=== PATIENT | male | born 1955 | race African-American/Black ===

== ENCOUNTER 2017-05-28 14:43 | Outpatient (CLI) | payer MEDICARE, MEDICAID ==
--- OUTSIDE RECORDS SUMMARY | 2017-05-28 14:46 | XMS | Clinical Summary ---
:1955 Author Organization [facility] Address [address] [place] [phone] Phone Care Team Providers Name Role Phone , Primary Care Provider Unavailable Allergies Not on File Current Medications Not on file Active Problems Not on file Social History Tobacco Use Types Packs/Day Years Used Date Never Assessed Sex Assigned at Date Recorded Not on file Last Filed Vital Signs Not on file Plan of Treatment Not on file Results Not on filefrom Last 3 Months
[2017-05-28 16:20] LABS: Hematocrit 39.8 % (42.0-52.0); Mean Platelet Volume 7.2 fL (7.4-10.4); Red Blood Cell (RBC) Count 3.84 mill/uL (4.70-6.10); White Blood Cell (WBC) Count 5.5 thou/uL (4.8-10.8)
[2017-05-28 16:26] LABS: PTT 34.6 SEC (22.9-36.1); Prothrombin Time 13.6 SEC (12.0-14.7)
== END 2017-05-28 14:44 | disposition home or self-care (01) ==
LOC: LABBT 14:43
PROVIDERS: ATTEND Surgery
DX: Z01.818 Encounter for other preprocedural examination (principal); M48.02 Spinal stenosis, cervical region; M50.00 Cervical disc disorder with myelopathy, unspecified cervical region; M50.10 Cervical disc disorder with radiculopathy, unspecified cervical region
CPT/HCPCS: 85027; 85610; 85730; 93005; 93010

== ENCOUNTER 2017-06-05 05:43 | Day surgery (SDC) | payer MEDICARE, MEDICAID ==
[2017-06-05] MEDS ORDERED: Thrombin 5000 UNITS/5 ML VIAL ONE (06:29)
[2017-06-05] MEDS ORDERED: Sodium Chloride 0.9% 10 ML ONE (06:29)
[2017-06-05] MEDS ORDERED: Phenylephrine 10 MG/NS 250 ML 250 ML ONE (07:14)
[2017-06-05] MEDS ORDERED: Albumin 5% 500 ML ONE (07:14)
[2017-06-05] MEDS ORDERED: Midazolam HCl 2 mg/2 ml Vial ONE (07:30)
[2017-06-05] MEDS ORDERED: Fentanyl 250 MCG/5 ML VIAL ONE ×2 (07:30→09:33)
[2017-06-05] MEDS ORDERED: Glycopyrrolate 0.2 MG/ML 5 ML SYRINGE ONE (07:36)
[2017-06-05] MEDS ORDERED: Vecuronium 10 MG VIAL ONE ×2 (07:36→08:51)
[2017-06-05] MEDS ORDERED: Dexamethasone 20 MG/5 ML VIAL ONE (07:36)
[2017-06-05] MEDS ORDERED: Esmolol 100 MG/10 ML VIAL ONE (07:36)
[2017-06-05] MEDS ORDERED: Ondansetron HCl/PF 4 MG/2 ML Vial ONE (07:36)
[2017-06-05] MEDS ORDERED: PHENYLEPHRINE-NS 100 MCG/ML 10 ML SYRINGE ONE (07:36)
[2017-06-05] MEDS ORDERED: Lidocaine 2% PF 10 ML AMP (For Epidural Use) ONE (07:36)
[2017-06-05] MEDS ORDERED: Propofol 200 MG/20 ML VIAL ONE (07:36)
[2017-06-05] MEDS ORDERED: Promethazine HCl 25 MG/ML VIAL IM PRN ×2 (09:30→11:41)
[2017-06-05] MEDS ORDERED: Promethazine HCl 25 MG/ML VIAL SLOW IVP PRN (09:30)
[2017-06-05] MEDS ORDERED: Morphine Sulfate 2 MG/ML SYRINGE SLOW IVP PRN ×2 (09:30→11:41)
[2017-06-05] MEDS ORDERED: Meperidine HCl/PF 25 MG/ML VIAL SLOW IVP PRN (09:30)
[2017-06-05] MEDS ORDERED: Ondansetron HCl/PF 4 MG/2 ML Vial IVP PRN (09:30)
[2017-06-05] MEDS ORDERED: HYDROmorphone 2 MG/ML VIAL SLOW IVP PRN (09:30)
[2017-06-05] MEDS ORDERED: Milk Of Magnesia 30 ML UDCUP PO PRN (11:41)
[2017-06-05] MEDS ORDERED: Acetaminophen 325 MG TAB PO PRN (11:41)
[2017-06-05] MEDS ORDERED: Mag-Al 1200 mg/1200 mg/30 ML UDCUP PO PRN (11:41)
[2017-06-05] MEDS ORDERED: traMADol HCl 50 MG TAB PO PRN (11:41)
[2017-06-05] MEDS ORDERED: Bisacodyl 10 MG SUPP PR PRN (11:41)
[2017-06-05] MEDS ORDERED: Acetaminophen/Codeine 30-300mg Tablet PO PRN (11:41)
[2017-06-05] MEDS ORDERED: Fleet Enema 133 ML BOT PR PRN (11:41)
[2017-06-05] MEDS ORDERED: Fentanyl 100 MCG/2 ML VIAL ONE ×2 (12:02→12:21)
--- NOTE | 2017-06-05 12:39 | OP ---
OR: 12. WOUND TYPE: Type 1 wound. SURGEON: Jimmie Bagley M.D. ADMISSION LIAISON: Phillip Wiley PA-C. PREPROCEDURE DIAGNOSIS: Cervical stenosis with myelopathy, C3-C5. POSTPROCEDURE DIAGNOSIS: Cervical stenosis with myelopathy C3-C5. PROCEDURES: 1. Anterior C3-C4 and C4-C5 diskectomies for decompression of the spinal cord and nerve roots. 2. Preparation of endplates C3-C4 and C4-C5 with placement of interbody spacer C3-C4 and C4-C5 for arthrodesis and fusion with packing of spacer using local bone autograft obtained from same incision and allograft C3-C4 and C4-C5. 3. Anterior cervical plate and screw fixation, C3, C4, and C5. 4. Use of operative microscope for microdissection. PROCEDURE IN DETAIL: After informed consent was obtained from the patient, the patient brought to O R 12. Proper patient pause and identification was carried out. He was placed supine on the operati ng room table and his cervical spine kept in neutral position with some extension, as the patient george d a very short thick neck and we had to go quite cephalad in our exposure given his C3-C4 and C4-C5 stenosis. A bryson was made in the right anterior neck and this area was sterilely cleansed, prepared , and draped. Proper patient pause and identification was carried out. The wound was then opened w ith a combination of sharp, monopolar, and blunt dissection, proceeded lateral to the larynx and pha rynx and medial to the right carotid sheath. Our anesthesia colleagues have noted that his intubati on have been a bit more difficult than is typical, and given the thickness of his neck and perhaps s ome of the edema, the dissection took a bit longer than it typically would; however, we were satisfi ed with our exposure at C3, C4, C5 and localization film confirmed our area of interest. We then em ployed distraction at C3-4 and diskectomy was then performed at C3-C4 with use of the operative micr oscope for microdissection. We were satisfied with our decompression at that segment and the endpla guillermina were prepared and interbody spacer of appropriate dimension was then placed and then turned our attention to the C4-5 segment. Distraction occurred there and the C4-C5 diskectomy was performed, p lacement of interbody spacer occurred there, packed with local bone autograft and allograft for arth rodesis, and we were satisfied with our placement at C3-4 and C4-5. We then removed the microscope and fixed the plate to the anterior cervical spine at C3, C4, C5. I opted to only put a left-sided screw at C3, as the patient's C3 had a bit of an apex shape anteriorly, and I was not satisfied with the purchase of the screw we would have had on the right side at C3. We obtained excellent, howeve r, fixation at C3, C4, C5 using the 5 screws. Copious irrigation occurred throughout. The wound wa s then maximized in its hemostasis and closed in anatomic layers over a drain. The patient then taylor rged from anesthesia.
--- NOTE | 2017-06-05 12:52 | RAD ---
SINGLE VIEW OF THE CHEST: Comparison: 09-16-15 History: Bronchi. FINDINGS: Single view of the chest shows a normal sized cardiomediastinal silhouette. There is no evidence of consolidation, mass, or pleural effusion. The bones are unremarkable. IMPRESSION: No evidence of acute cardiopulmonary disease. POS: [facility]
[2017-06-05] MEDS ORDERED: Morphine Sulfate 2 MG/ML SYRINGE ONE ×2 (13:12→13:35)
[2017-06-05] MEDS: Sodium Chloride 0.9% 1,000 ML IV SCH ×2 (14:41→22:29)
[2017-06-05] MEDS ORDERED: Nitroglycerin 0.4 MG TAB (25 Tab Bottle) SL PRN (15:06)
[2017-06-05] MEDS: Cepastat Lozenges 1 LOZ PO PRN ×3 (15:41→23:03)
[2017-06-05] MEDS ORDERED: NITROGLYCERIN 0.3 MG SL PRN (17:29)
[2017-06-05] MEDS: HYDROcodone/Acetaminophen 7.5/325 mg Tablet PO PRN ×2 (18:21→22:28)
[2017-06-05] MEDS: tiZANidine HCl 4 MG TAB PO PRN (18:23)
[2017-06-05] MEDS ORDERED: Metoprolol Tartrate 25 MG TAB PO SCH ×2 (19:15→21:00)
[2017-06-05] MEDS: Zolpidem Tartrate 5 MG TAB PO SCH (20:05)
[2017-06-05] MEDS: traMADol HCl 50 MG TAB PO SCH (20:05)
[2017-06-05] MEDS: Atorvastatin Calcium 20 MG TAB PO SCH (20:05)
[2017-06-05] MEDS: Metoprolol Tartrate 25 MG TAB PO SCH (20:05)
[2017-06-05] MEDS: OLANZapine 5 MG TAB PO SCH (20:06)
[2017-06-05] MEDS ORDERED: OLANZAPINE PO SCH (21:00)
[2017-06-05] MEDS ORDERED: Non-Formulary Item 1 EACH (Zolpidem Tartrate [Zolpidem Tartrate] 10 MG) PO SCH (21:00)
[2017-06-05] MEDS ORDERED: Pravastatin Sodium 40 MG TAB PO SCH (21:00)
[2017-06-06] MEDS: HYDROcodone/Acetaminophen 7.5/325 mg Tablet PO PRN ×3 (04:30→18:13)
[2017-06-06] MEDS: tiZANidine HCl 4 MG TAB PO PRN ×3 (04:30→18:13)
[2017-06-06] MEDS ORDERED: Non-Formulary Item 1 EACH (Omeprazole [Omeprazole] 1 TAB) PO SCH (09:00)
[2017-06-06] MEDS ORDERED: Hydrochlorothiazide 25 MG TAB PO SCH (09:00)
[2017-06-06] MEDS ORDERED: Atorvastatin Calcium 20 MG TAB PO SCH (09:00)
[2017-06-06] MEDS: FLUoxetine HCl 20 MG CAP PO SCH (09:05)
[2017-06-06] MEDS: Hydrochlorothiazide 25 MG TAB PO SCH (09:05)
[2017-06-06] MEDS: Metoprolol Tartrate 25 MG TAB PO SCH ×2 (09:05→20:00)
[2017-06-06] MEDS: traMADol HCl 50 MG TAB PO SCH ×3 (09:06→20:01)
[2017-06-06] MEDS: Famotidine/PF 20 mg/2ml Vial SLOW IVP SCH ×2 (09:12→20:01)
[2017-06-06] MEDS: Cepastat Lozenges 1 LOZ PO PRN (09:13)
--- NOTE | 2017-06-06 09:22 | PRG ---
DATE OF SERVICE: 06/06/2017 SUBJECTIVE: Mr. Katz is postoperative day #1 from C3 through C5 ACDF. It was a difficult air way intubation and has a very thick neck, and given that we are working in the upper cervical spine, as expected, he has some dysphagia and dysphonia this morning, although he is tolerating his oral i ntake. His drain output was 70 mL and we will keep this in place. He has good strength throughout his upper and lower extremity myotomes and states improvement in his upper extremity pain and even i n his right leg pain. We will continue to monitor the patient today.
[2017-06-06] MEDS: Dexamethasone 4 MG, Admixture Fee 1 EACH in Sodium Chloride 0.9% 50 ML IVPB SCH ×3 (12:52→23:20)
[2017-06-06] MEDS: Sodium Chloride 0.9% 1,000 ML IV SCH (18:14)
[2017-06-06] MEDS: Atorvastatin Calcium 20 MG TAB PO SCH (20:00)
[2017-06-06] MEDS: Zolpidem Tartrate 5 MG TAB PO SCH (20:01)
[2017-06-06] MEDS: OLANZapine 5 MG TAB PO SCH (20:01)
[2017-06-07] MEDS: HYDROcodone/Acetaminophen 7.5/325 mg Tablet PO PRN ×3 (04:19→18:12)
[2017-06-07] MEDS: tiZANidine HCl 4 MG TAB PO PRN ×2 (04:19→12:28)
[2017-06-07] MEDS: Sodium Chloride 0.9% 1,000 ML IV SCH ×2 (04:23→17:35)
[2017-06-07] MEDS: Dexamethasone 4 MG, Admixture Fee 1 EACH in Sodium Chloride 0.9% 50 ML IVPB SCH ×3 (06:01→18:12)
[2017-06-07] MEDS: Metoprolol Tartrate 25 MG TAB PO SCH ×2 (08:28→20:27)
[2017-06-07] MEDS: Famotidine/PF 20 mg/2ml Vial SLOW IVP SCH ×2 (08:28→20:29)
[2017-06-07] MEDS: Hydrochlorothiazide 25 MG TAB PO SCH (08:28)
[2017-06-07] MEDS: traMADol HCl 50 MG TAB PO SCH ×3 (08:28→20:28)
[2017-06-07] MEDS: FLUoxetine HCl 20 MG CAP PO SCH (08:28)
--- NOTE | 2017-06-07 14:04 | PRG ---
DATE OF SERVICE: 06/07/2017 SUBJECTIVE: Mr. Katz is postoperative #2 from C3-C5 ACDF. He had a difficult airway at the t jose antonio of surgery and as such, I have let his drain a bit longer than typical. Also to minimize any ed deni, we have put him on Decadron. He states he is certainly improving. His drain output has remain ed on the higher side over the last 24 hours and I will leave this in place. Overall, I am very ple ased with how he is doing from a myelopathic standpoint. He has good strength in his extremities. He is already ambulating. I anticipate perhaps dismissal tomorrow assuming the drain output is sati sfactory. The patient is now on room air and tolerating orals.
[2017-06-07] MEDS: Zolpidem Tartrate 5 MG TAB PO SCH (20:26)
[2017-06-07] MEDS: OLANZapine 5 MG TAB PO SCH (20:26)
[2017-06-07] MEDS: Atorvastatin Calcium 20 MG TAB PO SCH (20:29)
[2017-06-08] MEDS: Dexamethasone 4 MG, Admixture Fee 1 EACH in Sodium Chloride 0.9% 50 ML IVPB SCH (00:14)
[2017-06-08] MEDS: Sodium Chloride 0.9% 1,000 ML IV SCH (07:30)
[2017-06-08 08:32] VITALS: TEMP 97.7
[2017-06-08] MEDS: DEXAMETHASONE IVPB SCH ×2 (08:42→10:53)
[2017-06-08] MEDS: traMADol HCl 50 MG TAB PO SCH (08:42)
[2017-06-08] MEDS: SODIUM CHLORIDE IVPB SCH ×2 (08:42→10:53)
[2017-06-08] MEDS: Hydrochlorothiazide 25 MG TAB PO SCH (08:42)
[2017-06-08] MEDS: ADMIXTURE FEE IVPB SCH ×2 (08:42→10:53)
[2017-06-08] MEDS: Famotidine/PF 20 mg/2ml Vial SLOW IVP SCH (08:42)
[2017-06-08] MEDS: Metoprolol Tartrate 25 MG TAB PO SCH (08:43)
[2017-06-08] MEDS: FLUoxetine HCl 20 MG CAP PO SCH (08:43)
[2017-06-08 10:54] VITALS: BP 161/96
--- NOTE | 2017-06-08 11:56 | PRG ---
Phillip Wiley PA-C, dictating for Jimmie Bagley MD DATE OF SERVICE: 06/08/2017 SUBJECTIVE: Mr. Katz is now postoperative day #3, having undergone an ACDF C3-C5 with Dr. Nia sr. The patient continues to improve. His swallowing has also improved. He remains at neurologic fine with good strength in the bilateral upper extremities. His DEMETRIUS drain output is trending downwa rd and I removed it at bedside today. The patient tolerated the procedure well. I redress the inci carola and I will discharge the patient home today. He is having some bradycardia with a slight amoun t of hypertension. He will hold his metoprolol and contact his primary care provider for followup a ppointment this week. He will also hold his aspirin for 1 week postoperatively. We discussed aron nued postoperative activity restrictions and the fact that he needs to wear his collar any time he i s up out of bed. He stated his understanding and will be discharged later today.
--- NOTE | 2017-06-08 18:50 | DIS ---
DATE OF ADMISSION: 06/05/2017 DATE OF DISCHARGE: 06/08/2017 DISCHARGE DIAGNOSES: 1. Cervical radiculopathy. 2. Cervical spondylosis with myelopathy. 3. Neck pain. HOSPITAL COURSE: Mr. Katz was admitted for elective surgery with Dr. Bagley including a C3 th rough C5 ACDF for cervical myelopathy on 06/05/2017. The patient's surgery was without complication and he recovered from 3 overnight stays on the surgical unit. At the time of discharge, he was cynthia rologically intact. His anterior cervical drain was removed without difficulty on the day of discha rge. He did have some swallowing difficulties postoperatively and was placed on a Decadron taper al brodie with Pepcid. He has chronic hypertension with some bradycardia and was advised to hold his meto prolol and follow up with his primary care provider this week in order to help get back under better control. He was discharged with appropriate outpatient followup appointment, prescription, and pat ient education. We reviewed that he needs to wear his collar when he is out of bed. We did discuss the importance of smoking cessation. At the time of discharge, the patient was in satisfactory con dition with good pain control, in fact, the only complaint he had was swallowing difficulties and no neck or bilateral upper extremity pain.
== END 2017-06-08 12:15 | disposition home or self-care (01) ==
LOC: SDC 05:43 → SURG B 11:38 → SDC 06-08 12:15
PROVIDERS: ATTEND Surgery
PROC: 0RG20A0 Fusion of 2 or more Cervical Vertebral Joints with Interbody Fusion Device, Anterior Approach, Anterior Column, Open Approach (ICD-10-PCS; principal; 2017-06-05)
DX: M48.02 Spinal stenosis, cervical region (principal); M54.12 Radiculopathy, cervical region; M50.021 Cervical disc disorder at C4-C5 level with myelopathy; I10 Essential (primary) hypertension; F17.200 Nicotine dependence, unspecified, uncomplicated; Z95.5 Presence of coronary angioplasty implant and graft; Z98.890 Other specified postprocedural states
CPT/HCPCS: 20930; 20936; 22551; 22552; 22853 ×2; 71010; 76001; 96374 ×2; C1713; P9045; A4216; J0131; J0360; J0690; J1100; J2001; J2250; J2270; J2405; J2704; J3010; J3490; J7050; J7620; S0028

== ENCOUNTER 2017-08-12 11:48 | Inpatient (IN) | payer MEDICARE, MEDICAID ==
[2017-08-12 12:23] LABS: #Eosinphils 0.2 thou/uL (0.0-0.7); #Lymphocytes 1.6 thou/uL (1.20-3.40); #Monocytes 0.4 thou/uL (0.11-0.59); #Neutrophils 2.8 thou/uL (1.40-6.50); %Basophils 0.9 % (0.0-1.0); %Eosinophils 3.7 % (0.0-10.0); %Monocytes 7.1 % (0.0-10.0); Hematocrit 39.1 % (42.0-52.0); Mean Platelet Volume 7.4 fL (7.4-10.4); Red Blood Cell (RBC) Count 3.88 mill/uL (4.70-6.10); White Blood Cell (WBC) Count 4.9 thou/uL (4.8-10.8)
[2017-08-12] MEDS ORDERED: Nitroglycerin 2% Ointment 1 INCH/1 GM Packet TOP SCH (12:30)
[2017-08-12] MEDS ORDERED: Diltiazem HCl 125 MG, Admixture Fee 1 EACH in Sodium Chloride 0.9% 100 ML IVPB SCH (12:30)
[2017-08-12] MEDS ORDERED: Nitroglycerin 2% Ointment 1 INCH/1 GM Packet ONE (12:32)
--- NOTE | 2017-08-12 12:35 | RAD ---
CHEST ONE VIEW: History: Chest pain. Comparison: 06-05-17 FINDINGS: Lungs are hypoinflated. No pneumothorax. No effusion. Cardiac silhouette and mediastinal contours are similar. No acute osseous abnormality. IMPRESSION: No acute intrathoracic abnormality. No significant change. POS: [facility]
[2017-08-12 12:44] LABS: ALT (SGPT) 54 U/L (8-55); AST (SGOT) 52 U/L (5-34); Alkaline Phosphatase 81 U/L (40-150); Anion Gap 16 mmol/L (10-20); BUN (Urea Nitrogen) 14 mg/dL (8.4-25.7); Bilirubin, Total 0.4 mg/dL (0.2-1.2); CK (CPK) 1224 U/L (30-200); Calc. Creatinine Clearance 0 mL/min (70-130); Calcium 9.7 mg/dL (7.8-10.44); Carbon Dioxide 22 mmol/L (23-31); Chloride 104 mmol/L (98-107); Estimated GFR-MDRD 85; Globulin 3.6 g/dL (2.4-3.5); Protein, Total 7.8 g/dL (5.8-8.1)
[2017-08-12 12:46] LABS: Troponin I 0.016 ng/mL (< 0.028)
[2017-08-12 14:32] LABS: Amphetamine Not Detected (NotDetected); Methadone Not Detected (NotDetected); Methamphetamine Not Detected (NotDetected)
[2017-08-12 17:13] LABS: Troponin I 0.038 ng/mL (< 0.028)
[2017-08-12] MEDS ORDERED: Aspirin 325 MG TAB PO SCH (20:00)
[2017-08-12] MEDS ORDERED: Ondansetron HCl/PF 4 MG/2 ML Vial IVP PRN (20:37)
[2017-08-12] MEDS ORDERED: Ondansetron ODT 4 MG TAB PO PRN (20:37)
[2017-08-12] MEDS ORDERED: tiZANidine HCl 4 MG TAB PO PRN (20:37)
[2017-08-12] MEDS ORDERED: cloNIDine 0.1 MG TAB PO PRN (20:37)
[2017-08-12] MEDS ORDERED: Nitroglycerin 0.4 MG TAB (25 Tab Bottle) PO PRN (20:37)
[2017-08-12] MEDS ORDERED: Acetaminophen 500 MG TAB PO PRN (20:37)
[2017-08-12] MEDS ORDERED: Enoxaparin Sodium 120 MG/0.8 ML SYRINGE SC SCH (21:00)
[2017-08-12] MEDS: OLANZapine 5 MG TAB PO SCH (21:54)
[2017-08-12] MEDS: traMADol HCl 50 MG TAB PO PRN (21:55)
[2017-08-12] MEDS: Metoprolol Tartrate 25 MG TAB PO SCH (21:56)
[2017-08-12] MEDS: Famotidine 20 MG TAB PO SCH (21:56)
[2017-08-12] MEDS: Zolpidem Tartrate 5 MG TAB PO PRN (22:55)
--- NOTE | 2017-08-12 23:08 | HP ---
DATE OF ADMISSION: 08/12/2017 PRIMARY CARE PROVIDER: Santiago in [place], [place]. CHIEF COMPLAINT: Chest pain and shortness of breath. HISTORY OF PRESENT ILLNESS: This is a 62-year-old -Mexican male who presents to [facility] complaining of midsternal chest pain, tightness with some shortness of breath that began approximately 3 days prior to this evaluation. Patient states he had 3 separate episodes of chest tightness, difficulty breathing with diaphoresis and palpitations. Armida ent states the symptoms resolved spontaneously; however, after the third episode, patient became conc erned, seeking medical attention by EMS personnel. Patient was evaluated by EMS with EKG showing atr ial fibrillation with rapid ventricular response with heart rates in the 140s. Patient was given IV Cardizem, aspirin, and nitroglycerin and transported to the emergency room for evaluation. Patient a dmits to history of "5 myocardial infarctions" undergoing cardiac stent placement in 2010. Patient s tates he has had significant or consistent follow up with Cardiology Service. Patient states that he underwent preoperative evaluation before having a cervical spine surgery in 05/2017. Patient states he was given cardiac clearance by his primary [facility] at [facility]. Patient does state that he takes aspirin daily and has been compliant with his chronic medication regimen. Patient denied a ny recent fever, chills, increased cough, congestion. Patient does admit to continuing smoking up to half a pack to 1 pack of cigarettes daily and states he would like to quit. Patient initially rated the pain in his chest, 3/10, though with some tightness component. Patient denied taking any sublin gual nitroglycerin at home, but did take antacid without relief. In the emergency room, patient rece ived IV diltiazem at 5 mg per hour with overall rate control in the 80s. Patient was transferred to the telemetry unit for further evaluation. PAST MEDICAL HISTORY: 1. Coronary artery disease status post cardiac stent placement x1. 2. Tobacco abuse, ongoing. 3. Hypertension. 4. Gastroesophageal reflux disease. 5. Hyperlipidemia. 6. Anxiety. 7. Depression. 8. History of benign prostatic hyperplasia. 9. Cervical spine stenosis. PAST SURGICAL HISTORY: 1. Status post cardiac stent placement in 02/2011. 2. Status post prostate surgery. 3. Status post C3 through C5 diskectomy with decompression of the spinal cord, 05/2017. CURRENT MEDICATIONS: 1. Tylenol #3, 300/30 mg 1-2 tabs p.o. q.6 hours p.r.n. pain. 2. Enteric-coated aspirin 81 mg 1 tab p.o. daily. 3. Prozac 20 mg 1 tab p.o. daily. 4. Hydrochlorothiazide 25 mg 1 tab p.o. daily. 5. Lisinopril 20 mg 1 tab p.o. daily. 6. Metoprolol tartrate 12.5 mg p.o. b.i.d. 7. Nitroglycerin 0.3 mg sublingually every 5 minutes p.r.n. chest pain. 8. Olanzapine 15 mg p.o. at bedtime. 9. Omeprazole 40 mg one tab p.o. daily. 10. Pravachol 80 mg 1 tab p.o. daily. 11. Tizanidine 4 mg p.o. t.i.d. p.r.n. 12. Tramadol 50 mg p.o. every 6 hours p.r.n. pain. 13. Ambien 10 mg p.o. at bedtime p.r.n. ALLERGIES: No known drug allergies. FAMILY HISTORY: Positive for hypertension and coronary artery disease. SOCIAL HISTORY: Patient resides in [place], [place]. Currently disabled. Smokes up to a half a pack to 1 pack of cigarettes daily. Occasional alcohol use. No illicit drug use. REVIEW OF SYSTEMS: The following complete review of systems was negative, unless otherwise mentioned in the HPI or below: Constitutional: Weight loss or gain, ability to conduct usual activities. Skin: Rash, itching. Eyes: Double vision, pain. ENT/Mouth: Nose bleeding, neck stiffness, pain, tenderness. Cardiovascular: Palpitations, dyspnea on exertion, orthopnea. Respiratory: Shortness of breath, wheezing, cough, hemoptysis, fever or night sweats. Gastrointestinal: Poor appetite, abdominal pain, heartburn, nausea, vomiting, constipation, or diarr hea. Genitourinary: Urgency, frequency, dysuria, nocturia. Musculoskeletal: Pain, swelling. Neurologic/Psychiatric: Anxiety, depression. Allergy/Immunologic: Skin rash, bleeding tendency. PHYSICAL EXAMINATION: VITAL SIGNS: On admission, blood pressure 150/98, pulse 75, respiratory rate 18, temperature 97.4 de grees Fahrenheit, O2 saturation 96% on room air. GENERAL APPEARANCE: This is a 62-year-old -Mexican male, alert and oriented x3, pleasant, in no acute distress. HEENT: Pupils are equal, round, and reactive to light and accommodation. Extraocular muscles are in tact. No scleral icterus, no conjunctival injection. Nares patent. OP is clear. NECK: Supple, no cervical adenopathy, no thyromegaly, no carotid bruits, no JVD appreciated. Cervic al spine with full active and passive range of motion. No meningeal signs appreciated. LUNGS: Decreased breath sounds in the bases bilaterally. CARDIOVASCULAR: S1, S2 with distant heart sounds. No murmur noted. ABDOMEN: Rounded, soft, nontender, nondistended. Bowel sounds are positive in all four quadrants. There is no hepatosplenomegaly, no abdominal bruits, no rebound or guarding appreciated. EXTREMITIES: Warm and dry with fair turgor. No clubbing, cyanosis or asymmetric edema appreciated. Pulses palpable distally at the dorsalis pedis, posterior tibial, and popliteal arteries bilaterally . Capillary refill less than 2 seconds. NEUROLOGIC: Cranial nerves II-XII are grossly intact. No focal or lateralizing signs appreciated. PERTINENT LABORATORY AND X-RAY FINDINGS: Sodium 138, potassium 3.7, chloride 104, CO2 of 22, BUN 14, creatinine 1.06 with estimated GFR of 85, glucose 168, calcium 9.7, total bilirubin 0.4, AST 52, ALT 54, alkaline phosphatase 81. Total CK 08/17/2017. Troponin I ranged between 0.016 to 0.038. BNP 1 7. CBC showed a white blood cell count 4.9, hemoglobin 13, hematocrit 39, MCV 101, platelet count 28 6 with normal differential. Urine drug screen dated 08/12/2017 negative. Portable chest x-ray dated 08/12/2017 showed no acute cardiopulmonary process. EKG dated 08/12/2017 by my interpretation shows atrial fibrillation with heart rates in the 90s. Normal R-wave progression noted in the precordial leads. Normal axis. No acute ST-T wave changes appreciated. ASSESSMENT AND PLAN: 1. New onset atrial fibrillation with rapid ventricular response. Patient will be admitted to the t elemetry unit. Exact time course of atrial fibrillation initiation unclear. Currently in normal sin us rhythm after initial management with Cardizem. We will continue metoprolol 12.5 mg p.o. b.i.d. Marge haley 2D transthoracic echocardiogram in the a.m. Check TSH and magnesium level. Consult Cardiology Service for evaluation in the a.m. Patient may need additional evaluation including ischemic rule ou t with potential cardiac catheterization given the patient's history of coronary artery disease. Rossana barcenas Lovenox 1 mg per kilogram subcutaneously x1 dose now. Continue aspirin 325 mg daily. 2. Coronary artery disease, status post cardiac stent placement. See #1 above. Continue aspirin 32 5 mg p.o. daily. Check fasting lipid profile in the a.m. 3. Hypertension. Labile. We will resume home antihypertensive regimen and monitor clinical respons e. 4. Hyperglycemia. We will check A1c level in the a.m. No specific history of documented or diagnos ed diabetes mellitus type 2. 5. Anxiety/depression. Continue home regimen of Prozac 20 mg p.o. daily and olanzapine 15 mg p.o. a t bedtime. 6. Hyperlipidemia. Check fasting lipid profile in the a.m. Continue Pravachol 80 mg p.o. daily. 7. Tobacco abuse. We will offer smoking cessation resources prior to discharge. 8. Prophylaxis. Sequential compression devices while in bed. Pepcid 20 mg p.o. b.i.d. 9. Code status is FULL. Surrogate medical decision maker is patient's sister.
[2017-08-13 05:57] LABS: Hematocrit 36.5 % (42.0-52.0); Mean Platelet Volume 8.1 fL (7.4-10.4); Metamyelocyte 1 % (0-0); Neutrophil 55 % (42-75); White Blood Cell (WBC) Count 4.9 thou/uL (4.8-10.8)
[2017-08-13 06:18] LABS: Anion Gap 16 mmol/L (10-20); BUN (Urea Nitrogen) 17 mg/dL (8.4-25.7); Calc. Creatinine Clearance 125 mL/min (70-130); Carbon Dioxide 21 mmol/L (23-31); Chloride 103 mmol/L (98-107); Cholesterol 163 mg/dl (< 200 Desired); Estimated GFR-MDRD 89; Magnesium 2.5 mg/dL (1.6-2.6)
--- NOTE | 2017-08-13 08:19 | PDOC.PN ---
- Subjective Encounter Start Date: 08/13/17 Encounter Start Time: 08:16 Subjective: Patient seen and examined feeling better - Objective Resuscitation Status: Resuscitation Status FULL:Full Resuscitation Vital Signs & Weight: Vital Signs (12 hours) Temp Pulse Resp BP Pulse Ox 08/13/17 04:00 97.6 F 77 20 128/68 97 08/13/17 00:00 98.4 F 85 20 124/59 L 95 08/12/17 22:13 95 Weight Weight 263 lb 8 oz I&O: 08/12/17 08/13/17 08/14/17 06:59 06:59 06:59 Intake Total 1261 Output Total 700 Balance 561 Result Diagrams: 08/13/17 04:07 08/13/17 04:07 Phys Exam - Physical Examination Constitutional: NAD HEENT: PERRLA, moist MMs, sclera anicteric, TM's clear Neck: no nodes, no JVD, supple, full ROM Respiratory: no wheezing, no rales, no rhonchi, clear to auscultation bilateral Cardiovascular: no significant murmur, irregular Gastrointestinal: soft, non-tender, no distention, positive bowel sounds Musculoskeletal: pulses present Neurological: non-focal, normal sensation, moves all 4 limbs Lymphatic: no nodes Psychiatric: normal affect, A&O x 3 Dx/Plan (1) New onset atrial fibrillation Code(s): I48.91 - UNSPECIFIED ATRIAL FIBRILLATION Status: Acute (2) CAD (coronary artery disease) Code(s): I25.10 - ATHSCL HEART DISEASE OF [place] CORONARY ARTERY W/O ANG PCTRS Status: Acute (3) Dyslipidemia Code(s): E78.5 - HYPERLIPIDEMIA, UNSPECIFIED Status: Chronic (4) Hypertension Code(s): I10 - ESSENTIAL (PRIMARY) HYPERTENSION Status: Chronic - Plan On metoprolol--titrate for rate control -: Await cardiology input on the Afib management -: ? Anticoagulation--defer to cardiology * .
[2017-08-13] MEDS: Hydrochlorothiazide 25 MG TAB PO SCH (09:37)
[2017-08-13] MEDS: Aspirin 325 MG TAB PO SCH (09:37)
[2017-08-13] MEDS: Famotidine 20 MG TAB PO SCH ×2 (09:38→20:55)
[2017-08-13] MEDS: Atorvastatin Calcium 20 MG TAB PO SCH (09:38)
[2017-08-13] MEDS: Lisinopril 20 MG TAB PO SCH (09:38)
[2017-08-13] MEDS: FLUoxetine HCl 20 MG CAP PO SCH (09:38)
[2017-08-13] MEDS: Metoprolol Tartrate 25 MG TAB PO SCH ×2 (09:38→20:55)
[2017-08-13] MEDS: traMADol HCl 50 MG TAB PO PRN ×2 (14:11→20:54)
[2017-08-13] MEDS: hydrALAZINE 20 MG/ML VIAL SLOW IVP PRN ×2 (18:46→23:53)
[2017-08-13] MEDS ORDERED: Communication Order-Pharmacy FS SCH (19:15)
[2017-08-13] MEDS: Fenofibrate Nanocrystallized 145 MG TAB PO SCH (20:54)
[2017-08-13] MEDS: OLANZapine 5 MG TAB PO SCH (20:54)
--- NOTE | 2017-08-13 23:09 | CON ---
DATE OF CONSULTATION: 08/13/2017 REASON FOR CONSULTATION: Chest pain and atrial fibrillation. HISTORY OF PRESENT ILLNESS: Mr. Katz is a pleasant 62-year-old gentleman who has seen and eval uated by java web services developer in the past. He was seen and evaluated by Dr. Abelino Dawn several years ago. He underwent successful stent implantation. He states he has been lost to follow up. He does stat e he has had several stress tests over the last several years after complaining of chest pain. He re cently presented with atrial fibrillation with RVR in addition to chest tightness. He states he felt like there was an elephant sitting on his chest. Upon arrival to the floor from the emergency room, he converted back to sinus rhythm. PAST MEDICAL HISTORY: As above including hypertension, acid reflux, anxiety disorder, depression, BP H. PAST SURGICAL HISTORY: Prostate surgery, diskectomy. HOME MEDICATIONS: Include aspirin, Prozac, hydrochlorothiazide, lisinopril, metoprolol, olanzapine, omeprazole, Pravachol, tizanidine, tramadol, and Ambien. FAMILY HISTORY: None. SOCIAL HISTORY: Positive tobacco use. REVIEW OF SYSTEMS: Ten-point review of systems is reviewed and is as above, negative. PHYSICAL EXAMINATION: VITAL SIGNS: Blood pressure 185/114, pulse 68, temperature 97.4. GENERAL: Patient is a pleasant male who is in no acute distress. The patient appears his stated age . NEUROLOGIC: The patient is alert and oriented times 3 with no focal neurologic deficits. HEENT: Sclerae without icterus. Mouth has moist mucous membranes with normal pallor. NECK: No JVD. Carotid upstroke brisk. No bruits bilaterally. LUNGS: Clear to auscultation with unlabored respirations. BACK: No scoliosis or kyphosis. CARDIAC: Regular rate and rhythm with normal S1 and S2. No S3 or S4 noted. No significant rubs, mu rmurs, thrills, or gallops noted throughout the precordium. PMI is not displaced. There is no jeff ternal heave. ABDOMEN: Soft, nontender, nondistended. No peritoneal signs present. No hepatosplenomegaly. No ab normal striae. EXTREMITIES: 2+ femoral and 2+ dorsalis pedis pulses. No cyanosis, clubbing, or edema. SKIN: No gross abnormalities. PERTINENT LABORATORY DATA: Hemoglobin 13.2, creatinine 1.02. Peak troponin 0.038, which is indeterm inate. Triglyceride level 1246. IMPRESSION: 1. Acute onset chest pain. 2. Coronary artery disease. 3. Atrial fibrillation, now in sinus rhythm. 4. Hypertriglyceridemia. RECOMMENDATIONS: I discussed a conservative and aggressive approach with Mr. Katz. He states he has had several stress tests in the past and have all been negative after complaining of chest eliana n. He, therefore, decided to proceed with coronary angiography. I discussed the procedure in full d etail with Mr. Katz. The risks of the procedure include but are not limited to the following: , stroke, [place], need for emergency surgery, loss of limb, bleeding, and infection, as well as a re action to the dye causing kidney failure and needing long-term dialysis. I also discussed the risks of PCI to include all of the above including coronary dissection and perforation in addition to acute stent thrombosis and restenosis. All questions were answered. Given the above, the patient agreed to proceed with the above procedure. Given his recent episode of atrial fibrillation, we would recom mend bare metal stent. We will discuss anticoagulation therapy with Mr. Katz after angiography . We would recommend TriCor, given his current hypertriglyceridemia.
[2017-08-13] MEDS: Zolpidem Tartrate 5 MG TAB PO PRN (23:53)
[2017-08-14] MEDS: Sodium Chloride 0.9% 1,000 ML IV SCH ×2 (05:42→18:26)
[2017-08-14] MEDS: Atorvastatin Calcium 20 MG TAB PO SCH (05:43)
[2017-08-14] MEDS: Famotidine 20 MG TAB PO SCH ×2 (05:43→20:31)
[2017-08-14] MEDS: Metoprolol Tartrate 25 MG TAB PO SCH (05:43)
[2017-08-14] MEDS: FLUoxetine HCl 20 MG CAP PO SCH (05:43)
[2017-08-14] MEDS: Lisinopril 20 MG TAB PO SCH (05:44)
[2017-08-14] MEDS: Hydrochlorothiazide 25 MG TAB PO SCH (05:44)
[2017-08-14] MEDS: Aspirin 325 MG TAB PO SCH (05:44)
[2017-08-14] MEDS: hydrALAZINE 20 MG/ML VIAL SLOW IVP PRN (07:29)
--- NOTE | 2017-08-14 08:28 | PDOC.PN ---
- Subjective Encounter Start Date: 08/14/17 Encounter Start Time: 08:25 Subjective: Seen and examined with no new complaint - Objective Resuscitation Status: Resuscitation Status FULL:Full Resuscitation Vital Signs & Weight: Vital Signs (12 hours) Temp Pulse Resp BP BP Pulse Ox 08/14/17 07:52 97.9 F 77 20 96 08/14/17 07:29 77 201/121 H 08/14/17 07:27 97.9 F 77 20 201/121 H 96 08/14/17 04:00 97.7 F 88 20 155/92 H 96 08/14/17 01:31 96 08/13/17 23:48 97.4 F L 85 20 182/97 H 96 Weight Weight 260 lb 14.4 oz I&O: 08/13/17 08/14/17 08/15/17 06:59 06:59 06:59 Intake Total 1261 600 Output Total 700 1900 Balance 561 -1300 Result Diagrams: 08/13/17 04:07 08/13/17 04:07 Phys Exam - Physical Examination Constitutional: NAD HEENT: PERRLA, moist MMs, sclera anicteric, TM's clear, oral pharynx no lesions Neck: no nodes, no JVD, supple, full ROM Respiratory: no wheezing, no rales, no rhonchi, clear to auscultation bilateral Cardiovascular: no significant murmur, no rub, irregular Gastrointestinal: soft, non-tender, no distention, positive bowel sounds Musculoskeletal: no edema, pulses present Dx/Plan (1) New onset atrial fibrillation Code(s): I48.91 - UNSPECIFIED ATRIAL FIBRILLATION Status: Acute (2) CAD (coronary artery disease) Code(s): I25.10 - ATHSCL HEART DISEASE OF [place] CORONARY ARTERY W/O ANG PCTRS Status: Acute (3) Dyslipidemia Code(s): E78.5 - HYPERLIPIDEMIA, UNSPECIFIED Status: Chronic (4) Hypertension Code(s): I10 - ESSENTIAL (PRIMARY) HYPERTENSION Status: Chronic - Plan plan discussed w/ family, PT/OT, criminal justice social worker, respiratory therapy Appreciate cardiology input -: Cardiac cath planned for possibly today * .
[2017-08-14] MEDS ORDERED: Verapamil 5 MG/2 ML VIAL ONE (09:56)
[2017-08-14] MEDS ORDERED: Nitroglycerin 100MG/250ML BOT 250 ML ONE (09:56)
[2017-08-14] MEDS ORDERED: Heparin 10,000 UNITS/1 ML VIAL ONE (09:56)
[2017-08-14] MEDS ORDERED: Midazolam HCl 2 mg/2 ml Vial ONE (10:08)
[2017-08-14] MEDS ORDERED: Fentanyl 100 MCG/2 ML VIAL ONE (10:08)
[2017-08-14] MEDS ORDERED: Iopamidol 370 76% 100 ML VIAL ONE (11:16)
[2017-08-14] MEDS: traMADol HCl 50 MG TAB PO PRN (13:56)
[2017-08-14] MEDS ORDERED: Amlodipine 5 MG TAB PO SCH (15:30)
[2017-08-14] MEDS ORDERED: Lorazepam 2 MG/ML VIAL SLOW IVP PRN (15:50)
--- NOTE | 2017-08-14 17:10 | PRG ---
DATE OF SERVICE: 08/14/2017 SUBJECTIVE: Mr. Katz recently underwent a coronary angiography. He was found to have severe m ultivessel disease with complete extension to the right coronary artery and severe stenosis to the OM branch at the bifurcation. The LAD was free of significant disease. There have been issues for compliance of Mr. Katz. Blood pressure has been elevated. He state s he is now being taking his blood pressure medicines as he should in the past. At this point, given a 100% occlusion in the right coronary artery and stenosis within the OM at a bifurcation, I feel Mr Mercedes Katz should fail medical therapy prior to proceeding with any intervention. The only interve ntion that would be reasonable is proceeding with intervention to the OM branch with a potential for closing off one of the branches of the OM. From an atrial fibrillation standpoint, we would recommend Xarelto 20 mg 1 p.o. q.a.m. I discussed r isks and benefits with Mr. Katz. He agrees to proceed with taking the medication. From an ant i-anginal standpoint, it will be more important to control his blood pressure than treating with anti -anginal. Otherwise, I have no further recommendations.
[2017-08-14] MEDS ORDERED: Rivaroxaban 10 MG TAB PO SCH (18:00)
[2017-08-14] MEDS: Fenofibrate Nanocrystallized 145 MG TAB PO SCH (20:31)
[2017-08-14] MEDS: OLANZapine 5 MG TAB PO SCH (20:31)
[2017-08-14] MEDS: Carvedilol 6.25 MG TAB PO SCH (20:31)
[2017-08-14] MEDS: Zolpidem Tartrate 5 MG TAB PO PRN (20:32)
[2017-08-15 05:52] VITALS: BMI 40.6
[2017-08-15 08:10] VITALS: TEMP 97.9
[2017-08-15] MEDS: Lisinopril 20 MG TAB PO SCH (08:11)
[2017-08-15] MEDS: FLUoxetine HCl 20 MG CAP PO SCH (08:11)
[2017-08-15] MEDS: Carvedilol 6.25 MG TAB PO SCH (08:11)
[2017-08-15] MEDS: Aspirin 325 MG TAB PO SCH (08:11)
[2017-08-15] MEDS: Hydrochlorothiazide 25 MG TAB PO SCH (08:11)
[2017-08-15] MEDS: Famotidine 20 MG TAB PO SCH (08:11)
[2017-08-15] MEDS: Atorvastatin Calcium 20 MG TAB PO SCH (08:11)
[2017-08-15 08:18] VITALS: BP 159/98
[2017-08-15] MEDS ORDERED: Amlodipine 5 MG TAB PO SCH (09:00)
== END 2017-08-15 11:48 | disposition home or self-care (01) | DRG 287 ==
LOC: ERS 11:48 → 2NO 13:23
PROVIDERS: ADMIT Family Medicine; ATTEND Family Medicine
PROC: 4A023N7 Measurement of Cardiac Sampling and Pressure, Left Heart, Percutaneous Approach (ICD-10-PCS; principal; 2017-08-14)
PROC: B2111ZZ Fluoroscopy of Multiple Coronary Arteries using Low Osmolar Contrast (ICD-10-PCS; 2017-08-14)
PROC: B2151ZZ Fluoroscopy of Left Heart using Low Osmolar Contrast (ICD-10-PCS; 2017-08-14)
DX: I48.91 Unspecified atrial fibrillation (principal); I10 Essential (primary) hypertension; I25.10 Atherosclerotic heart disease of native coronary artery without angina pectoris; Z95.5 Presence of coronary angioplasty implant and graft; F41.8 Other specified anxiety disorders; F17.210 Nicotine dependence, cigarettes, uncomplicated; R73.9 Hyperglycemia, unspecified; K21.9 Gastro-esophageal reflux disease without esophagitis; N40.0 Benign prostatic hyperplasia without lower urinary tract symptoms; E78.1 Pure hyperglyceridemia
CPT/HCPCS: 36415; 71010; 76942; 80048; 80053; 80061; 80306; 82550; 82553; 83735; 83880; 84443; 84484; 85007; 85025; 85027; 93005; 93306; 93458; 94760; 96365; 96366; 99152; 99153; A4216; C1760; C1769; J0360; J1644; J1650; J2060; J2250; J3010; J7050

== ENCOUNTER 2017-10-14 08:01 | Outpatient (CLI) | payer MEDICARE, MEDICAID ==
--- NOTE | 2017-10-14 11:14 | MRI ---
MRI LUMBAR SPINE WITH AND WITHOUT CONTRAST: Technique: Multiplanar, multisequential imaging of the lumbar spine obtained. Post contrast images we re obtained with administration of 20 cc of MultiHance IV. History: Lumbar radiculopathy. History of prior surgical procedure, although type and site of procedu re is not specified. Comparison: MRI lumbar spine 10-27-14. FINDINGS: The lumbar vertebrae maintain height and alignment. Disc spaces are preserved. L1-2: Mild disc bulge is similar to the prior exam. L2-3: No significant disc bulge or protrusion. No central canal or foraminal stenosis. L3-4: No disc bulge or protrusion. Mild facet arthropathy and hypertrophy. No central canal or forami nal stenosis. L4-5: Mild diffuse disc bulge is similar to the prior study. Facet and ligamentous hypertrophy. Mild central canal stenosis. There is asymmetric bulge at this level into the right foramina which is similar to the prior study. This does produce right foraminal encroachment/stenosis and appears to displace the exiting right L4 nerve root. L5-S1: Post-operative changes are noted posteriorly. Evidence of mild residual disc bulge without pro trusion or herniation. Facet hypertrophy is prominent. No significant central canal stenosis. Bilater al foraminal stenosis is seen secondary to disc bulge and hypertrophic change. IMPRESSION: 1. Post-operative change at L5-S1 now noted. Bilateral foraminal stenosis at L5-S1. 2. Right foraminal encroachment/stenosis at L4-5 due to a lateral right disc/osteophyte with evidence of displacement of the exiting right L4 nerve root. POS: [facility]
--- NOTE | 2017-10-14 11:29 | RAD ---
LUMBAR SPINE SERIES FOUR VIEWS INCLUDING FLEXION AND EXTENSION: FINDINGS: Vertebral bodies maintain normal height. There are some degenerative osteophytes along the course of the spine. There is fairly pronounced disc narrowing at L5-S1. There appears to be a slight increase in the spondylolisthesis at L5 on S1 in flexion. There are marked degenerative facet changes. Pedicle s are intact. IMPRESSION: Degenerative changes and grade I spondylolisthesis of L5 on S1 with associated degenerative facet maddison nges. POS: [facility]
== END 2017-10-14 08:02 | disposition home or self-care (01) ==
LOC: MRI 08:01
PROVIDERS: ATTEND Surgery
DX: M47.26 Other spondylosis with radiculopathy, lumbar region (principal); M43.17 Spondylolisthesis, lumbosacral region
CPT/HCPCS: 72120; 72158

== ENCOUNTER 2017-11-21 07:24 | Day surgery (SDC) | payer MEDICARE, MEDICAID ==
[2017-11-20 09:03] VITALS: BMI 247.6
[2017-11-21] MEDS ORDERED: Fentanyl 100 MCG/2 ML VIAL ONE (10:44)
--- NOTE | 2017-11-21 12:41 | OP ---
DATE OF SERVICE: 11/21/2017 PREOPERATIVE DIAGNOSES: 1. Repetitive belching. 2. History of reflux. 3. Colorectal cancer screening. POSTOPERATIVE DIAGNOSES: 1. Esophagogastroduodenoscopy normal except for a small hiatal hernia with shallow Schatzki's ring, non-occluding. 2. One centimeter sigmoid colon polyp removed by snare polypectomy. 3. Diverticulosis coli. RECOMMENDATIONS: 1. Continue PPI. 2. Ultrasound of the gallbladder to make sure there is no gallstones causing recurrent chest pains. 3. Await histopathology on polyp. 4. Repeat colonoscopy in 3 years. ANESTHESIA: TIVA. PROCEDURE IN DETAIL: After the patient was informed of risks, benefits, possible complications of en doscopy including perforation, bleeding, reactions to medication and aspiration, informed consent was obtained. The patient was brought to the endoscopy suite where he was sedated in gradual fashion. Once he was comfortable, a bite block was placed in the incisural orifice. The endoscope was advance d into the esophagus, stomach, second and third portion of duodenum and slowly removed. The esophagu s was normal. No evidence of esophagitis. There was a very shallow Schatzki's ring in the distal es ophagus, there was a 1 cm hiatal hernia, sliding type. The stomach was normal in forward and retrofl exed views. The stomach had normal distensibility. There is no evidence of gastritis, ulcers or ero sions. The duodenum was normal to the third portion. The scope was slowly removed. The patient maurizio erated the procedure without any complications. The patient was turned in the room and rectal exam performed was normal. The endoscope was advanced in the anal canal through the colon to cecum which was identified by the ileocecal valve and appendic eal orifice. The scope was slowly withdrawn. Withdrawal time was about 10 minutes of the colon was redundant and there was a lot of diverticulosis throughout the colon. In the sigmoid colon, a 1 cm p edunculated polyp was encountered about 20 centimeters and this was removed by hot snare polypectomy. There was good hemostasis. The polyp was retrieved and sent to pathology. Retroflexed views in th e rectum were normal. The scope was removed. The patient tolerated the procedure with no complicati ons.
[2017-11-21] MEDS ORDERED: Lidocaine 1% PF 5 ML VIAL ONE (14:59)
[2017-11-21] MEDS ORDERED: PROPOFOL 200 MG/20 ML VIAL ONE (14:59)
== END 2017-11-21 12:26 | disposition home or self-care (01) ==
LOC: SDC 07:24
PROVIDERS: ATTEND Internal Medicine Gastroenterology
PROC: 0DBN8ZX Excision of Sigmoid Colon, Via Natural or Artificial Opening Endoscopic, Diagnostic (ICD-10-PCS; principal; 2017-11-21)
PROC: 0DJ08ZZ Inspection of Upper Intestinal Tract, Via Natural or Artificial Opening Endoscopic (ICD-10-PCS; 2017-11-21)
DX: Z12.11 Encounter for screening for malignant neoplasm of colon (principal); D12.5 Benign neoplasm of sigmoid colon; K21.9 Gastro-esophageal reflux disease without esophagitis; K57.30 Diverticulosis of large intestine without perforation or abscess without bleeding; K22.2 Esophageal obstruction; K44.9 Diaphragmatic hernia without obstruction or gangrene; I10 Essential (primary) hypertension; I25.10 Atherosclerotic heart disease of native coronary artery without angina pectoris; E78.5 Hyperlipidemia, unspecified; N40.0 Benign prostatic hyperplasia without lower urinary tract symptoms; I48.0 Paroxysmal atrial fibrillation; F41.9 Anxiety disorder, unspecified; F32.9 Major depressive disorder, single episode, unspecified; F17.210 Nicotine dependence, cigarettes, uncomplicated; Z79.899 Other long term (current) drug therapy; Z95.5 Presence of coronary angioplasty implant and graft; Z98.890 Other specified postprocedural states
CPT/HCPCS: 88305; J2001; J2704; J3010

== ENCOUNTER 2017-12-01 12:51 | Outpatient (CLI) | payer MEDICARE, OTHER ==
--- NOTE | 2017-12-01 15:18 | RAD ---
3 VIEWS CERVICAL SPINE: Date: 12/01/17 INDICATION: History of follow-up neck surgery. COMPARISON: Prior exam dated 01/12/15. FINDINGS: Since the comparison examination dated 01/12/15, there has been interval performance of an ACDF octavia ing C3 through C5. The mid to anterior margin of the intervertebral disc cage at C3-4 projects beyond the anterior margin of the C3-4 intervertebral space. There is also lucency surrounding the single A CDF screw at C3. If there is any intervening comparison examination, comparison to priors may be help ful to evaluate for loosening. There is very slight retrolisthesis of C3 on C4, which is new from the prior exam. There is advanced disc degenerative disease at C7. There is straightening of the normal cervical lordosis. Lateral masses are symmetric. IMPRESSION: 1. ACDF at C3 through C5. 2. There is some lucency surrounding the ACDF screw at C3. Recommend continued follow-up for looseni ng. The intervertebral disc cage projects slightly anterior to the C3-C4 intervertebral space which m ay reflect displacement. Comparison with any interval radiographs may be helpful to document stabilit y. 3. Advanced disc degenerative disease at C6-C7. POS: [facility]
== END 2017-12-01 12:52 | disposition home or self-care (01) ==
LOC: TBSIIMAG 12:51
PROVIDERS: ATTEND Surgery
DX: M48.02 Spinal stenosis, cervical region (principal); M47.892 Other spondylosis, cervical region; Z98.1 Arthrodesis status
CPT/HCPCS: 72040

== ENCOUNTER 2017-12-03 08:15 | Outpatient (CLI) | payer MEDICARE, MEDICAID | END 2017-12-03 08:16 | disposition home or self-care (01) | LOC: BICULT 08:15 | PROVIDERS: ATTEND Internal Medicine Gastroenterology | DX: K44.9 Diaphragmatic hernia without obstruction or gangrene (principal); K76.0 Fatty (change of) liver, not elsewhere classified | CPT/HCPCS: 76705 ==

== ENCOUNTER 2017-12-29 09:23 | Emergency (ER) | payer MEDICARE, MEDICAID ==
[2017-12-29 09:46] LABS: #Eosinphils 0.2 thou/uL (0.0-0.7); #Lymphocytes 2.1 thou/uL (1.20-3.40); #Monocytes 0.5 thou/uL (0.11-0.59); #Neutrophils 1.9 thou/uL (1.40-6.50); %Basophils 0.4 % (0.0-1.0); %Eosinophils 3.4 % (0.0-10.0); %Lymphocytes 46.2 % (21.0-51.0); %Monocytes 9.9 % (0.0-10.0); %Neutrophils 40.2 % (42.0-75.0); Hemoglobin 12.8 g/dL (14.0-18.0); Mean Corpuscular HGB CONC 34.2 g/dL (32.0-36.0); Mean Corpuscular Hemoglobin 34.4 pg (27.0-31.0); Mean Platelet Volume 7.3 fL (7.4-10.4); Platelet Count 275 thou/uL (130-400); Red Blood Cell (RBC) Count 3.73 mill/uL (4.70-6.10); White Blood Cell (WBC) Count 4.6 thou/uL (4.8-10.8)
[2017-12-29] MEDS ORDERED: Morphine 4 MG/ML VIAL ONE (09:51)
[2017-12-29 10:11] LABS: ALT (SGPT) 39 U/L (8-55); AST (SGOT) 43 U/L (5-34); Albumin 4.6 g/dL (3.4-4.8); Alkaline Phosphatase 76 U/L (40-150); Anion Gap 13 mmol/L (10-20); BUN (Urea Nitrogen) 16 mg/dL (8.4-25.7); Bilirubin, Total 0.4 mg/dL (0.2-1.2); Calc. Creatinine Clearance 0 mL/min (70-130); Carbon Dioxide 24 mmol/L (23-31); Chloride 107 mmol/L (98-107); Estimated GFR-MDRD 77; Globulin 3.5 g/dL (2.4-3.5); Glucose 104 mg/dL (80-115); Potassium 3.9 mmol/L (3.5-5.1); Protein, Total 8.1 g/dL (5.8-8.1); Sodium 140 mmol/L (136-145)
--- NOTE | 2017-12-29 10:11 | RAD ---
SINGLE VIEW OF THE CHEST: Comparison: 08-12-17 History: Chest pain for two days. FINDINGS: Single view of the chest shows a normal sized cardiomediastinal silhouette with atherosclerotic calci fications in the aorta. There is no evidence of consolidation, mass, or pleural effusion. Degenerativ e changes are seen in the spine. IMPRESSION: 1. No evidence of acute cardiopulmonary disease. 2. Atherosclerotic disease. POS: [facility]
[2017-12-29 10:20] LABS: CKMB 5.2 ng/mL (0-6.6); Troponin I Less than 0.010 ng/mL (< 0.028)
[2017-12-29] MEDS ORDERED: Lidocaine Viscous Sol 2% 15 ml UD Cup ONE (10:21)
[2017-12-29] MEDS ORDERED: Mag-Al 1200 mg/1200 mg/30 ML UDCUP ONE (10:22)
== END 2017-12-29 11:42 | disposition home or self-care (01) ==
LOC: ERS 09:23
DX: R07.9 Chest pain, unspecified (principal); I25.10 Atherosclerotic heart disease of native coronary artery without angina pectoris; I25.2 Old myocardial infarction; E78.5 Hyperlipidemia, unspecified; I10 Essential (primary) hypertension; G89.29 Other chronic pain; K21.9 Gastro-esophageal reflux disease without esophagitis; F31.9 Bipolar disorder, unspecified; F41.9 Anxiety disorder, unspecified; F17.210 Nicotine dependence, cigarettes, uncomplicated; Z79.899 Other long term (current) drug therapy
CPT/HCPCS: 71045; 80053; 82553; 84484; 85025; 93005; 96374; J2270

== ENCOUNTER 2018-01-10 01:34 | Emergency (ER) | payer MEDICARE, MEDICAID ==
[2018-01-10] MEDS ORDERED: Ketorolac Tromethamine 60 MG/2 ML VIAL ONE (02:07)
[2018-01-10] MEDS ORDERED: Colchicine 0.6 MG TAB PO SCH ×2 (02:15)
[2018-01-10] MEDS ORDERED: Colchicine 0.6 MG TAB ONE ×2 (02:21→02:24)
== END 2018-01-10 02:25 | disposition home or self-care (01) ==
LOC: ERS 01:34
DX: M10.9 Gout, unspecified (principal); I25.10 Atherosclerotic heart disease of native coronary artery without angina pectoris; I25.2 Old myocardial infarction; K21.9 Gastro-esophageal reflux disease without esophagitis; E78.5 Hyperlipidemia, unspecified; I10 Essential (primary) hypertension; F41.9 Anxiety disorder, unspecified; F31.9 Bipolar disorder, unspecified; F17.210 Nicotine dependence, cigarettes, uncomplicated; Z79.01 Long term (current) use of anticoagulants; Z71.6 Tobacco abuse counseling; Z79.899 Other long term (current) drug therapy
CPT/HCPCS: 96372; 99406; J1885

== ENCOUNTER 2018-03-04 13:27 | Outpatient (CLI) | payer MEDICARE, MEDICAID ==
--- NOTE | 2018-03-04 14:37 | RAD ---
CERVICAL SPINE FOUR VIEWS: INDICATIONS: Neck pain. History of surgery. COMPARISON: 12/01/2017 FINDINGS: The ACDF plate spanning C3 through C5 does not appear appreciably changed in position. The anteriorl y displaced intervertebral disk cage at C3-C4 is unchanged. Positioning of the C4-C5 intervertebral cage is unchanged. There is moderate multilevel spondylosis. Spinal alignment is preserved. The la teral masses are symmetric. The lung apices are clear. IMPRESSION: Stable postoperative cervical spine with multilevel spondylosis. POS: [facility]
== END 2018-03-04 13:28 | disposition home or self-care (01) ==
LOC: TBSIIMAG 13:27
PROVIDERS: ATTEND Surgery
DX: M54.2 Cervicalgia (principal); M47.892 Other spondylosis, cervical region; Z98.1 Arthrodesis status
CPT/HCPCS: 72040

== ENCOUNTER → 2018-03-30 | Day surgery (SDC) | payer MEDICARE, MEDICAID ==
[2018-03-27 11:52] VITALS: BMI 39.5
[2018-03-30 08:46] LABS: PTT 37.3 SEC (22.9-36.1); Prothrombin Time 13.2 SEC (12.0-14.7)
[2018-03-30 08:56] LABS: #Eosinphils 0.2 thou/uL (0.0-0.7); #Lymphocytes 2.1 thou/uL (1.20-3.40); #Monocytes 0.3 thou/uL (0.11-0.59); #Neutrophils 2.4 thou/uL (1.40-6.50); %Basophils 0.8 % (0.0-1.0); %Eosinophils 3.3 % (0.0-10.0); %Lymphocytes 41.1 % (21.0-51.0); %Monocytes 6.9 % (0.0-10.0); %Neutrophils 47.9 % (42.0-75.0); Bilirubin Negative (Negative); Blood, Urine Negative (Negative); Clarity CLEAR (Clear); Glucose, Urine (Dipstick) Negative (Negative); Hemoglobin 12.6 g/dL (14.0-18.0); Leukocyte Moderate (Negative); Mean Corpuscular HGB CONC 34.8 g/dL (32.0-36.0); Mean Corpuscular Hemoglobin 35.2 pg (27.0-31.0); Mean Platelet Volume 6.8 fL (7.4-10.4); Nitrite Negative (Negative); Platelet Count 246 thou/uL (130-400); Protein, Urine (Dipstick) Negative (Neg-Trace); RBC Distribution Width 13.6 % (11.5-14.5); Red Blood Cell (RBC) Count 3.59 mill/uL (4.70-6.10); Specific Gravity, Urine 1.014 (1.002-1.036); Urobilinogen 0.2 mg/dL (0.2-1.0); pH, Urine 5.5 (5.0-9.0)
[2018-03-30 08:59] LABS: Bacteria/HPF None Seen HPF (None Seen); Hyaline Casts/LPF 0-3 HYALINE CAST LPF (0-3 Hyaline); Pathc Cast-AUWi Flag 0.14 (0-2.49); RBC/HPF 0-3 HPF (0-3); Squamous Epithelial 0-3 HPF (0-3)
--- NOTE | 2018-03-30 17:05 | CT ---
CT GUIDED SUPRAPUBIC CATHETER PLACEMENT: HISTORY: Urethral stricture. Urinary retention. CONSCIOUS SEDATION: Versed 1 mg IV. Fentanyl 50 mcg IV. Two doses were given. PROCEDURE: After explaining the procedure and answering all questions, limited CT imaging was performed. A supr apubic anterior approach was planned. Sterile technique, buffered local anesthesia, conscious sedati on, CT guidance, and an anterior midline suprapubic approach were used to carefully advance a 22 gaug e needle into the urinary bladder, to instill a total volume of 240 mL of sterile saline, to further distend the urinary bladder. The needle was removed. A skin donald was then made with careful subcuta neous dissection with sterile hemostats toward the anterior bladder wall. Using the trocar technique, a 14 [place] Coon catheter was instilled into the urinary bladder. The b alloon was inflated with sterile water. Clear-yellow urine was aspirated, and 60 mL was sent to [facility] obiology for evaluation. The catheter was secured externally with 2-0 Ethilon sutures and left drain ing to gravity. The patient tolerated the procedure well and was dismissed in good condition. IMPRESSION: Technically successful CT guided suprapubic catheter placement. POS: [facility]
--- NOTE | 2018-03-31 10:34 | CT ---
CT GUIDED SUPRAPUBIC CATHETER PLACEMENT: HISTORY: Urethral stricture. Urinary retention. CONSCIOUS SEDATION: Versed 1 mg IV. Fentanyl 50 mcg IV. Two doses were given. PROCEDURE: After explaining the procedure and answering all questions, limited CT imaging was performed. A supr apubic anterior approach was planned. Sterile technique, buffered local anesthesia, conscious sedati on, CT guidance, and an anterior midline suprapubic approach were used to carefully advance a 22 gaug e needle into the urinary bladder, to instill a total volume of 240 mL of sterile saline, to further distend the urinary bladder. The needle was removed. A skin donald was then made with careful subcuta neous dissection with sterile hemostats toward the anterior bladder wall. Using the trocar technique, a 14 [place] Coon catheter was instilled into the urinary bladder. The b alloon was inflated with sterile water. Clear-yellow urine was aspirated, and 60 mL was sent to [facility]iology for evaluation. The catheter was secured externally with 2-0 Ethilon sutures and left drain ing to gravity. The patient tolerated the procedure well and was dismissed in good condition. IMPRESSION: Technically successful CT guided suprapubic catheter placement.
== END ==
LOC: CT 08:13
PROVIDERS: ATTEND Urology
PROC: 0T9B30Z Drainage of Bladder with Drainage Device, Percutaneous Approach (ICD-10-PCS; principal; 2018-03-30)
DX: N99.111 Postprocedural bulbous urethral stricture, male (principal); R33.9 Retention of urine, unspecified; I10 Essential (primary) hypertension; I48.91 Unspecified atrial fibrillation; F17.210 Nicotine dependence, cigarettes, uncomplicated; Z79.82 Long term (current) use of aspirin; Z79.52 Long term (current) use of systemic steroids; Z79.01 Long term (current) use of anticoagulants; Z79.899 Other long term (current) drug therapy; Z95.5 Presence of coronary angioplasty implant and graft
CPT/HCPCS: 51102; 77002; 81001; 85025; 85610; 85730; 87086; C2627; 36415; 99152; 99153

== ENCOUNTER 2018-04-15 10:08 | Outpatient (CLI) | payer MEDICARE, MEDICAID ==
[2018-04-15 12:23] LABS: Hemoglobin 12.7 g/dL (14.0-18.0); Mean Corpuscular HGB CONC 34.8 g/dL (32.0-36.0); Mean Corpuscular Hemoglobin 34.9 pg (27.0-31.0); Platelet Count 318 thou/uL (130-400); RBC Distribution Width 12.8 % (11.5-14.5); Red Blood Cell (RBC) Count 3.64 mill/uL (4.70-6.10); White Blood Cell (WBC) Count 5.6 thou/uL (4.8-10.8)
[2018-04-15 12:30] LABS: INR-International Normal Ratio 2.1; PTT 56.1 SEC (22.9-36.1); Prothrombin Time 23.2 SEC (12.0-14.7)
[2018-04-15 12:36] LABS: Bilirubin Negative (Negative); Blood, Urine Small (Negative); Clarity CLOUDY (Clear); Glucose, Urine (Dipstick) Negative (Negative); Leukocyte Large (Negative); Nitrite Positive (Negative); Protein, Urine (Dipstick) Trace mg/dL (Neg-Trace); Specific Gravity, Urine 1.019 (1.002-1.036); Urobilinogen 0.2 mg/dL (0.2-1.0)
[2018-04-15 12:39] LABS: Bacteria/HPF None Seen HPF (None Seen); Pathc Cast-AUWi Flag 0.72 (0-2.49); RBC/HPF 21-50 HPF (0-3); Squamous Epithelial None Seen HPF (0-3)
[2018-04-15 12:42] LABS: Anion Gap 16 mmol/L (10-20); BUN (Urea Nitrogen) 18 mg/dL (8.4-25.7); Calc. Creatinine Clearance 0 mL/min (70-130); Calcium 9.5 mg/dL (7.8-10.44); Carbon Dioxide 19 mmol/L (23-31); Chloride 108 mmol/L (98-107); Estimated GFR-MDRD 70; Glucose 102 mg/dL (80-115); Potassium 4.2 mmol/L (3.5-5.1); Sodium 139 mmol/L (136-145)
[2018-04-15 13:15] LABS: Hyaline Casts/LPF 0-3 HYALINE CAST LPF (0-3 Hyaline)
--- NOTE | 2018-04-17 15:07 | EKG ---
Test Reason : Blood Pressure : / mmHG Vent. Rate : 065 BPM Atrial Rate : 065 BPM P-R Int : 188 ms QRS Dur : 098 ms QT Int : 400 ms P-R-T Axes : 053 045 056 degrees QTc Int : 416 ms Normal sinus rhythm Anterior infarct , age undetermined Abnormal ECG When compared with ECG of 29-DEC-2017 09:29, Anterior infarct is now Present Nonspecific T wave abnormality, improved in Lateral leads Confirmed by NGUYỄN CRENSHAW MD ([id number]) on 04/17/2018 3:07:30 PM Referred By: ZA Confirmed By:NGUYỄN CRENSHAW MD
== END 2018-04-15 10:09 | disposition home or self-care (01) ==
LOC: LABBT 10:08
PROVIDERS: ATTEND Urology
DX: Z01.818 Encounter for other preprocedural examination (principal); N35.9 Urethral stricture, unspecified
CPT/HCPCS: 80048; 81001; 85027; 85610; 85730; 87077; 87086; 87186; 93005; 93010

== ENCOUNTER 2018-04-23 08:49 | Day surgery (SDC) | payer MEDICARE, MEDICAID ==
[2018-04-15 10:29] VITALS: BMI 40.4
[2018-04-23 11:19] LABS: INR-International Normal Ratio 1.1; PTT 35.9 SEC (22.9-36.1)
[2018-04-23] MEDS ORDERED: Levofloxacin 500 mg/D5W 100 ml Premix Bag ONE (11:28)
[2018-04-23] MEDS ORDERED: Iothalamate Meglumine 60% 50 ML VIAL FS ONE (12:38)
[2018-04-23] MEDS ORDERED: Fentanyl 100 MCG/2 ML VIAL ONE (12:42)
[2018-04-23] MEDS ORDERED: Ondansetron HCl/PF 4 MG/2 ML Vial ONE (14:46)
[2018-04-23] MEDS ORDERED: hydrALAZINE 20 MG/ML VIAL ONE (15:35)
[2018-04-23] MEDS ORDERED: HYDROcodone/Acetaminophen 5/325 mg Tablet ONE ×3 (16:17→16:52)
--- NOTE | 2018-04-23 16:48 | OP ---
DATE OF PROCEDURE: 04/23/2018 SERVICE: Urology. SURGEON: Dr. Rios Sanchez. PREOPERATIVE DIAGNOSIS: Bulbar urethral stricture. POSTOPERATIVE DIAGNOSIS: Bulbar urethral stricture. PROCEDURE PERFORMED: Cystoscopy antegrade and retrograde, SP tube change, perineal ultrasound and re trograde urethrogram. INDICATIONS FOR PROCEDURE: Mr. Katz is a 63-year-old black male with a bulbar urethral strictu re which has been treated with multiple endoscopic procedures. It is always recurred and we are now considering urethroplasty for definitive. Risks and benefits have been discussed and we have agreed to proceed. DESCRIPTION OF PROCEDURE: After identification of arm and verification of consent, the patient was b rought back to the operating room where he underwent general anesthesia with an LMA. He was then andrés wei in dorsal lithotomy position, prepped and draped in usual sterile fashion. After appropriate sonia eout, a rigid cystoscope was placed through the urethra to the level of the stricture. The stricture was noted to be in the bulbar urethra and was fairly narrow. The cystoscope was then removed and a flexible cystoscope was brought in through the SP tube tract. After the SP tube was removed, the nam dder appeared normal without any calculi or any significant findings. The prostate was not very obst ructive. Antegrade cystoscopy was performed and the membranous urethra was found to be normal. The stricture began approximately 2 cm distal to the urethral sphincter. The flexible cystoscope was the n removed and an 18-[place] SP tube was placed into the bladder with 10 mL of sterile water in the bal loon. A perineal ultrasound was performed with saline enhancement which demonstrated that the majori ty of the fibrosis was on the dorsal aspect of the urethra. The ventral aspect actually looks quite healthy. The stricture length was not well characterized on ultrasound. After that the patient was taken out of lithotomy and put in a modified oblique position. A catheter was inserted just at the f corey navicularis and a retrograde urethrogram performed which demonstrated an approximately 3 cm uret hral stricture with a very small caliber lumen, but continuity was patent all the way up to the bladd er. Satisfied with the staging for procedure, the patient then had his SP tube hooked up to gravity drainage, was awakened and taken to PACU for recovery in stable condition. COMPLICATIONS: None. ESTIMATED BLOOD LOSS: Minimal. RETAINED TUBES AND DRAINS: An 18-[place] Island[place] SP tube to gravity drainage. SPECIMENS: None. DISPOSITION: The patient will be discharged home and follow up with me in approximately 2 weeks to emily roach his definitive urethroplasty.
--- NOTE | 2018-04-23 17:00 | RAD ---
FLUOROSCOPIC GUIDANCE FOR RETROGRADE URETHROGRAM 04/23/18 FINDINGS/IMPRESSION: Fluoroscopic guidance was provided for Dr. Sanchez for retrograde urethrogram. A single provided obli que image is present. Image does demonstrate narrowing in the expected location of the bulbous urethr a, and there is a filling defect seen within the proximal penile urethra. No additional images were o btained. Correlation with intraoperative findings is recommended. Total fluoroscopy time is 13.3 seco nd with total dose of 5.88 mGy. POS: [facility]
== END 2018-04-23 17:15 | disposition home or self-care (01) ==
LOC: SDC 08:49
PROVIDERS: ATTEND Urology
PROC: 0T2BX0Z Change Drainage Device in Bladder, External Approach (ICD-10-PCS; principal; 2018-04-23)
DX: N99.111 Postprocedural bulbous urethral stricture, male (principal); I48.91 Unspecified atrial fibrillation; R31.29 Other microscopic hematuria; F17.210 Nicotine dependence, cigarettes, uncomplicated; I11.9 Hypertensive heart disease without heart failure; Z79.82 Long term (current) use of aspirin; Z79.01 Long term (current) use of anticoagulants; Z79.52 Long term (current) use of systemic steroids; Z79.899 Other long term (current) drug therapy; Z95.5 Presence of coronary angioplasty implant and graft; Z98.890 Other specified postprocedural states
CPT/HCPCS: 36415; 74420; 85610; 85730; 96374; J0360; J1956; J2405; J3010; Q9961

== ENCOUNTER 2018-06-15 09:30 | Inpatient (IN) | payer MEDICARE, MEDICAID ==
[2018-06-15 10:04] VITALS: BMI 39.5
[2018-06-24] MEDS ORDERED: Fentanyl 250 MCG/5 ML VIAL ONE (06:27)
[2018-06-24] MEDS ORDERED: Bupivacaine 0.25% HCL 30 ML VIAL ONE (06:46)
[2018-06-24] MEDS ORDERED: Lidocaine 1% w/Epinephrine 1:100K 30 ML VIAL ONE (06:46)
[2018-06-24] MEDS ORDERED: Bacitracin Zinc Ointment 30 gm TUBE ONE (06:47)
[2018-06-24] MEDS ORDERED: cefTRIAXone\\ROCEPHIN 1 GM VIAL ONE (06:51)
[2018-06-24] MEDS ORDERED: Sodium Chloride 0.9% 100 ML ONE (06:51)
[2018-06-24] MEDS ORDERED: CEFAZOLIN 2 GM/50 ML BAG ONE (06:51)
[2018-06-24] MEDS ORDERED: Bupivacaine/Epinephrine 0.25% 30 ML VIAL ONE (07:44)
[2018-06-24] MEDS ORDERED: Neomycin-Polymyxin 1 ML AMP ONE (07:49)
[2018-06-24] MEDS ORDERED: Promethazine HCl 25 MG/ML VIAL SLOW IVP PRN (09:52)
[2018-06-24] MEDS ORDERED: Ondansetron HCl/PF 4 MG/2 ML Vial IVP PRN (09:52)
[2018-06-24] MEDS ORDERED: Promethazine HCl 25 MG/ML VIAL IM PRN (09:52)
[2018-06-24] MEDS ORDERED: Rocuronium Bromide 50 MG/5 ML VIAL ONE (10:09)
--- NOTE | 2018-06-24 10:43 | OP ---
DATE OF PROCEDURE: 06/24/2018 SURGEON: Dr. Lul Jacobo PREOPERATIVE DIAGNOSIS: Penile bulbar large urethral stricture. POSTOPERATIVE DIAGNOSIS: Penile bulbar large urethral stricture. PROCEDURE PERFORMED: Buccal mucosal graft harvest measuring 1.5 cm x 5 cm with complex mucosal adva ncement graft closure. PROCEDURE IN DETAIL: The patient was identified, brought to the operating room and placed on the tab le in supine position. General endotracheal anesthesia was obtained. Exposure was obtained with a C reyes-Jacobo mouth gag. The cheek retraction occurred with an [place] retractors and the area of int ended surgery was infiltrated with 0.25% Marcaine 1:100,000 epinephrine. We then with a marking pen carefully delineated where the graft would be harvested from with care not to injure any of the saliv kelin ducts. A Bovie electrocautery was used to incise the mucosa and sharp scissors were used to diss ect the mucosal graft without injury to underlying buccinator muscle. The graft was then placed in s aixa once harvested and hemostasis was obtained with a bipolar cautery. We then undermined the muco sa superiorly and inferiorly and advanced and created some relaxing incisions that allowed for primar y closure of the mucosa in 2 layers with the submucosal tissues being reapproximated with Monocryl an d the skin with chromic. A running suture was made as well as some interrupted quilting sutures to t nguyen the pressure off the wound. The patient was then transferred to Dr. Sanchez's care for continuat ion of the urologic procedure.
[2018-06-24] MEDS ORDERED: Dexamethasone 20 MG/5 ML VIAL ONE (11:26)
[2018-06-24] MEDS ORDERED: PHENYLEPHRINE-NS 100 MCG/ML 10 ML SYRINGE ONE (11:26)
[2018-06-24] MEDS ORDERED: PROPOFOL 200 MG/20 ML VIAL ONE (11:26)
[2018-06-24] MEDS ORDERED: Ondansetron PF 4 MG/2 ML Vial ONE ×2 (11:26→12:21)
[2018-06-24] MEDS ORDERED: Glycopyrrolate 0.2 MG/ML 5 ML SYRINGE ONE ×2 (11:26)
[2018-06-24] MEDS ORDERED: ePHEDrine/0.9% NaCl/PF SYRINGE 50 mg/10 ml ONE (11:26)
[2018-06-24] MEDS ORDERED: Calcium Chloride 1 GM/10 ML Abboject SYRINGE ONE (11:26)
[2018-06-24] MEDS ORDERED: Fentanyl 100 MCG/2 ML VIAL ONE (11:35)
[2018-06-24] MEDS ORDERED: Promethazine HCl 25 MG/ML VIAL ONE (11:36)
--- NOTE | 2018-06-24 12:06 | OP ---
DATE OF OPERATION: 06/24/2018 SERVICE: Urology. SURGEON: Rios Sanchez M.D. COMPENSATION VICE PRESIDENT: Fatimah Romero D.O. PREOPERATIVE DIAGNOSIS: Bulbar urethral stricture. POSTOPERATIVE DIAGNOSIS: Bulbar urethral stricture. PROCEDURE PERFORMED: Ventral onlay buccal mucosal graft augmentation urethroplasty. INDICATIONS FOR PROCEDURE: Mr. Katz is a 63-year-old black male with a dense bulbar urethral stricture. He has undergone approximately 11 DVIU and endoscopic dilation procedures without success with previous urologist. Upon consultation with me, I recommended no further endoscopic procedure but rather correction of his stricture with urethroplasty. Risks and benefits of the surgery were discussed and he has agreed to proceed forward. DESCRIPTION OF PROCEDURE: After identification of arm and verification of consent, the patient was brought back to the operating room and he underwent general anesthesia with endotracheal intubation. He was then left in the supine position and Dr. Amado performed his portion of the surgery, harvest of the buccal mucosal graft (please see his operative note for details). After Dr. Amado completed his portion of the surgery, the patient was repositioned in the dorsal lithotomy position and prepped and draped in sterile fashion. After appropriate timeout, the SP tube was removed and antegrade cystoscopy performed with the flexible cystoscope. A guidewire was placed through the prostatic urethra through the stricture and out through the penile urethra and brought out for continuity of the urethra. His scrotum was then affixed to his inguinal area for retraction. An incision was made on the median raphe underneath the scrotum to just above the anus. Dissection was carried down with Bovie electrocautery until the fatty tissues were encountered. The [place] retractor was then used to hold the tissues open and dissection was carried down to the bulbar urethral muscles. The muscles were extremely fibrotic and adherent to the urethra, likely from previous endoscopic procedures with fibrosis and scarring. The tissues lateral to the urethra could be partially dissected. The tissues were dissected off the urethra starting at the distal aspect of the bulbar urethra and dissecting proximally. We were able to get the majority of the bulbourethral muscle but unfortunately bulbar urethral muscle becomes significantly damaged during this process due to the significant amount of fibrosis and poor dissection plane between the urethra and the muscle; however, the urethral integrity was able to be kept intact. After an adequate amount of urethra was mobilized and exposed, the antegrade and retrograde cystoscopies were performed to the apices of the strictures which were marked using the camera and the light source with a suture on the adventitial side of the urethral lumen. The graft was then prepared and trimmed to the appropriate length to match the stricture or incision length that was going to be made through the strictured portion of the urethra. The graft was defatted on the muscular side until all the tissues underneath could be visualized, it was then soaked in antibiotic irrigation and stay sutures with a 4-0 Vicryls were placed through each apex. Using the catheter as a guide to open the urethra, the urethra was opened using a 15 blade until the catheter could be passed through. Then using Mack scissors with DeBakeys to gently tent open the urethral lumen, the Mack scissors were used to incise the ventral aspect of the urethra all the way down from one stay suture to the other until the urethra was completely open. The guidewire could be seen and a cystoscopy was again performed retrograde and antegrade to ensure that all structures were divided. No additional strictures were noted. At this point, the graft was sewn in to the defect approximating to the mucosa of the graft to the urethral mucosal lumen using interrupted 4-0 Vicryl. These were left on mosquito snaps until all of them had been placed to allow for adequate visualization. Once this all the sutures had been placed, a 16-Spanish [place]-tip catheter was advanced over the guidewire back into the lumen of the bladder which went very easily without any difficulty. The sutures were all then tied down. The corpora spongiosum was then closed taking the lateral edges of the spongiosum and a single stitch through the center of the graft for backing to close the corpora spongiosum with interrupted 3-0 Vicryls. After this was then completely approximated, Tisseel was sprayed over the surface of the closure. The bulbar urethral muscles were then approximated in the best possible fashion to recreate a regular anatomic arrangement of the muscles, although they were fairly significantly damaged. The remainder of the Tisseel were then put in over the muscle and surrounding tissues. The deeper tissues were then closed with a 2-0 Vicryl in a running fashion. The dermis and dartos fascia was closed with a 2-0 Vicryl in a running fashion and the skin closed with 4-0 Monocryl in a baseball stitch fashion. The wound was irrigated prior to closure with antibiotic irrigation before the Tisseel was applied. A [place] drain was also placed before closure into the space just outside the bulbourethral muscles in the fatty tissues and left to the outside as a quarter- inch Kevin drain which was anchored with a 3-0 nylon. Dermabond was applied on the incision line and once completed, the Coon catheter and SP tube was connected to gravity drainage. There were 10 mL of sterile water placed into each balloon and irrigated easily without any difficulty. The patient was then taken out of positioning. Scrotal fluffs applied to his perineal area once the Dermabond was dry patient had a jock strap placed. He was then awakened and taken to PACU for recovery in stable condition. COMPLICATIONS: None. ESTIMATED BLOOD LOSS: 100 mL RETAINED TUBES OR DRAINS: A 16 Spanish SP tube, a 16 Spanish Coon catheter and a quarter inch Kevin drain. SPECIMENS: None. DISPOSITION: The patient will be kept in the hospital overnight for monitoring. We will plan to remove his Kevin drain tomorrow so long as there is minimal output. He will then keep his catheter in for approximately 1-2 weeks at which point we will perform an antegrade VCUG to evaluate for leak. Further follow up will be handled on an outpatient basis. PANCHITO
[2018-06-24] MEDS ORDERED: Mag-Al 1200 mg/1200 mg/30 ML UDCUP PO PRN (13:34)
[2018-06-24] MEDS ORDERED: HYDROcodone/Acetaminophen 5/325 mg Tablet PO PRN (13:34)
[2018-06-24] MEDS ORDERED: Ondansetron PF 4 MG/2 ML Vial IVP PRN (13:34)
[2018-06-24] MEDS ORDERED: diphenhydrAMINE 25 MG CAP PO PRN (13:34)
[2018-06-24] MEDS ORDERED: hydrALAZINE 20 MG/ML VIAL SLOW IVP PRN (13:34)
[2018-06-24] MEDS ORDERED: CEFAZOLIN 1 GM in Sodium Chloride 0.9% 100 ML IVPB SCH (14:00)
[2018-06-24] MEDS ORDERED: Morphine 4 MG/ML VIAL IV PRN (14:15)
[2018-06-24] MEDS: Morphine 4 MG/ML VIAL IV PRN ×2 (14:21→20:15)
[2018-06-24] MEDS: Chlorhexidine Gluconate 15 ML UDCUP SSP SCH ×2 (16:22→16:44)
[2018-06-24] MEDS: Oxybutynin 5 MG TAB PO SCH ×2 (16:23→22:36)
[2018-06-24] MEDS: Docusate 100 MG CAP PO SCH (20:14)
[2018-06-24] MEDS: HYDROcodone/Acetaminophen 5/325 mg Tablet PO PRN (22:26)
[2018-06-24] MEDS ORDERED: Chlorhexidine Gluconate 15 ML UDCUP SSP SCH (22:30)
[2018-06-25] MEDS: HYDROcodone/Acetaminophen 5/325 mg Tablet PO PRN ×2 (03:34→16:56)
[2018-06-25 05:32] LABS: #Lymphocytes 1.6 thou/uL (1.20-3.40); #Monocytes 0.7 thou/uL (0.11-0.59); #Neutrophils 9.7 thou/uL (1.40-6.50); %Basophils 0.2 % (0.0-1.0); %Eosinophils 0.2 % (0.0-10.0); %Lymphocytes 13.1 % (21.0-51.0); %Monocytes 5.5 % (0.0-10.0); Hemoglobin 11.1 g/dL (14.0-18.0); Mean Corpuscular HGB CONC 32.2 g/dL (32.0-36.0); Mean Corpuscular Hemoglobin 32.4 pg (27.0-31.0); Mean Platelet Volume 7.3 fL (7.4-10.4); Platelet Count 288 thou/uL (130-400); Red Blood Cell (RBC) Count 3.44 mill/uL (4.70-6.10)
[2018-06-25 05:44] LABS: Anion Gap 12 mmol/L (10-20); BUN (Urea Nitrogen) 24 mg/dL (8.4-25.7); Calc. Creatinine Clearance 92 mL/min (70-130); Calcium 9.1 mg/dL (7.8-10.44); Carbon Dioxide 23 mmol/L (23-31); Chloride 108 mmol/L (98-107); Estimated GFR-MDRD 64; Glucose 104 mg/dL (80-115); Potassium 4.1 mmol/L (3.5-5.1); Sodium 139 mmol/L (136-145)
[2018-06-25] MEDS: Oxybutynin 5 MG TAB PO SCH ×3 (05:57→20:02)
[2018-06-25] MEDS: Chlorhexidine Gluconate 15 ML UDCUP SSP SCH ×3 (08:17→16:56)
[2018-06-25] MEDS: Docusate 100 MG CAP PO SCH ×2 (08:17→20:02)
[2018-06-25] MEDS: Morphine 4 MG/ML VIAL IV PRN (13:05)
[2018-06-25] MEDS ORDERED: HYDROcodone/Acetaminophen 10/325 mg Tablet PO PRN (18:42)
--- NOTE | 2018-06-25 20:55 | PRG ---
DATE OF SERVICE: 06/25/2018 SUBJECTIVE: The patient states his pain is not well controlled. He is still hurting quite a bit. H e states the [place] was not really helping with his pain, but the morphine is helping somewhat. He george s been able to eat and is not having any fevers. He has not yet gotten up out of bed. OBJECTIVE: VITAL SIGNS: Temperature 98.1, pulse 80, respirations 20, blood pressure 152/76, saturations 100% on room air. GENERAL: No apparent distress, communicative and alert, appears to be in slight pain, but nothing se kenny. ABDOMEN: Soft, nontender, nondistended. GENITOURINARY: Coon catheter in place with suprapubic tube in place connected to a white catheter w ith clear yellow urine. BACK: Perineal incision is clean, dry, and intact. Kevin drain has some mild amount of secretions . EXTREMITIES: No clubbing, cyanosis or edema. LABORATORY DATA: The full set of labs in the [facility] system, which I reviewed. Of note, patient's white count is 12 with hemoglobin 11.1, creatinine is 1.36. ASSESSMENT AND PLAN: A 63-year-old black male with bulbar urethral stricture, status post ventral on lay buccal mucosal graft augmentation urethroplasty on postop day #1 with pain that is not well contr olled. I will increase his pain medication to [place] 10/325 to see if this works better for him given that he is a large individual. We will also consult a walking program to help him out of bed and se e how well he can do on his own. Once his pain is properly controlled, we will probably remove his P enrose drain, since I did not seem to be putting out a tremendous amount of fluid. He will then go h ome with both catheters in place. I will continue to follow along and ensure that he is recovering a ppropriately.
[2018-06-25] MEDS: HYDROcodone/Acetaminophen 10/325 mg Tablet PO PRN (21:14)
[2018-06-26] MEDS: HYDROcodone/Acetaminophen 10/325 mg Tablet PO PRN ×4 (01:05→13:00)
[2018-06-26] MEDS: Oxybutynin 5 MG TAB PO SCH ×2 (05:03→14:24)
[2018-06-26 05:04] LABS: #Eosinphils 0.2 thou/uL (0.0-0.7); #Lymphocytes 2.8 thou/uL (1.20-3.40); #Monocytes 0.6 thou/uL (0.11-0.59); #Neutrophils 6.1 thou/uL (1.40-6.50); %Basophils 0.4 % (0.0-1.0); %Lymphocytes 28.6 % (21.0-51.0); %Monocytes 5.8 % (0.0-10.0); %Neutrophils 63.2 % (42.0-75.0); Hemoglobin 10.7 g/dL (14.0-18.0); Mean Corpuscular HGB CONC 33.5 g/dL (32.0-36.0); Mean Corpuscular Hemoglobin 33.6 pg (27.0-31.0); Mean Platelet Volume 7.1 fL (7.4-10.4); Platelet Count 279 thou/uL (130-400); White Blood Cell (WBC) Count 9.6 thou/uL (4.8-10.8)
[2018-06-26 05:12] LABS: Anion Gap 9 mmol/L (10-20); BUN (Urea Nitrogen) 21 mg/dL (8.4-25.7); Calc. Creatinine Clearance 108 mL/min (70-130); Calcium 9.2 mg/dL (7.8-10.44); Carbon Dioxide 25 mmol/L (23-31); Chloride 107 mmol/L (98-107); Estimated GFR-MDRD 77; Glucose 109 mg/dL (80-115); Potassium 3.5 mmol/L (3.5-5.1); Sodium 137 mmol/L (136-145)
[2018-06-26] MEDS: Chlorhexidine Gluconate 15 ML UDCUP SSP SCH ×3 (08:45→16:57)
[2018-06-26] MEDS: Docusate 100 MG CAP PO SCH (08:45)
[2018-06-26 15:22] VITALS: BP 128/80; TEMP 98
--- NOTE | 2018-06-26 16:19 | PRG ---
DATE OF SERVICE: 06/26/2018 SUBJECTIVE: Patient states that he is feeling much better since increasing his [place] to 10/325. He states this is working much better for him. He has not had any significant bladder spasms. He was a ble to get up out of bed and walk, which he has done successfully on his own. He is well aware of ho w to take care of his Coon catheter as he has had an SP tube for the past 3 months. His drain has p ut out subsequent fluid, but is not copious amounts of drainage which is what would be expected with urine leak. He denies any chest pain, shortness of breath or any uncontrolled pain. OBJECTIVE: VITAL SIGNS: Temperature 97.5, pulse 67, respirations 18, blood pressure 131/77, saturation 96% on r oom air. GENERAL: No apparent distress, communicative and alert. CARDIOVASCULAR: Regular rate and rhythm. ABDOMEN: Soft, nontender, nondistended, positive bowel sounds. GENITOURINARY: SP tube and Coon catheter are connected to a white catheter which was connected to a gravity bag with clear yellow urine. Kevin drain is currently in place. I have asked the nurses to remove this. There is only a mild amount of saturation. EXTREMITIES: No clubbing, cyanosis or edema. ASSESSMENT AND PLAN: A 63-year-old black male with bulbar urethral stricture, status post ventral on lay buccal mucosal graft augmentation urethroplasty postop day #2. His pain appears to be better con trolled today and he is eager to be discharged home. I will plan for him to go home, at which point I will see him back in approximately 2 weeks with an antegrade VCUG to see if the catheter can be rem izabel or replaced or needs to be replaced. We will keep him on his higher dose pain medication since this seems to be working better for him and I will refill his oxybutynin since that helps with his lo ng-term bladder spasm control.
--- NOTE | 2018-06-26 23:25 | DIS ---
DATE OF ADMISSION: 06/24/2018 DATE OF DISCHARGE: 06/26/2018 ADMITTING DIAGNOSIS: Bulbar urethral stricture. DISCHARGE DIAGNOSIS: Bulbar urethral stricture. PROCEDURE PERFORMED: Ventral onlay buccal mucosal graft augmentation urethroplasty. BRIEF HISTORY: Mr. Katz is a 63-year-old black male with multiple comorbidities who presented to me with a bulbar urethral stricture. He had multiple endoscopic treatments which had failed. I r ecommended urethroplasty and after discussion of risks and benefits and all options, he has agreed to proceed forward. The full history can be found in the dictated portion of the [employer] system. HOSPITAL COURSE: After surgeries (please see operative note for details), the patient was admitted to the hospital for postoperative recovery. He had a Kevin drain, a Coon catheter through the pen is as well as a SP tube both 16 [place]. They were hooked up to wide connector to a gravity bag. Pos top day #1, he had fairly significant pain which was not well controlled. We opted to increase his p ain medication dose up to [place] 10/325 instead of 5/325. He did not have any significant bladder spa sms, but did not walk much first day. After increase in pain medication dosing, he was able to get u p and get out of bed and say his pain was much better controlled. He was eating a soft mechanical di et with chlorhexidine swish and spit afterwards. He seemed to be doing much better, was in better sp irits and felt like he could go home like this. I went over his discharge instructions and he has ag ruben to be discharged. DISPOSITION: Discharge to home. DISCHARGE CONDITION: Good. DISCHARGE MEDICATIONS: Include resuming all of his home medications except for his aspirin which he will hold for 3 more days and then may restart. I have asked him to stop [place] 5/325, and I will swi tch him over to 10/325 for postoperative pain. I have also asked him to hold his Xarelto until he is at least 3 days out from his surgery. DISCHARGE INSTRUCTIONS: Include no heavy lifting, no strenuous activity. He may not submerge under water, but is allowed to shower. He should keep dry gauze over the incision line which he should maddison nge daily to prevent moisture accumulation in the groin area. Follow up will be in 2 weeks for an an tegrade VCUG at which point we will perform a void trial and see if he has any type of urethral leak around the repair site. If there is, he will need to have his catheter replaced.
== END 2018-06-26 17:20 | disposition home or self-care (01) | DRG 672 ==
LOC: SURG A 06-24 05:47 → EDSTATUS 06-24 09:30 → SURG A 06-24 13:18
PROVIDERS: ADMIT Urology; ATTEND Urology
PROC: 0TUD07Z Supplement Urethra with Autologous Tissue Substitute, Open Approach (ICD-10-PCS; principal; 2018-06-24)
PROC: 0CB4XZZ Excision of Buccal Mucosa, External Approach (ICD-10-PCS; 2018-06-24)
DX: N35.812 Other bulbous urethral stricture, male (principal); I10 Essential (primary) hypertension; I25.10 Atherosclerotic heart disease of native coronary artery without angina pectoris; I48.91 Unspecified atrial fibrillation; Z79.01 Long term (current) use of anticoagulants
CPT/HCPCS: 36415; 80048; 85025; 90471; 90732; G0009; J0690; J0696; J1100; J2001; J2270; J2405; J2550; J2704; J3010; J3490; J7050; Q9968; S0020

== ENCOUNTER 2018-06-15 09:44 | Outpatient (CLI) | payer MEDICARE, MEDICAID ==
[2018-06-15 11:48] LABS: INR-International Normal Ratio 1.4; PTT 48.3 SEC (22.9-36.1); Prothrombin Time 16.7 SEC (12.0-14.7)
[2018-06-15 11:51] LABS: Bilirubin Negative (Negative); Blood, Urine Large (Negative); Clarity CLOUDY (Clear); Glucose, Urine (Dipstick) Negative (Negative); Leukocyte Large (Negative); Nitrite Positive (Negative); Protein, Urine (Dipstick) 100 mg/dL (Neg-Trace); Urobilinogen 0.2 mg/dL (0.2-1.0)
[2018-06-15 11:56] LABS: Bacteria/HPF 2+ HPF (None Seen); Hyaline Casts/LPF 4-6 HYALINE CAST LPF (0-3 Hyaline); Pathc Cast-AUWi Flag 0.87 (0-2.49); Squamous Epithelial None Seen HPF (0-3)
[2018-06-15 11:58] LABS: Anion Gap 10 mmol/L (10-20); BUN (Urea Nitrogen) 13 mg/dL (8.4-25.7); Calc. Creatinine Clearance 0 mL/min (70-130); Calcium 9.7 mg/dL (7.8-10.44); Carbon Dioxide 25 mmol/L (23-31); Chloride 108 mmol/L (98-107); Estimated GFR-MDRD 71; Glucose 84 mg/dL (80-115); Sodium 139 mmol/L (136-145)
[2018-06-15 11:59] LABS: Hemoglobin 12.7 g/dL (14.0-18.0); Mean Corpuscular HGB CONC 33.5 g/dL (32.0-36.0); Mean Corpuscular Hemoglobin 33.6 pg (27.0-31.0); Mean Platelet Volume 7.3 fL (7.4-10.4); Platelet Count 273 thou/uL (130-400); RBC Distribution Width 13.2 % (11.5-14.5); Red Blood Cell (RBC) Count 3.79 mill/uL (4.70-6.10); White Blood Cell (WBC) Count 5.2 thou/uL (4.8-10.8)
== END 2018-06-15 09:45 | disposition home or self-care (01) ==
LOC: LABBT 09:44
PROVIDERS: ATTEND Urology
DX: Z01.818 Encounter for other preprocedural examination (principal); N99.111 Postprocedural bulbous urethral stricture, male; I25.119 Atherosclerotic heart disease of native coronary artery with unspecified angina pectoris
CPT/HCPCS: 80048; 81001; 85027; 85610; 85730; 87077; 87086; 87186; 93005; 93010

== ENCOUNTER 2018-06-19 05:46 | Emergency (ER) | payer MEDICARE, MEDICAID ==
[2018-06-19] MEDS ORDERED: Acetaminophen 500 MG TAB ONE (06:57)
--- NOTE | 2018-06-19 08:09 | RAD ---
LEFT HAND 3 VIEWS: Date: 06/19/18 HISTORY: Hand pain and swelling. FINDINGS: There is evidence of old ulnar styloid fracture, ununited. Mild degenerative change at the first carp ometacarpal. Metacarpals are intact. Old, healed fracture involving the proximal phalanx of the third finger. Mild degenerative change at the DIP joints. Mild degenerative change at the first MCP joint. IMPRESSION: There are chronic findings as described. No fracture or acute abnormality identified. POS: [facility]
== END 2018-06-19 07:00 | disposition home or self-care (01) ==
LOC: ERS 05:46
DX: L03.114 Cellulitis of left upper limb (principal); I25.2 Old myocardial infarction; I10 Essential (primary) hypertension; F17.210 Nicotine dependence, cigarettes, uncomplicated; K21.9 Gastro-esophageal reflux disease without esophagitis; E78.5 Hyperlipidemia, unspecified; Z79.899 Other long term (current) drug therapy

== ENCOUNTER 2018-07-07 08:06 | Outpatient (CLI) | payer MEDICARE, MEDICAID ==
--- NOTE | 2018-07-07 11:03 | RAD ---
VOIDING CYSTOURETHROGRAM: HISTORY: A 63-year-old male, status post urethral stricture, status post repair. EXPOSURE: Fluoroscopic time 1.4 minutes with 4494.4 Gy per m2. FINDINGS: A voiding cystourethrogram was performed. The patient's transurethral Coon catheter was removed. C ontrast was instilled through the patient's suprapubic tube. The bladder was filled adequately. The patient voided. There was no evidence of leakage of contrast from the patient's urethra. Small ret ention of the contrast was seen in the region of the bulbourethral, which may be at the site of the r epair, but this was not external to the expected location of the urethra. A small amount of reflux w as seen during the examination into the distal right ureter. IMPRESSION: 1. No evidence of urethral leak or stricture. 2. Mild right vesicoureteral reflux. POS: RAUL
[2018-07-07] MEDS ORDERED: ISOVUE-370 76%-LOCM 1 ML ONE (13:29)
== END 2018-07-07 08:07 | disposition home or self-care (01) ==
LOC: RAD 08:06
PROVIDERS: ATTEND Urology
DX: N99.111 Postprocedural bulbous urethral stricture, male (principal); N13.70 Vesicoureteral-reflux, unspecified
CPT/HCPCS: 51600; 74455

== ENCOUNTER 2018-09-07 08:23 | Outpatient (CLI) | payer MEDICARE, MEDICAID ==
--- NOTE | 2018-09-07 09:09 | RAD ---
CERVICAL SPINE SERIES THREE VIEWS: History: Neck pain, post op. FINDINGS: Patient has undergone anterior cervical fusion. There is a plate and screws extending from C3 to C5. Markers of the disc implant are within the anterior confines of these narrowed disc levels. There is bony fusion across the C5-6 level. There is degenerative disc narrowing at C6-7. IMPRESSION: Marked arthritic changes of the spine and post-operative changes as discussed above. POS: TPC
== END 2018-09-07 08:24 | disposition home or self-care (01) ==
LOC: TBSIIMAG 08:23
PROVIDERS: ATTEND Surgery
DX: M54.2 Cervicalgia (principal); M46.96 Unspecified inflammatory spondylopathy, lumbar region; Z98.890 Other specified postprocedural states
CPT/HCPCS: 72040

== ENCOUNTER 2018-09-17 08:15 | Emergency (ER) | payer MEDICARE, MEDICAID | END 2018-09-17 09:29 | disposition home or self-care (01) | LOC: ERS 08:15 | DX: H60.502 Unspecified acute noninfective otitis externa, left ear (principal); I25.10 Atherosclerotic heart disease of native coronary artery without angina pectoris; I25.2 Old myocardial infarction; K21.9 Gastro-esophageal reflux disease without esophagitis; E78.5 Hyperlipidemia, unspecified; I10 Essential (primary) hypertension; F41.9 Anxiety disorder, unspecified; F31.9 Bipolar disorder, unspecified; F17.210 Nicotine dependence, cigarettes, uncomplicated | CPT/HCPCS: 99282 ==

== ENCOUNTER 2018-11-14 17:20 | Emergency (ER) | payer MEDICARE, MEDICAID | END 2018-11-14 18:02 | disposition home or self-care (01) | LOC: ERS 17:20 | DX: L02.412 Cutaneous abscess of left axilla (principal); L03.112 Cellulitis of left axilla; I25.10 Atherosclerotic heart disease of native coronary artery without angina pectoris; I25.2 Old myocardial infarction; E78.5 Hyperlipidemia, unspecified; I10 Essential (primary) hypertension; F17.210 Nicotine dependence, cigarettes, uncomplicated; F41.9 Anxiety disorder, unspecified; F31.9 Bipolar disorder, unspecified; K21.9 Gastro-esophageal reflux disease without esophagitis | CPT/HCPCS: 10060 ==

== ENCOUNTER 2018-12-05 20:28 | Observation (INO) | payer MEDICARE, MEDICAID ==
--- NOTE | 2018-12-05 21:23 | RAD ---
PORTABLE CHEST: 12/05/18 PROVIDED CLINICAL HISTORY: Chest pain. FINDINGS: Comparison 12/29/17. Cardiac and mediastinal silhouette is within normal limits. Vascular calcification involves the aorti c arch. No focal consolidation, pleural fluid or pneumothorax apparent. IMPRESSION: No evidence for an acute cardiopulmonary process. POS: JERRELL
[2018-12-05 21:35] LABS: #Basophils 0.1 thou/uL (0.0-0.2); #Eosinphils 0.3 thou/uL (0.0-0.7); #Lymphocytes 2.8 thou/uL (1.20-3.40); #Monocytes 0.5 thou/uL (0.11-0.59); %Basophils 0.9 % (0.0-1.0); %Eosinophils 3.9 % (0.0-10.0); %Lymphocytes 42.5 % (21.0-51.0); %Monocytes 6.9 % (0.0-10.0); %Neutrophils 45.8 % (42.0-75.0); Hemoglobin 13.3 g/dL (14.0-18.0); Mean Corpuscular HGB CONC 33.9 g/dL (32.0-36.0); Mean Corpuscular Hemoglobin 34.1 pg (27.0-31.0); Mean Platelet Volume 7.3 fL (7.4-10.4); Platelet Count 301 thou/uL (130-400); RBC Distribution Width 13.2 % (11.5-14.5); White Blood Cell (WBC) Count 6.5 thou/uL (4.8-10.8)
[2018-12-05 21:43] LABS: INR-International Normal Ratio 1.1; PTT 38.1 SEC (22.9-36.1); Prothrombin Time 13.8 SEC (12.0-14.7)
[2018-12-05 21:58] LABS: ALT (SGPT) 28 U/L (8-55); AST (SGOT) 29 U/L (5-34); Albumin 4.4 g/dL (3.4-4.8); Alkaline Phosphatase 72 U/L (40-150); Anion Gap 14 mmol/L (10-20); BUN (Urea Nitrogen) 14 mg/dL (8.4-25.7); Bilirubin, Total 0.4 mg/dL (0.2-1.2); CK (CPK) 1115 U/L (30-200); Calc. Creatinine Clearance 0 mL/min (70-130); Calcium 9.9 mg/dL (7.8-10.44); Carbon Dioxide 24 mmol/L (23-31); Chloride 106 mmol/L (98-107); Estimated GFR-MDRD 78; Globulin 3.3 g/dL (2.4-3.5); Glucose 114 mg/dL (80-115); Lipase 84 U/L (8-78); Potassium 3.6 mmol/L (3.5-5.1); Protein, Total 7.7 g/dL (5.8-8.1); Sodium 140 mmol/L (136-145)
[2018-12-05] MEDS ORDERED: Aspirin Chewable 81 MG TAB ONE (22:04)
[2018-12-05] MEDS ORDERED: Morphine 4 MG/ML VIAL ONE (22:27)
[2018-12-05] MEDS ORDERED: Enoxaparin Sodium 80 MG/0.8 ML SYRINGE ONE (22:40)
[2018-12-05] MEDS ORDERED: Enoxaparin Sodium 40 MG/0.4 ML SYRINGE ONE (22:40)
[2018-12-05 22:55] LABS: Magnesium 2.2 mg/dL (1.6-2.6); Phosphorus 3.5 mg/dL (2.3-4.7)
[2018-12-05] MEDS ORDERED: Nitroglycerin 0.4 MG TAB (25 Tab Bottle) PO PRN (23:18)
[2018-12-05] MEDS ORDERED: Ondansetron PF 4 MG/2 ML Vial IVP PRN (23:19)
[2018-12-05] MEDS ORDERED: Ondansetron ODT 4 MG TAB PO PRN (23:19)
[2018-12-05] MEDS ORDERED: Calcium Carbonate 500 MG ChewTAB PO PRN (23:19)
[2018-12-05] MEDS ORDERED: Senokot S 8.6-50 MG TAB PO PRN (23:19)
[2018-12-05] MEDS ORDERED: Sodium Chloride 0.9% 1,000 ML IV SCH (23:45)
--- NOTE | 2018-12-05 23:58 | HP ---
PRIMARY CARE PHYSICIAN: [facility]. PRIMARY ADMINISTRATION INTERNSHIP: Dr. Rhodes. CHIEF COMPLAINT: Chest discomfort. HISTORY OF PRESENT ILLNESS: The patient is a 63-year-old male with coronary artery disease; paroxysmal atrial fibrillation, on anticoagulation; hypertension; presented to the emergency room with chest discomfort. The chest discomfort started around 5:00 p.m. while he was at home. It was substernal and constant without any aggravating or relieving factor. It was pressure-like without any lightheadedness, dizziness, or syncope. He has been short of breath lately on [id number] exertion. His pain progressively got worse, for which he presented to the emergency room. He denies recent immobilization travel. He is compliant with Xarelto 20 mg daily. He had intermittent palpitations as well. He had mild orthopnea as well. He denies any fever, chills, cough, or heartburn. In the emergency room, his initial EKG showed atrial fibrillation with heart rate of [address]-T wave changes. His last cardiac cath was in July 2017 that showed severe multivessel disease. His chest x-ray was negative for infiltrate or edema. He received morphine, aspirin, and 20 mg IV Cardizem push in the emergency room. PAST MEDICAL HISTORY: 1. Paroxysmal atrial fibrillation, on anticoagulation. 2. Coronary artery disease with last cardiac cath in 2016. 3. Hypertension. 4. Gastroesophageal reflux disease. 5. Anxiety and depression. 6. Benign prostatic hypertrophy. 7. Urethral stricture. 8. Chronic low back pain. PAST SURGICAL HISTORY: 1. Multiple urological procedures. 2. Cardiac catheterization. 3. Coronary artery stent placement in 2010. 4. Prostate surgery. 5. Back surgery in 2016. CURRENT HOME MEDICATIONS: 1. Coreg 6.25 mg b.i.d. 2. HCTZ 25 mg daily. 3. Lisinopril 20 mg daily. 4. Aleve as needed. 5. Omeprazole 40 mg daily. 6. Fish oil one capsule daily. 7. Pravastatin 80 mg daily. 8. Xarelto 20 mg daily. 9. Ambien 10 mg q.h.s. SOCIAL HISTORY: The patient currently lives at home with his family. Continues to smoke on and off less than half pack a day. Denies any current use of alcohol or drug use. FAMILY HISTORY: Positive for hypertension and coronary artery disease. REVIEW OF SYSTEMS: All other review of systems was reviewed and was found negative. PHYSICAL EXAMINATION: VITAL SIGNS: Temperature 98.3, respiration of 18, pulse rate of 116, blood pressure of 115/72, with O2 saturation of 96% on room air. GENERAL: A 63-year-old male, in no apparent distress. Chest discomfort somewhat improved. HEENT: Head, atraumatic and normocephalic. Sclerae anicteric. Moist mucous membranes. No oral lesion. NECK: Supple. No JVD appreciated. No carotid bruit. LUNGS: Clear to auscultation bilaterally. No wheezing, rales, or rhonchi. HEART: S1 and S2 present. Irregularly irregular. 2/6 systolic murmur over the mitral area. ABDOMEN: Soft, obese, bowel sounds present. EXTREMITIES: 1+ edema in bilateral lower extremities. No calf tenderness. SKIN: Warm and dry. LYMPH NODES: No palpable lymph nodes in the neck. PERIPHERAL VASCULAR: Radial pulses palpable bilaterally and equal. MUSCULOSKELETAL: No joint swelling or tenderness. LABORATORY FINDINGS: Troponin was negative. CK was 1115. WBC count was 6.5 with hemoglobin 13.3, hematocrit 39.2. Chest x-ray by my review was negative for infiltrate or edema. BUN was 14, creatinine 1.14. LFTs in normal range. EKG by my review, as discussed above. IMPRESSION: 1. Chest discomfort. 2. Atrial fibrillation with rapid ventricular response. 3. Coronary artery disease with the last cardiac cath in 2017. 4. Obstructive sleep apnea, on CPAP. 5. Hypertension. 6. Rhabdomyolysis, probably secondary to muscle exertion. 7. Chronic kidney disease, stage 2. 8. Macrocytic anemia. 9. Gastroesophageal reflux disease. 10. Hyperlipidemia. 11. Anxiety and depression, mild, stable without any suicidal ideation. 12. Benign prostatic hypertrophy. Flomax and oxybutynin were recently discontinued by Urology. 13. Chronic pain syndrome. 14. Ongoing tobacco abuse. PLAN: The patient will be monitored in the telemetry unit. Cardiology will be consulted. We will check TSH. Folic acid and vitamin B12 level as outpatient is recommended. We will recheck CK in a.m. We will resume beta blockers. We will start gentle IV hydration for rhabdomyolysis. We will recheck CK in a.m. We will consult Cardiology, Dr. Rhodes, in a.m. Plan of care was discussed with the patient in detail. He stated understanding. We will resume anticoagulation. Job ID: [id number]
[2018-12-06 01:07] VITALS: BMI 39.4
[2018-12-06 01:12] LABS: Troponin I Less than 0.010 ng/mL (< 0.028)
[2018-12-06 05:11] LABS: Troponin I 0.011 ng/mL (< 0.028)
[2018-12-06 08:16] LABS: Troponin I Less than 0.010 ng/mL (< 0.028)
[2018-12-06] MEDS: Acetaminophen 325 MG TAB PO PRN (09:18)
[2018-12-06] MEDS: Rivaroxaban 10 MG TAB PO SCH (10:15)
[2018-12-06] MEDS: Carvedilol 6.25 MG TAB PO SCH ×2 (10:16→18:05)
[2018-12-06] MEDS: Aspirin 81 mg Enteric Coated Tablet PO SCH (10:16)
[2018-12-06] MEDS: Lisinopril 20 MG TAB PO SCH (10:16)
--- NOTE | 2018-12-06 11:06 | PDOC.PN ---
- Subjective Encounter Start Date: 12/06/18 Encounter Start Time: 11:04 Mr. Katz was seen today in follow-up of Chest pain and atrial fibrillation. - Objective Resuscitation Status - Order Detail: 12/05/18 23:19 Resuscitation Status Routine Resuscitation Status: FULL: Full Resuscitation MAR Reviewed: Yes Vital Signs & Weight: Vital Signs (12 hours) Temp Pulse Resp BP BP Pulse Ox 12/06/18 10:16 123/79 12/06/18 07:10 97.6 F 72 20 114/73 94 L 12/06/18 04:27 74 18 123/79 98 12/06/18 02:42 92 L 12/06/18 00:59 97.9 F 71 20 136/95 H 92 L Weight Weight 259 lb Result Diagrams: 12/05/18 20:53 12/05/18 20:53 Phys Exam - Physical Examination HEENT: PERRLA Respiratory: no wheezing, no rales, no rhonchi, clear to auscultation bilateral Cardiovascular: RRR, no significant murmur, no rub Gastrointestinal: soft, non-tender, no distention, positive bowel sounds Musculoskeletal: no edema Dx/Plan (1) Chest pain Code(s): R07.9 - CHEST PAIN, UNSPECIFIED Status: Acute (2) Atrial fibrillation Code(s): I48.91 - UNSPECIFIED ATRIAL FIBRILLATION Status: Acute (3) CAD (coronary artery disease) Code(s): I25.10 - ATHSCL HEART DISEASE OF [place]' CORONARY ARTERY W/O ANG PCTRS Status: Chronic (4) GERD (gastroesophageal reflux disease) Code(s): K21.9 - GASTRO-ESOPHAGEAL REFLUX DISEASE WITHOUT ESOPHAGITIS Status: Chronic (5) Schizophrenia Code(s): F20.9 - SCHIZOPHRENIA, UNSPECIFIED Status: Chronic (6) Hypertension Code(s): I10 - ESSENTIAL (PRIMARY) HYPERTENSION Status: Chronic - Plan * Chest pain- this has resolved * Atrial fibrillation- his heart rate is improved, and he is still in Atrial fibrillation * He is on XArelto for stroke prevention * Echo has been ordered, and Cardiology has been consulted * GERD- stable continue Protonix * HTN- blood pressure is controlled
[2018-12-06] MEDS ORDERED: Atorvastatin Calcium 20 MG TAB PO SCH (21:00)
--- NOTE | 2018-12-07 01:27 | CON ---
DATE OF CONSULTATION: 12/06/2018 INDICATION FOR CONSULTATION: A 63-year-old patient with known coronary artery disease, chest pain, and abnormal CPK. His troponin I's are unremarkable or negative x3. We were asked to see him due to the abnormalities of the CKs and also due to his known history of coronary disease and chest pain. A 63-year-old gentleman has started having some chest pain Gary evening in the middle of his chest, lasted for couple of hours. He presented to the emergency room. He was found to have elevated CK. His pain is somewhat better today. Review of the records shows that he does have coronary artery disease and his last cardiac catheterization was in 2017. At which time, he had severe three-vessel coronary artery disease, it was felt to be best treated by medical management. His ejection fraction in 2017 was estimated about 55% to 60% and he did have a history of diastolic dysfunction. On review of the records, it shows that he has always had an elevated CK. Since 2012, his CK was in the 600 range. The highest that I know from review of the records was also in 2014 was 1272 on a CK and yesterday, his CK again was 1115; in 2017, was also 1224. He continues to have chronic elevation of the CKs, but cardiac enzymes were unremarkable. At this time, he is more comfortable. He denies any chest pain at this time. He has been on medications for his coronary artery disease. We may need to add additional medications such as Ranexa if he is able to afford the medication. He has [facility] and Medicaid, and should be able to be given Ranexa if he is able to take the medication. He has been on aspirin as well as atorvastatin, Coreg, lisinopril, Xarelto, as well as his other medications. At this time, I would agree with the present management of the patient. We will continue his cardiac medications. We will continue to monitor the patient, but at this time he is again negative x3 for any troponin I elevation. When he did present to the emergency room, apparently he did have atrial fibrillation with rapid ventricular response, which after being given medications in the emergency room, converted to a sinus rhythm. EKG does feel the palpitations when he has intermittent atrial fibrillation and he has been maintained on Xarelto for this. PHYSICAL EXAMINATION: GENERAL: Reveals a well-developed, well-nourished gentleman, who is in no acute distress. VITAL SIGNS: Blood pressure is 122/79. He is afebrile. Heart rates in the 50s to 70s, shows a sinus rhythm, respiratory rate is 16, O2 saturation 97%. HEENT: Head to be normocephalic and atraumatic. Carotid pulses are present. I did not hear any significant bruits. CHEST: Clear to auscultation. CARDIOVASCULAR: At this time reveals a regular rate and rhythm. ABDOMEN: Soft and nontender. Positive bowel sounds are present. He does have some obesity. EXTREMITIES: No clubbing, cyanosis, or edema. Pedal pulses are present. NEUROLOGICAL: The patient appears to be intact. LABORATORY DATA: Noted for the CPK, but troponin I is negative. His sodium is 140, potassium was 3.6, BUN was 14, creatinine 1.14. Blood sugar was 114. IMPRESSION: 1. History of known coronary artery disease, last catheterization in 2016. He had a stent placed in 2010. He continues to have intermittent chest discomfort, but EKG does not show any acute ST-segment changes that would indicate ischemia. His troponin I's are negative. We will leave up to the discretion of Dr. Rhodes when he sees the patient tomorrow whether or not he wishes to proceed with a repeat cardiac catheterization or continue to manage him medically. It would appear from the previous dictations that he most likely will be best managed by medications. 2. Chronic elevation of the CK, uncertain as to whether or not this may be due to his statin medications. He may need to have a muscle biopsy to determine whether or not the CK is from some other etiology. He also has a history of paroxysmal atrial fibrillation for which he remains on Xarelto. We will continue his medication. 3. History of hypertension. His blood pressure is stable at this time. We will continue the same medications. 4. Gastroesophageal reflux disease. This appears to be stable. 5. History of anxiety and depression. This also appears to be under relatively good control. At this time, we will leave this up to the discretion to the primary care physician. At this time from a cardiac standpoint, overall he appears to be stable and I will start him on Ranexa to see whether or not this will help some with his discomfort. Job ID: [id number]
[2018-12-07 05:16] LABS: Troponin I Less than 0.010 ng/mL (< 0.028)
--- NOTE | 2018-12-07 07:09 | PDOC.CTH ---
Cardiology Progress Note - Subjective Doing well. No recurrent episodes of CP. Reviewed films. Pt with occluded RCA and severe stenosis of OMB at bifurcation - Objective Vital Signs Pulse Resp BP Pulse Ox 12/06/18 19:50 69 18 126/79 94 L Weight 259 lb 12/06/18 12/07/18 12/08/18 06:59 06:59 06:59 Intake Total 1900 Output Total 1500 Balance 400 - Physical Examination General/Neuro: NAD Neck: carotid US brisk, no JVD present Lungs: CTA, unlabored respirations Heart: PMI normal, RRR Abdomen: NT/ND, soft Extremities: + femoral B - Telemetry Telemetry Rhythm: sr - Labs Result Diagrams: 12/05/18 20:53 12/05/18 20:53 Troponin/CKMB Troponin I Less than 0.010 ng/mL (< 0.028) 12/07/18 04:24 - Assessment/Plan CP CAD Reviewed filmed. Pt with occluded RCA and severe stenosis of OMB at bifurcation. LAD with <50% stenosis. Angio vs. meds. If intervention, would be to the OMB but could potentially long-term the branch off OMB causing UT On BB and ranexa Add Imdur If stable, ok to dc home from my standpoint with op fu
[2018-12-07 08:00] VITALS: TEMP 97.5
[2018-12-07] MEDS: Aspirin 81 mg Enteric Coated Tablet PO SCH (09:55)
[2018-12-07] MEDS: Carvedilol 6.25 MG TAB PO SCH (09:55)
[2018-12-07] MEDS: Lisinopril 20 MG TAB PO SCH (09:56)
[2018-12-07] MEDS: Rivaroxaban 10 MG TAB PO SCH (09:56)
--- NOTE | 2018-12-07 10:40 | CON ---
DATE OF CONSULTATION: PRIMARY CARE DOCTOR: Dr. Devora Hernández. PRIMARY STONECUTTER: Dr. Rhodes. REFERRING DOCTOR: Dr. Levine. REASON FOR CONSULTATION: Chest pain. HISTORY OF PRESENT ILLNESS: Mr. Katz is a very pleasant male with a significant history of coronary artery disease with several catheterization attempt and stent placement in 2010, hypertension, paroxysmal atrial fibrillation being on the oral anticoagulant for more than 10 years, and recent prostate procedure. The patient was relatively doing well until yesterday around 5:00 p.m. after he ate. He finished his supper around 4:30 in the evening, he started having pressure-like chest pain to the midsternal area for 2 hours and other symptoms, he with lightheadedness and shortness of breath. Around 7:00 p.m., he tried to go to bed, but he could not due to those symptoms, so he decided to present to the emergency department for further evaluation and treatment. At that time, the patient was found to have atrial fibrillation with rapid ventricular response. Heart rate going up to 140 to 150s. He has been diagnosed with atrial fibrillation for about 10 years. He has been on Xarelto. He is taking the medicine. He is compliant on the dose of medicine. He also complained of pressure like the chest pain when he smoked. At this moment during the initial Cardiology assessment, the patient denied any chest pain, heaviness, tightness, palpitation, fluttering in his chest lightheadedness or any other cardiac complaints. He complained of intermittent needle-like sharp pain and burning like sharp pain on the right breast. The patient underwent 2 cardiac catheterization in 07/2017 with 10% of stenosis in mid LAD, 40% in the proximal left circumflex, 85% in OM1 and 100% stenosis in distal RCA with collateral flow from the 3rd OM to 3rd RPL. The patient had echocardiogram done in 2017 with EF 55% to 60%, diastolic dysfunction, mildly dilated left atrium, mild mitral valve regurgitation, and mild tricuspid regurgitation. PAST MEDICAL HISTORY: Hypertension, coronary artery disease, hyperlipidemia, GERD, paroxysmal atrial fibrillation, sleep apnea using CPAP at night, and gout. PAST SURGICAL HISTORY: Back surgery, neck surgery, stent placement in 2010. Prostate surgery, a 2018, left glaucoma surgery. FAMILY HISTORY: The patient's mother had medical history of CVA, DC at the age of around 71 or 72, and also with hypertension. The patient's one of the sister has medical history of breast cancer and cardiovascular disease. The patient does not recall what kind of cardiovascular disease she has. SOCIAL HISTORY: He is single. He has one daughter who is living well. He smoke average to half pack a day. He is ex EtOH abuse, quit 5 to 6 years ago. 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 He does not do exercise regularly. He does not drink any caffeine. ALLERGIES: HE HAS NO KNOWN DRUG ALLERGIES. MEDICATION: 1. Ambien 10 mg at night. 2. Hydrochlorothiazide 25 mg once a day. 3. Pravastatin 80 mg once a day. 4. Omeprazole 40 mg in the morning. 5. Lisinopril 20 mg once a day. 6. Carvedilol 6.25 mg twice a day. 7. Xarelto 20 mg once a day. 8. [place]-3 one capsule once a day. 9. Naproxen 500 mg twice a day as needed. REVIEW OF SYSTEMS: A 12-point review of systems negative unless otherwise mentioned in the HPI. PHYSICAL EXAMINATION: VITAL SIGNS: Blood pressure 114/73, temperature 97.6, pulse is 72 in atrial fibrillation. According to kitchen utility associate, he has intermittent atrial fibrillation with rapid ventricular response for up to the maximum of 5 minutes, respiratory rate 20, and O2 saturation 98% on room air. GENERAL: The patient is alert and oriented x4, not in acute distress. HEENT: Head; normocephalic, atraumatic. Eyes, extraocular muscle movement intact. ENT and mouth, oral and nasal mucosa moist without lesion. NECK: Supple. Normal range of motion. No JVD. RESPIRATORY: Clear to auscultate bilaterally. No wheezing, rales, or rhonchi noted. CARDIOVASCULAR: Irregularly irregular. There is no S3 or S4. No significant murmur, hives, or thrill noted. EXTREMITIES: 3+ pulses in bilateral upper extremities and right lower extremity, and 2+ pulses in dorsal pedis and posterior tibial arteries, but no pulses by palpation to left popliteal and left femoral arteries. At this moment, the patient denied claudication, however, patient complained on numbness to the lower extremities, especially left side, but no edema or any discoloration to the bilateral lower extremities. ABDOMEN: Soft, nontender. No mass to palpitate. Bowel sounds are present. SKIN: Warm and dry. No lesion, rash has been noted. MUSCULOSKELETAL: The patient able to move all extremities without any difficulty at this moment. PSYCHIATRIC: The patient's mood is appropriate. NEUROLOGIC: The patient is alert and oriented x4. Nonfocal. LABORATORY DATA: WBC 6.5, hemoglobin 13.3, hematocrit 39.2, platelet 301. INR 1.1. Sodium 140, potassium 3.6, BUN 14, creatinine 1.14, glucose 114, phosphorus of 3.5, magnesium 2.2, AST 29, ALT 28, creatinine kinase more than 1100 yesterday and 939 today. Troponin is negative. BNP is less than 10. TSH 2.5706. Chest x-ray shows no evidence of acute cardiopulmonary process. The patient had a carotid Doppler study done in 2014, which shows no significant stenosis. The patient's 12-lead EKG showed atrial fibrillation with heart rate in 70s. No significant ST elevation change or T-wave inversion. ASSESSMENT: 1. Chest pain. The patient's EKG has not showed any ST-segment change or T-wave inversion and the patient's troponin levels have been normal. Chest pains from having atrial fibrillation with rapid ventricular response. He also complained of the chest pain with smoking. The patient's cath report in 07/2017 shows some 100% stenosis, however, with collateral flow from OM3, which is normal. At this moment, we would like to continue medical treatment only. No stress test or any further cardiac workup for this patient for his chest pain, and strongly encouraged the patient to start smoking cessation. 2. Atrial fibrillation with rapid ventricular response. At this moment, he is on the telemetry, the monitor is showing continuous atrial fibrillation with well-controlled heart rate. He has been on Xarelto for more than 3 months. I would like to discuss with Dr. Casas, but however, we would like to go ahead with some antiarrhythmic medicine such as Multaq or possible amiodarone to suppress his atrial fibrillation, and echocardiogram was ordered to see his cardiac function. We would like to continue monitor on telemetry. 3. Coronary artery disease with history of stent placement in 2010. The patient's catheterization report of 07/2017 showed normal with mild plaque. He is on beta pedro, aspirin, and Lipitor at this moment, would like to continue those medications. 4. Hypertension. His blood pressure has been stable with current medication. 5. Hyperlipidemia. He is on Lipitor 20 mg once a day. 6. Tobacco abuse. Strongly recommend the patient to start smoking cessation. We discussed about risk tobacco abuse to his cardiovascular and pulmonary systems. Thank you Dr. Levine, thank you very much for allowing the Cardiology Service to participate in the care of this patient. We will follow along the patient's care team and make further recommendations as appropriate. Job ID: [id number]
[2018-12-07 10:53] LABS: Lactic Acid 1.3 mmol/L (0.5-2.2)
[2018-12-07] MEDS: Acetaminophen 325 MG TAB PO PRN (10:56)
[2018-12-07 11:55] VITALS: BP 136/83
--- NOTE | 2018-12-07 12:16 | PDOC.PN ---
- Subjective Encounter Start Date: 12/07/18 Encounter Start Time: 12:13 Subjective: Patient sat upright and eating lunch. Denies any complaints at present. -: Reports having an episode of right sided lower sternal chest pain lasting -: seconds and then left sided chest pain lasting a bit longer earlier this am Relieved with tylenol. No further pain since then. No associated nausea or vomiting. Noted tenderness in the upper chest bilaterally. Associated with persistent dry cough. No fevers. Feels well and at baseline at present. No hemoptysis. No pain with inspiration. Denies any abdominal pain. No bowel changes or urinary symptoms. No lower leg swelling or edema or calf tenderness. - Objective Resuscitation Status - Order Detail: 12/05/18 23:19 Resuscitation Status Routine Resuscitation Status: FULL: Full Resuscitation Vital Signs & Weight: Vital Signs (12 hours) Temp Pulse Resp BP BP Pulse Ox 12/07/18 11:47 97.5 F L 64 20 136/83 94 L 12/07/18 10:55 65 16 136/78 94 L 12/07/18 09:56 137/82 12/07/18 09:55 137/82 12/07/18 07:13 97.5 F L 62 20 137/82 94 L Weight Weight 259 lb I&O: 12/06/18 12/07/18 12/08/18 06:59 06:59 06:59 Intake Total 1900 240 Output Total 1500 Balance 400 240 Result Diagrams: 12/05/18 20:53 12/05/18 20:53 Phys Exam - Physical Examination Constitutional: NAD HEENT: PERRLA, moist MMs, oral pharynx no lesions Neck: no nodes, supple, full ROM Respiratory: no wheezing, no rales, no rhonchi, clear to auscultation bilateral Cardiovascular: RRR Gastrointestinal: soft, non-tender, no distention, positive bowel sounds Musculoskeletal: no edema, pulses present Neurological: normal sensation, moves all 4 limbs Psychiatric: normal affect, A&O x 3 Skin: no rash Dx/Plan (1) Chest pain Code(s): R07.9 - CHEST PAIN, UNSPECIFIED Status: Acute (2) CAD (coronary artery disease) Code(s): I25.10 - ATHSCL HEART DISEASE OF [place] CORONARY ARTERY W/O ANG PCTRS Status: Acute (3) Dyslipidemia Code(s): E78.5 - HYPERLIPIDEMIA, UNSPECIFIED Status: Chronic - Plan cont current plan of care Recurrent chest pain earlier this morning. -: Repeat troponin. -: Started on Imdur by Dr. Rhodes, appears to be for medical management -: Further management as per Dr. Rhodes. * .
[2018-12-07 12:54] LABS: ALT (SGPT) 29 U/L (8-55); AST (SGOT) 28 U/L (5-34); Albumin 4.3 g/dL (3.4-4.8); Alkaline Phosphatase 70 U/L (40-150); Anion Gap 11 mmol/L (10-20); BUN (Urea Nitrogen) 16 mg/dL (8.4-25.7); Bilirubin, Total 0.6 mg/dL (0.2-1.2); Calc. Creatinine Clearance 107 mL/min (70-130); Calcium 9.7 mg/dL (7.8-10.44); Carbon Dioxide 28 mmol/L (23-31); Chloride 105 mmol/L (98-107); Estimated GFR-MDRD 77; Globulin 3.4 g/dL (2.4-3.5); Glucose 82 mg/dL (80-115); Lipase 70 U/L (8-78); Potassium 4.3 mmol/L (3.5-5.1); Protein, Total 7.7 g/dL (5.8-8.1); Sodium 140 mmol/L (136-145)
[2018-12-07 13:39] LABS: #Basophils 0.1 thou/uL (0.0-0.2); #Eosinphils 0.3 thou/uL (0.0-0.7); #Lymphocytes 2.1 thou/uL (1.20-3.40); #Monocytes 0.3 thou/uL (0.11-0.59); #Neutrophils 2.9 thou/uL (1.40-6.50); %Basophils 1.2 % (0.0-1.0); %Eosinophils 5.7 % (0.0-10.0); %Lymphocytes 37.1 % (21.0-51.0); %Monocytes 5.7 % (0.0-10.0); %Neutrophils 50.2 % (42.0-75.0); Hemoglobin 12.3 g/dL (14.0-18.0); Mean Corpuscular HGB CONC 33.8 g/dL (32.0-36.0); Mean Corpuscular Hemoglobin 34.7 pg (27.0-31.0); Mean Platelet Volume 7.2 fL (7.4-10.4); Platelet Count 275 thou/uL (130-400); RBC Distribution Width 13.2 % (11.5-14.5); Red Blood Cell (RBC) Count 3.55 mill/uL (4.70-6.10); White Blood Cell (WBC) Count 5.7 thou/uL (4.8-10.8)
--- NOTE | 2018-12-07 17:00 | DIS ---
DATE OF ADMISSION: 12/05/2018 DATE OF DISCHARGE: 12/07/2018 CONSULTING PHYSICIANS: 1. Dr. Casas, Cardiology. 2. The patient was then seen by Dr. Rhodes. DISCHARGE DIAGNOSES: 1. Known coronary artery disease, recommended medical management due to risk involving cardiac catheterization. 2. Occluded right coronary artery and severe stenosis of obtuse marginal branch at bifurcation. Left anterior descending with less than 50% stenosis. If intervention were to be done, it would be to the obtuse marginal branch; however, this could potentially nursing home the branch of obtuse marginal branch causing myocardial infarction, as per Dr. Rhodes. 3. The patient was started on Ranexa and Imdur. 4. Chronic elevation of CK. 5. Hypertension. 6. Gastroesophageal reflux disease. 7. Anxiety and depression. 8. Paroxysmal atrial fibrillation, on anticoagulation. 9. BPH. 10. Urethral stricture. 11. Chronic low back pain. HOSPITAL COURSE: Mr. Katz is a 63-year-old man, who presented with complaints of chest pain. He underwent an EKG in the ER, which showed atrial fibrillation with rapid ventricular response with a heart rate of [address] segments. There were changes possibly consistent with a lateral infarct, age undetermined and possible inferior infarct, age undetermined. The patient is known to have coronary artery disease. A consultation was placed to Cardiology. The patient had investigations done including troponins, which were negative x3. He had a chest x-ray done, which was unremarkable. LFTs were unremarkable except for an elevated CK, which was initially 1115 and has improved to 724 today. The patient has been eating and drinking, maintaining oral intake without any nausea or vomiting. No abdominal pain. Moving his bowels as normal and denies any urinary symptoms. The patient received gentle IV hydration throughout his stay. He was seen by Dr. Casas, who started the patient on Ranexa. He underwent an echocardiogram, which showed an EF of 50% to 55% with probable diastolic dysfunction. Noted to have mild mitral regurgitation and mild tricuspid regurgitation. The left atrium was mildly dilated. Otherwise, the echocardiogram was unremarkable. He was then seen by Dr. Rhodes, who discussed with the patient the option of medical management versus angio. However, given the risk of causing an UT with intervention, it was decided to proceed with medical management. Dr. Rhodes did add on Imdur. On day of discharge, the patient states he is feeling better and back at baseline. He did experience an episode of right lower sternal chest pain, that came on suddenly early hours this morning and then radiated to the left side of the chest lasting a few minutes. He has had no further pain since then. He reports having some tenderness to palpation of his chest and has had an occasional cough. Denies having any nausea or vomiting. No associated diaphoresis. Has had no further episodes of pain since then. It seemed to have settled fully with Tylenol. The patient denies any hemoptysis or breathlessness. No lower leg swelling. Following review of investigations, it was deemed the patient was medically fit for discharge home. Dr. Rhodes did state if the patient remained stable, he was cleared from a cardiac standpoint. We did repeat a troponin several hours after the reported chest pain that he experienced early this morning. The troponin was negative. He, therefore, has been cleared for discharge home. REVIEW OF SYSTEMS: All other review of systems apart from those mentioned above is negative. PHYSICAL EXAMINATION: GENERAL: The patient appears well developed, well nourished. He is in no acute distress. VITAL SIGNS: Temperature 97.5, pulse 64, respirations 20, O2 saturation 94% on room air, blood pressure 126/83. HEENT: Normocephalic and atraumatic. Pupils are equal, round, and reactive to light. Sclerae are without icterus. Oropharynx is clear. NECK: Supple without lymphadenopathy. LUNGS: Clear to auscultation bilaterally without any wheezes, rales, or rhonchi. No pain on inspiration. Mild right-sided chest wall discomfort with palpation. ABDOMEN: Soft, nontender, and nondistended. Normoactive bowel sounds present. No guarding or rigidity. No renal angle tenderness. EXTREMITIES: Without swelling or calf tenderness. No edema. NEUROLOGIC: Alert and oriented x3. SKIN: Without rash or jaundice. LABORATORY DATA: White blood count 5.7, hemoglobin 12.3, hematocrit 36.5, platelets 275. CMP, unremarkable. His GFR is 77, which is stable. BUN 16, creatinine 1.16. Lactic acid 1.3. CK 724, further reduced from yesterday when it was 939. On initial presentation, it was 1115. Troponin, negative. Lipase, normal. IMAGING DATA: 1. Chest x-ray, 12/05/2018. No evidence of acute cardiopulmonary process. 2. Echocardiogram, as mentioned above in HPI. DISCHARGE MEDICATIONS: 1. The patient was given a prescription for Imdur ER 30 mg p.o. daily. 2. The patient was given a prescription for Ranexa 500 mg p.o. twice daily. The patient was advised otherwise to resume home medications. FOLLOWUP: The patient was advised to follow up with his primary care physician within 1 week and follow up with Cardiology as an outpatient. CONDITION: Stable. ACTIVITY: As tolerated. DIET: Heart-healthy. Encouraged to maintain adequate hydration. DISPOSITION: The patient was medically cleared for discharge home today, December 07, 2018. The patient's case was discussed with Dr. Cheney, who agrees with plan of care as described above. Job ID: [id number]
--- NOTE | 2018-12-07 22:45 | EKG ---
Test Reason : Blood Pressure : / mmHG Vent. Rate : 075 BPM Atrial Rate : 061 BPM P-R Int : 000 ms QRS Dur : 096 ms QT Int : 392 ms P-R-T Axes : 000 050 071 degrees QTc Int : 437 ms Atrial fibrillation Nonspecific T wave abnormality , probably digitalis effect Abnormal ECG When compared with ECG of 05-DEC-2018 20:33, (Unconfirmed) QRS axis Shifted left Criteria for Lateral infarct are no longer Present Borderline criteria for Inferior infarct are no longer Present Confirmed by Itzel STEWARD ([id number]) on 12/07/2018 10:45:23 PM Referred By: PATTI Confirmed By:Itzel STEWARD
== END 2018-12-07 15:38 | disposition home or self-care (01) ==
LOC: ERS 20:28 → 2SW 22:50
PROVIDERS: ADMIT Internal Medicine; ATTEND Internal Medicine
DX: R07.2 Precordial pain (principal); I25.10 Atherosclerotic heart disease of native coronary artery without angina pectoris; I48.0 Paroxysmal atrial fibrillation; K21.9 Gastro-esophageal reflux disease without esophagitis; N40.0 Benign prostatic hyperplasia without lower urinary tract symptoms; F41.8 Other specified anxiety disorders; N35.919 Unspecified urethral stricture, male, unspecified site; F17.210 Nicotine dependence, cigarettes, uncomplicated; G47.33 Obstructive sleep apnea (adult) (pediatric); I12.9 Hypertensive chronic kidney disease with stage 1 through stage 4 chronic kidney disease, or unspecified chronic kidney disease; N18.2 Chronic kidney disease, stage 2 (mild); D63.1 Anemia in chronic kidney disease; G89.4 Chronic pain syndrome; M62.82 Rhabdomyolysis; M10.9 Gout, unspecified; F10.11 Alcohol abuse, in remission; F20.9 Schizophrenia, unspecified; E78.5 Hyperlipidemia, unspecified; Z79.01 Long term (current) use of anticoagulants; Z79.899 Other long term (current) drug therapy; Z99.89 Dependence on other enabling machines and devices; Z95.5 Presence of coronary angioplasty implant and graft
CPT/HCPCS: 71045; 80053; 82550 ×3; 83605; 83690 ×2; 83735; 83880; 84100; 84484 ×5; 85025; 85610; 85730; 93005 ×2; 93306; 94660 ×2; 94760 ×2; 96361; 96374; 96375; 99285; G0378 ×2; 36415; 84443; 93010; J1650; J2270

== ENCOUNTER 2019-01-25 13:21 | Outpatient (CLI) | payer MEDICARE, MEDICAID ==
--- NOTE | 2019-01-25 13:55 | RAD ---
EXAM: 7 views of the cervical spine HISTORY: Neck pain COMPARISON: None FINDINGS: AP, lateral, oblique, flexion/extension, and open mouth odontoid views of the cervical spin e shows the patient is status post anterior fusion of C3-C6. Disc spacers are seen along the anterior aspect of the C3/4 and C4/5 disc spaces. There is slight separation of the plate from the an terior aspect of the vertebral bodies without perihardware lucency surrounding the screws. Alignment is unchanged with flexion and extension. No prevertebral soft tissue swelling is seen. Ali gnment is unchanged with flexion and extension. IMPRESSION: Postsurgical changes of the cervical spine with unchanged alignment with bending
--- NOTE | 2019-01-25 15:37 | MRI ---
MRI CERVICAL SPINE: HISTORY: Spondylosis. M47.812. Multiplanar, multisequence noncontrast enhanced MRI images cervical spine obtained. Comparison made to previous exam from 12/13/2014. FINDINGS: The spinal cord demonstrates no evidence of masses or lesions. C1-2: Unremarkable. C2-3: There is a broad-based disc bulge compressing the thecal sac resulting in mild thecal sac compr ession. The neural foramen are patent. C3-4: There is a broad-based disc osteophyte complex centrally compressing the thecal sac resulting i n moderate to severe thecal sac compression. There is asymmetric compression of the right cord compared to the left. There is moderate right-sided neural foraminal narrowing due to uncovertebral o steophyte hypertrophy. The left neural foramen is patent. There is ACDF with fusion of the C3, C4, and C5 levels using ACDF plates and screws. C4-5: Fusion changes seen at this level. There is a broad-based disc osteophyte complex resulting in moderate compression of the thecal sac. No evidence of cord compression seen. The neural foramen demonstrate mild bilateral narrowing. C5-6: Disc desiccation is seen. There is a broad-based disc osteophyte complex centrally compressing the thecal sac resulting in moderate degree of central stenosis. The neural foramen are patent. C6-7: Disc desiccation seen. There is a broad-based disc osteophyte complex compressing the thecal sa c resulting in mild central stenosis. The neural foramen are patent. C7-T1: Unremarkable. IMPRESSION: ACDF with fusion of the C3, C4 and C5 levels. Transcribed Date/Time: 01/25/2019 3:40 PM
== END 2019-01-25 13:22 | disposition home or self-care (01) ==
LOC: BICMRI 13:21
PROVIDERS: ATTEND Anesthesiology Pain Medicine
DX: M47.812 Spondylosis without myelopathy or radiculopathy, cervical region (principal); Z98.1 Arthrodesis status
CPT/HCPCS: 72052; 72141

== ENCOUNTER 2019-02-05 16:08 | Emergency (ER) | payer MEDICARE, MEDICAID | END 2019-02-05 17:54 | disposition home or self-care (01) | LOC: ERS 16:08 | DX: G89.29 Other chronic pain (principal); M54.2 Cervicalgia; M54.9 Dorsalgia, unspecified; I25.10 Atherosclerotic heart disease of native coronary artery without angina pectoris; K21.9 Gastro-esophageal reflux disease without esophagitis; E78.5 Hyperlipidemia, unspecified; I10 Essential (primary) hypertension; F32.9 Major depressive disorder, single episode, unspecified; F17.210 Nicotine dependence, cigarettes, uncomplicated; Z79.899 Other long term (current) drug therapy; Z79.01 Long term (current) use of anticoagulants | CPT/HCPCS: 99283 ==

== ENCOUNTER 2019-02-12 03:28 | Emergency (ER) | payer MEDICARE, MEDICAID | END 2019-02-12 04:01 | disposition home or self-care (01) | LOC: ERS 03:28 | DX: R22.0 Localized swelling, mass and lump, head (principal); F41.9 Anxiety disorder, unspecified; F31.9 Bipolar disorder, unspecified; F17.210 Nicotine dependence, cigarettes, uncomplicated; E78.5 Hyperlipidemia, unspecified; I25.10 Atherosclerotic heart disease of native coronary artery without angina pectoris; I25.2 Old myocardial infarction; K21.9 Gastro-esophageal reflux disease without esophagitis; I10 Essential (primary) hypertension; Z79.899 Other long term (current) drug therapy; Z79.01 Long term (current) use of anticoagulants | CPT/HCPCS: 99281 ==

== ENCOUNTER 2019-04-07 10:25 | Outpatient (CLI) | payer MEDICARE, MEDICAID ==
--- NOTE | 2019-04-07 12:28 | CT ---
EXAM: CT cervical spine PROVIDED CLINICAL HISTORY: Cervical radiculopathy. Patient states neck pain that radiates into bilateral arms with associated nu mbness. TECHNIQUE: Contiguous axial CT images are obtained through the cervical spine from the skull base to the T1-2 le geoffrey. Sagittal and coronal reformatted images are provided. COMPARISON: MRI cervical spine on 01/25/2019. FINDINGS: There are postsurgical changes related to anterior cervical fusion of the C3-4 and C4-5 levels with a n anterior plate and screws transfixing these levels. Intradiscal prostheses are noted. There is only a single screw present in the anterior aspect of the C3 vertebral body with minimal lucency pop cent to the screw which could be related to hardware loosening. No definite additional hardware complication is appreciated. No fracture or subluxation is seen involving the cervical spine. The thyroid gland demonstrates a grossly normal nonenhanced CT of There is posterior osteophyte forma tion present at the C3-4 level resulting in narrowing of the central spinal canal and likely flattening of the anterior aspect of the spinal cord. There is mild to moderate bilateral neural fora naomi narrowing greater on the right. Mild to moderate left-sided neural foraminal narrowing at the C4-5 level with mild decrease in AP dimension of the central canal is present and related to posterio r osteophyte formation. There is mild right-sided neural foraminal narrowing at C5-6 level in addition to mild narrowing of the central spinal canal. No prevertebral soft tissue swelling apparent. Minimal emphysematous changes are seen in the limited visualized lung apices. The thyroid gland demonstrates a grossly normal nonenhanced CT appearance. Mild vascular calcifications are seen in the carotid arteries. IMPRESSION: Postoperative and degenerative changes of the cervical spine. Only a single screw is seen within the anterior plate of the C3 vertebral body, and there is minimal lucency seen surrounding the screws suggesting hardware loosening.
== END 2019-04-07 10:26 | disposition home or self-care (01) ==
LOC: BICCT 10:25
PROVIDERS: ATTEND Physician Assistant Surgical
DX: M50.10 Cervical disc disorder with radiculopathy, unspecified cervical region (principal); M48.02 Spinal stenosis, cervical region; M47.22 Other spondylosis with radiculopathy, cervical region; R93.7 Abnormal findings on diagnostic imaging of other parts of musculoskeletal system; Z98.1 Arthrodesis status
CPT/HCPCS: 72125

== ENCOUNTER 2019-05-12 18:13 | Emergency (ER) | payer MEDICARE, MEDICAID ==
[2019-05-12 18:55] LABS: #Basophils 0.1 thou/uL (0.0-0.2); #Eosinphils 0.3 thou/uL (0.0-0.7); #Monocytes 0.7 thou/uL (0.11-0.59); #Neutrophils 2.1 thou/uL (1.40-6.50); %Basophils 1.1 % (0.0-1.0); %Eosinophils 5.9 % (0.0-10.0); %Monocytes 13.9 % (0.0-10.0); %Neutrophils 40.2 % (42.0-75.0); Hemoglobin 12.5 g/dL (14.0-18.0); Mean Corpuscular HGB CONC 35.5 g/dL (32.0-36.0); Mean Platelet Volume 7.5 fL (7.4-10.4); Platelet Count 260 thou/uL (130-400); Red Blood Cell (RBC) Count 3.48 mill/uL (4.70-6.10); White Blood Cell (WBC) Count 5.2 thou/uL (4.8-10.8)
[2019-05-12 19:14] LABS: Acetaminophen Less than 6.0 mcg/mL (10.0-30.0); Alcohol Less than 10 mg/dL (Less than 10); Salicylate Less than 8.0 mg/dL (15.0-30.0)
[2019-05-12 19:23] LABS: ALT (SGPT) 46 U/L (8-55); AST (SGOT) 49 U/L (5-34); Albumin 4.3 g/dL (3.4-4.8); Alkaline Phosphatase 63 U/L (40-150); Anion Gap 12 mmol/L (10-20); BUN (Urea Nitrogen) 22 mg/dL (8.4-25.7); Bilirubin, Total 0.4 mg/dL (0.2-1.2); CK (CPK) 1428 U/L (30-200); Calc. Creatinine Clearance 0 mL/min (70-130); Calcium 9.5 mg/dL (7.8-10.44); Carbon Dioxide 23 mmol/L (23-31); Chloride 107 mmol/L (98-107); Estimated GFR-MDRD 68; Globulin 3.1 g/dL (2.4-3.5); Glucose 98 mg/dL (80-115); Potassium 4.6 mmol/L (3.5-5.1); Protein, Total 7.4 g/dL (5.8-8.1); Sodium 137 mmol/L (136-145)
[2019-05-12 23:01] LABS: Amphetamine Not Detected (NotDetected); Barbiturates Screen Not Detected (NotDetected); Benzodiazepine Screen Not Detected (NotDetected); Cocaine Metabolite Screen Not Detected (NotDetected); Medtox Control Line Valid? VALID (VALID); Medtox Reader # READER 4; Methadone Not Detected (NotDetected); Methamphetamine Not Detected (NotDetected); Opiate Screen Not Detected (NotDetected); Oxycodone Screen Not Detected (NotDetected); Phencyclidine (PCP) Not Detected (NotDetected); THC/Cannabinoid Screen Not Detected (NotDetected); Tricyclic Screen Not Detected (NotDetected)
--- NOTE | 2019-05-15 12:32 | EKG ---
Test Reason : Blood Pressure : / mmHG Vent. Rate : 071 BPM Atrial Rate : 071 BPM P-R Int : 180 ms QRS Dur : 108 ms QT Int : 406 ms P-R-T Axes : 053 016 060 degrees QTc Int : 441 ms Normal sinus rhythm nbml Confirmed by TRISHA BEST DO ([id number]), newspaper photo editor DAVIDSON BROWN ([id number]) on 05/15/2019 12:31:36 PM Referred By: Confirmed By:TRISHA BEST DO
== END 2019-05-13 00:30 | disposition home or self-care (01) ==
LOC: ERS 18:13
DX: T42.6X1A Poisoning by other antiepileptic and sedative-hypnotic drugs, accidental (unintentional), initial encounter (principal); I25.10 Atherosclerotic heart disease of native coronary artery without angina pectoris; I25.2 Old myocardial infarction; K21.9 Gastro-esophageal reflux disease without esophagitis; E78.5 Hyperlipidemia, unspecified; I10 Essential (primary) hypertension; F41.9 Anxiety disorder, unspecified; F31.9 Bipolar disorder, unspecified; F17.210 Nicotine dependence, cigarettes, uncomplicated; Z79.899 Other long term (current) drug therapy; Z79.01 Long term (current) use of anticoagulants
CPT/HCPCS: 36415; 80053; 80306; 80307; 82550; 84443; 85025; 93005; 96360; 96361

== ENCOUNTER 2019-05-15 16:27 | Emergency (ER) | payer MEDICARE, MEDICAID | END 2019-05-15 17:20 | disposition home or self-care (01) | LOC: ERS 16:27 | DX: R68.84 Jaw pain (principal); I25.10 Atherosclerotic heart disease of native coronary artery without angina pectoris; I25.2 Old myocardial infarction; K21.9 Gastro-esophageal reflux disease without esophagitis; E78.5 Hyperlipidemia, unspecified; F31.9 Bipolar disorder, unspecified; F41.9 Anxiety disorder, unspecified; F17.210 Nicotine dependence, cigarettes, uncomplicated; Z95.5 Presence of coronary angioplasty implant and graft; Z79.899 Other long term (current) drug therapy | CPT/HCPCS: 99283 ==

== ENCOUNTER 2019-05-19 12:18 | Emergency (ER) | payer MEDICARE, MEDICAID ==
[2019-05-19 14:15] LABS: #Lymphocytes 1.2 thou/uL (1.20-3.40); #Neutrophils 12.7 thou/uL (1.40-6.50); %Basophils 0.2 % (0.0-1.0); %Eosinophils 0.1 % (0.0-10.0); %Monocytes 6.6 % (0.0-10.0); %Neutrophils 85.2 % (42.0-75.0); Hemoglobin 12.5 g/dL (14.0-18.0); Mean Corpuscular HGB CONC 35.2 g/dL (32.0-36.0); Mean Corpuscular Hemoglobin 35.5 pg (27.0-31.0); Mean Platelet Volume 7.2 fL (7.4-10.4); Platelet Count 242 thou/uL (130-400); Red Blood Cell (RBC) Count 3.52 mill/uL (4.70-6.10); White Blood Cell (WBC) Count 14.9 thou/uL (4.8-10.8)
[2019-05-19 14:36] LABS: ALT (SGPT) 32 U/L (8-55); AST (SGOT) 32 U/L (5-34); Albumin 4.2 g/dL (3.4-4.8); Alkaline Phosphatase 57 U/L (40-110); Anion Gap 13 mmol/L (10-20); BUN (Urea Nitrogen) 24 mg/dL (8.4-25.7); Bilirubin, Total 1.1 mg/dL (0.2-1.2); Calc. Creatinine Clearance 0 mL/min (70-130); Calcium 9.4 mg/dL (7.8-10.44); Carbon Dioxide 21 mmol/L (23-31); Chloride 102 mmol/L (98-107); Estimated GFR-MDRD 47; Globulin 3.4 g/dL (2.4-3.5); Glucose 77 mg/dL (80-115); Potassium 3.7 mmol/L (3.5-5.1); Protein, Total 7.6 g/dL (5.8-8.1); Sodium 132 mmol/L (136-145)
--- NOTE | 2019-05-19 14:38 | RAD ---
EXAM: Chest one view: HISTORY: Shortness of breath, bodyaches COMPARISON: 12/05/2018 FINDINGS: Heart size: Within normal limits. Lungs: Clear of acute process. No evidence for pneumonia, pleural effusion, acute edema, or pneumothorax, or other significant acute process. IMPRESSION: No significant acute intrathoracic disease.
--- NOTE | 2019-05-19 14:39 | RAD ---
EXAM: Abdomen one view: HISTORY: Constipation, aching all over, weakness COMPARISON: None FINDINGS: Minimal motion artifact. Large body habitus lowers sensitivity of this study. No evidence for large or small bowel obstruction. No free intraperitoneal air . No overt calculus. IMPRESSION: No acute process.
[2019-05-19 17:49] LABS: Bacteria/HPF 4+ HPF (None Seen); Bilirubin Negative (Negative); Blood, Urine Trace (Negative); Clarity Turbid (Clear); Glucose, Urine (Dipstick) Normal (Negative); Leukocyte 500 Leu/uL (Negative); Nitrite 2+ (Negative); Protein, Urine (Dipstick) 20 mg/dL (Neg-Trace); RBC/HPF 0-3 HPF (0-3); Squamous Epithelial 0-3 HPF (0-3); Urobilinogen Normal mg/dL (Less than 2); WBC/HPF Greater than 50 HPF (0-3)
[2019-05-19] MEDS ORDERED: cefTRIAXone\\ROCEPHIN 1 GM VIAL ONE (21:06)
--- NOTE | 2019-05-29 09:53 | EKG ---
Test Reason : WEAKNESS Blood Pressure : / mmHG Vent. Rate : 093 BPM Atrial Rate : 093 BPM P-R Int : 176 ms QRS Dur : 098 ms QT Int : 350 ms P-R-T Axes : 049 026 068 degrees QTc Int : 435 ms Normal sinus rhythm Possible Left atrial enlargement Septal infarct , age undetermined Abnormal ECG Confirmed by EMMA SOLIS D.O. ([id number]), video effects editor GARY TOUSSAINT ([id number]) on 05/29/2019 9:53:10 AM Referred By: IRMA Confirmed By:EMMA SOLIS D.O.
== END 2019-05-19 21:49 | disposition home or self-care (01) ==
LOC: ERS 12:18
DX: E86.0 Dehydration (principal); K59.00 Constipation, unspecified; N39.0 Urinary tract infection, site not specified; I25.10 Atherosclerotic heart disease of native coronary artery without angina pectoris; I25.2 Old myocardial infarction; K21.9 Gastro-esophageal reflux disease without esophagitis; E78.5 Hyperlipidemia, unspecified; I10 Essential (primary) hypertension; F31.9 Bipolar disorder, unspecified; F41.9 Anxiety disorder, unspecified; F17.210 Nicotine dependence, cigarettes, uncomplicated; Z79.891 Long term (current) use of opiate analgesic; Z79.01 Long term (current) use of anticoagulants; Z79.899 Other long term (current) drug therapy
CPT/HCPCS: 71045; 74018; 80053; 81003; 81015; 83880; 84484; 85025; 87804; 93005; 96361; 96365; J0696

== ENCOUNTER 2019-09-15 13:50 | Inpatient (IN) | payer MEDICARE, MEDICAID ==
[2019-09-15 15:22] LABS: #Eosinphils 0.1 thou/uL (0.0-0.7); #Lymphocytes 1.3 thou/uL (1.20-3.40); #Monocytes 0.7 thou/uL (0.11-0.59); #Neutrophils 12.4 thou/uL (1.40-6.50); %Basophils 0.1 % (0.0-1.0); %Monocytes 4.6 % (0.0-10.0); %Neutrophils 85.3 % (42.0-75.0); Hemoglobin 12.8 g/dL (14.0-18.0); Mean Corpuscular Hemoglobin 32.3 pg (27.0-31.0); Mean Platelet Volume 7.3 fL (7.4-10.4); Platelet Count 289 thou/uL (130-400); RBC Distribution Width 13.5 % (11.5-14.5); Red Blood Cell (RBC) Count 3.98 mill/uL (4.70-6.10); White Blood Cell (WBC) Count 14.6 thou/uL (4.8-10.8)
--- NOTE | 2019-09-15 15:31 | RAD ---
PORTABLE CHEST ONE VIEW: HISTORY: Fever. Cough. Dizziness. High blood pressure. COMPARISON: 05/19/2019 FINDINGS: Heart size is within normal limits. No confluent pneumonia, overt edema or pleural effusion. IMPRESSION: 1. No evidence of pneumonia. 2. No significant acute intrathoracic disease. 3. Atherosclerosis of the aorta with some ectasia. POS: OFF
[2019-09-15 15:42] LABS: ALT (SGPT) 21 U/L (8-55); AST (SGOT) 24 U/L (5-34); Albumin 4.2 g/dL (3.4-4.8); Alkaline Phosphatase 74 U/L (40-110); Anion Gap 15 mmol/L (10-20); BUN (Urea Nitrogen) 14 mg/dL (8.4-25.7); Bilirubin, Total 0.8 mg/dL (0.2-1.2); CK (CPK) 664 U/L (30-200); Calc. Creatinine Clearance 0 mL/min (70-130); Calcium 9.3 mg/dL (7.8-10.44); Carbon Dioxide 21 mmol/L (23-31); Chloride 105 mmol/L (98-107); Estimated GFR-MDRD 66; Globulin 3.6 g/dL (2.4-3.5); Glucose 114 mg/dL (80-115); Magnesium 1.6 mg/dL (1.6-2.6); Protein, Total 7.8 g/dL (5.8-8.1); Sodium 137 mmol/L (136-145)
[2019-09-15 16:22] LABS: Bacteria/HPF 2+ HPF (None Seen); Bilirubin Negative (Negative); Blood, Urine 3+ (Negative); Clarity Turbid (Clear); Glucose, Urine (Dipstick) Normal (Negative); Leukocyte 500 Leu/uL (Negative); Nitrite Negative (Negative); Protein, Urine (Dipstick) 100 mg/dL (Neg-Trace); RBC/HPF Greater than 50 HPF (0-3); Squamous Epithelial 0-3 HPF (0-3); WBC/HPF Greater than 50 HPF (0-3)
[2019-09-15] MEDS ORDERED: cefTRIAXone\\ROCEPHIN 1 GM VIAL ONE (16:38)
--- NOTE | 2019-09-15 18:42 | HP ---
PRIMARY CARE PHYSICIAN: [facility] in [place]. PRIMARY UROLOGIST: Dr. Sanchez. CHIEF COMPLAINT: Dysuria. HISTORY OF PRESENT ILLNESS: This is a 64-year-old male with a known history of previous urethral stricture with urethroplasty done early last year by Dr. Sanchez. He has not had any urinary difficulties since then until the last few weeks or months. He has been having a little more trouble peeing, but still able to void well and then over the weekend, he developed some blood in his urine. He started to feel kind of bad. The blood resolved, but he started having tingling every time he peed and then yesterday and today, he has been peeing a lot more frequently, he started to have some nausea, no appetite and started to have some fevers on and off. He did not check his temperature, so eventually he came into the emergency room. In the ER, he was found to have a urinary tract infection, also be mildly tachycardic, but with sinus rhythm. He has a history of atrial fibrillation, but was in sinus here. He had an elevated white blood cell count, so he was given fluids, IV antibiotics after cultures and is being admitted to the hospital. REVIEW OF SYSTEMS: CONSTITUTIONAL: See HPI. EYES: No double vision or blurred vision. ENT: No congestion, drainage, or sore throat. CARDIOVASCULAR: No chest pain. No palpitations or racing heart. PULMONARY: No unusual coughing, wheezing, or shortness of breath. He does have occasional coughing from his COPD and sleep apnea. GASTROINTESTINAL: No abdominal pain, but he has felt had an upset stomach and felt he could not really eat anything after breakfast today. No diarrhea. He did have some constipation starting over the weekend. MUSCULOSKELETAL: He has chronic back pain going down to his legs and some leg weakness from a bad back, sees Pain Management for it, but is off any narcotic pain medicines. SKIN: No rashes or other lesions that he has noticed. NEUROLOGICAL: No numbness, tingling, or focal weakness. PAST MEDICAL HISTORY: 1. Paroxysmal atrial fibrillation, on chronic anticoagulation. 2. Coronary artery disease with known inoperable blockages. 3. Hypertension. 4. Gastroesophageal reflux disease. 5. Benign prostatic hyperplasia. 6. Urethral stricture. 7. Chronic low back pain and neck pain. 8. Obstructive sleep apnea, on CPAP at night. PAST PSYCHIATRIC HISTORY: 1. Anxiety. 2. Depression. 3. Bipolar. SOCIAL HISTORY: The patient lives in the [facility]. He smokes about 5 cigarettes per day. No alcohol or illicit drug use. He reports he is a full code and his medical decision maker should he be incapacitated would be his sister, her name is Paty Dickinson. The patient does ambulate with a rolling walker due to his back pain causing his legs to give out occasionally. FAMILY HISTORY: Positive for hypertension and coronary artery disease. ALLERGIES: NO KNOWN DRUG ALLERGIES. CURRENT MEDICATIONS: 1. Lisinopril 20 mg daily. 2. Amlodipine 2.5 mg daily. 3. Pravastatin 80 mg daily. 4. Xarelto 20 mg daily. 5. Carvedilol 6.25 mg, I believe twice a day. 6. Zolpidem 10 mg at night. 7. Gabapentin 100 mg daily. 8. Naproxen as needed. 9. Hydrochlorothiazide 25 mg daily. 10. Omeprazole 40 mg daily. 11. Latuda 20 mg daily. 12. Sertraline 25 mg daily. 13. Mirtazapine 7.5 mg at night. 14. Imdur 30 mg daily. 15. Zofran as needed. PHYSICAL EXAMINATION: VITAL SIGNS: Blood pressure 122/78, pulse in the 90s when I was in the room, respirations 20, O2 saturation 97% on room air, temperature 100.1. GENERAL: This is a well-developed obese male, in no acute distress. HEENT: Pupils equal, round, and reactive to light. Oropharynx clear without lesions, erythema, or exudate. NECK: Supple. No lymphadenopathy. No thyroid nodules or enlargement. HEART: Regular rate and rhythm. No murmurs, rubs, or gallops. LUNGS: Clear to auscultation bilaterally. No wheezes, crackles, or rhonchi. ABDOMEN: Soft, nontender to palpation. Normoactive bowel sounds. No hepatosplenomegaly or other masses. EXTREMITIES: No clubbing, cyanosis, or edema. SKIN: No rashes or other lesions noted. NEUROLOGICAL: The patient has intact strength and sensation in all extremities. No facial droop. PSYCHIATRIC: Alert and oriented x3. Normal mood and affect. LABORATORY DATA: White blood cell count 14.6, hemoglobin 12.8, hematocrit 40.1, platelet count 289, 85% neutrophils. Complete metabolic panel is notable for carbon dioxide of 21, creatinine of 1.3, which is up from his baseline of about 1.1 to 1.2. Creatine kinase 664. The rest was normal. Lactic acid was negative x1. Troponin was negative x1. Urinalysis showed 100 protein, 3+ blood, positive large leuk esterase, greater than 50 rbc's and greater than 50 white blood cells and 2+ bacteria. Chest x-ray, I did review the chest x-ray done in the emergency room along with the radiologist's report, does show normal heart size. No pneumonia or evidence of acute cardiopulmonary process. EKG, I did review the EKG done in the emergency room, shows normal sinus rhythm at about 90 beats per minute without any significant ST-segment changes and no atrial arrhythmias. ASSESSMENT: 1. Urinary tract infection with mild sepsis. We will continue Rocephin from the emergency room. Cultures of blood and urine are pending. We will give IV fluids and admit the patient to the medical floor, likely need to be in the hospital for a couple of days to get on top of the infection well. 2. History of urethral stricture, now with some worsening difficulty urinating. We will consult Dr. Sanchez to take look and see if he needs further interventions or if this is related to his urinary tract infection. 3. Coronary artery disease, stable. Resume home medications. 4. Hypertension. Resume home antihypertensives. 5. History of paroxysmal atrial fibrillation. We will continue the patient's Xarelto for now, though if he starts to produce too much bleeding and clots, we may need to hold it for a while. Right now, he does have some blood in the urine, but is not a massive amount. 6. Gastrointestinal prophylaxis. We will continue the patient's proton pump inhibitor. 7. Code status. The patient is full code. His sister is his medical decision maker should he be incapacitated. Job ID: [id number]
[2019-09-15] MEDS ORDERED: Senokot S 8.6-50 MG TAB PO PRN (19:38)
[2019-09-15] MEDS ORDERED: Acetaminophen 650 MG Suppository PR PRN (19:38)
[2019-09-15] MEDS ORDERED: Guaifenesin DM 100-10/5 ML UDCUP PO PRN (19:38)
[2019-09-15] MEDS ORDERED: Ondansetron PF 4 MG/2 ML Vial IVP PRN (19:38)
[2019-09-15] MEDS ORDERED: Ondansetron ODT 4 MG TAB PO PRN (19:38)
[2019-09-15 19:47] VITALS: BMI 41.7
[2019-09-15] MEDS: Sodium Chloride 0.45% 1,000 ML IV SCH (20:22)
[2019-09-15] MEDS: Atorvastatin Calcium 20 MG TAB PO SCH (20:24)
[2019-09-15] MEDS: Mirtazapine 15 MG TAB PO SCH (20:24)
[2019-09-16] MEDS: Acetaminophen 325 MG TAB PO PRN ×3 (00:06→16:13)
[2019-09-16 05:51] LABS: #Eosinphils 0.2 thou/uL (0.0-0.7); #Lymphocytes 1.7 thou/uL (1.20-3.40); #Monocytes 1.4 thou/uL (0.11-0.59); #Neutrophils 15.3 thou/uL (1.40-6.50); %Basophils 0.2 % (0.0-1.0); %Eosinophils 0.9 % (0.0-10.0); %Lymphocytes 9.3 % (21.0-51.0); %Monocytes 7.4 % (0.0-10.0); %Neutrophils 82.2 % (42.0-75.0); Hemoglobin 11.7 g/dL (14.0-18.0); Mean Corpuscular HGB CONC 34.3 g/dL (32.0-36.0); Mean Corpuscular Hemoglobin 34.6 pg (27.0-31.0); Mean Platelet Volume 7.5 fL (7.4-10.4); Platelet Count 254 thou/uL (130-400); RBC Distribution Width 13.6 % (11.5-14.5); Red Blood Cell (RBC) Count 3.39 mill/uL (4.70-6.10); White Blood Cell (WBC) Count 18.6 thou/uL (4.8-10.8)
[2019-09-16 06:16] LABS: Anion Gap 13 mmol/L (10-20); BUN (Urea Nitrogen) 15 mg/dL (8.4-25.7); Calc. Creatinine Clearance 90 mL/min (70-130); Calcium 8.8 mg/dL (7.8-10.44); Carbon Dioxide 24 mmol/L (23-31); Chloride 106 mmol/L (98-107); Estimated GFR-MDRD 62; Glucose 87 mg/dL (80-115); Potassium 3.5 mmol/L (3.5-5.1); Sodium 139 mmol/L (136-145)
[2019-09-16] MEDS: Isosorbide Mononitrate (ER) 30 MG TAB PO SCH (08:25)
[2019-09-16] MEDS: Amlodipine 5 MG TAB PO SCH (08:26)
[2019-09-16] MEDS: Gabapentin 100 MG CAP PO SCH (08:26)
[2019-09-16] MEDS: Carvedilol 6.25 MG TAB PO SCH ×2 (08:26→16:13)
[2019-09-16] MEDS: Lisinopril 20 MG TAB PO SCH (08:27)
[2019-09-16] MEDS: Sodium Chloride 0.45% 1,000 ML IV SCH (08:29)
[2019-09-16] MEDS ORDERED: Non-Formulary Item 1 EACH (Pravastatin Sodium [Pravastatin Sodium] 1 TAB) PO SCH (09:00)
--- NOTE | 2019-09-16 09:14 | PDOC.HOSPP ---
- Subjective Encounter Date: 09/16/19 Encounter Time: 11:30 Subjective: Patient feeling much better this AM. Some fever overnight. No pain this AM and urinating well. - Objective Vital Signs & Weight: Vital Signs (12 hours) Temp Pulse Resp BP Pulse Ox 09/16/19 08:26 93 09/16/19 07:30 98.6 F 93 18 122/77 95 09/16/19 04:15 97.9 F 88 20 125/76 98 09/16/19 00:04 100.1 F H 100 21 H 117/75 98 Weight Weight 266 lb 9 oz I&O: 09/15/19 09/16/19 09/17/19 06:59 06:59 06:59 Intake Total 1545 Output Total 550 Balance 995 Result Diagrams: 09/16/19 05:16 09/16/19 05:16 Additional Labs: Accuchecks 09/15/19 14:56 POC Glucose 122 H Hospitalist ROS - Review of Systems Constitutional: reports: fever. denies: chills Respiratory: denies: cough, shortness of breath Cardiovascular: denies: chest pain, palpitations Gastrointestinal: denies: nausea, vomiting, abdominal pain, diarrhea, constipation Genitourinary: denies: dysuria, hematuria - Medication Medications: Active Medications Generic Name Dose Route Start Last Admin Trade Name Freq PRN Reason Stop Dose Admin Acetaminophen 650 mg 09/15/19 19:38 09/16/19 08:27 Tylenol PO 650 mg Q4H PRN Administration Headache/Fever/Mild Pain (1-3) Amlodipine Besylate 2.5 mg 09/16/19 09:00 09/16/19 08:26 Norvasc PO 2.5 mg DAILY ZARA Administration Atorvastatin Calcium 20 mg 09/15/19 21:00 09/15/19 20:24 Lipitor PO 20 mg HS ZARA Administration Carvedilol 6.25 mg 09/16/19 08:00 09/16/19 08:26 Coreg PO 6.25 mg BID-WM ZARA Administration Gabapentin 100 mg 09/16/19 09:00 09/16/19 08:26 Neurontin PO 100 mg DAILY ZARA Administration Sodium Chloride 1,000 mls @ 75 mls/hr 09/15/19 19:38 09/16/19 08:29 1/2 Normal Saline IV 1,000 mls .[id number] ZARA Administration Isosorbide Mononitrate 30 mg 09/16/19 09:00 09/16/19 08:25 Imdur Er PO 30 mg DAILY ZARA Administration Lisinopril 20 mg 09/16/19 09:00 09/16/19 08:27 Zestril PO 20 mg QAM ZARA Administration Mirtazapine 7.5 mg 09/15/19 21:00 09/15/19 20:24 Remeron PO 7.5 mg HS ZARA Administration Pantoprazole Sodium 40 mg 09/16/19 09:00 09/16/19 08:27 Protonix PO 40 mg DAILY ZARA Administration Sertraline HCl 25 mg 09/16/19 09:00 09/16/19 08:26 Zoloft PO 25 mg DAILY ZARA Administration - Exam General Appearance: NAD, awake alert Eye: anicteric sclera ENT: moist mucosa Heart: RRR, no murmur, no gallops, no rubs Respiratory: CTAB, no wheezes, no rales, no ronchi Gastrointestinal: soft, non-tender, non-distended, normal bowel sounds Neurological: no focal deficits Psychiatric: normal affect, normal behavior, A&O x 3 Hosp A/P (1) UTI (urinary tract infection) Status: Acute (2) Sepsis Code(s): A41.9 - SEPSIS, UNSPECIFIED ORGANISM Status: Acute (3) Acute on chronic renal failure Code(s): N17.9 - ACUTE KIDNEY FAILURE, UNSPECIFIED; N18.9 - CHRONIC KIDNEY DISEASE, UNSPECIFIED Status: Acute (4) Urethral stricture Code(s): N35.9 - URETHRAL STRICTURE, UNSPECIFIED * DO NOT USE * Status: Chronic (5) Paroxysmal A-fib Code(s): I48.0 - PAROXYSMAL ATRIAL FIBRILLATION Status: Chronic (6) Chronic anticoagulation Code(s): Z79.01 - USP (CURRENT) USE OF ANTICOAGULANTS Status: Chronic (7) CAD (coronary artery disease) Code(s): I25.10 - ATHSCL HEART DISEASE OF [place] CORONARY ARTERY W/O ANG PCTRS Status: Acute (8) Dyslipidemia Code(s): E78.5 - HYPERLIPIDEMIA, UNSPECIFIED Status: Chronic (9) GERD (gastroesophageal reflux disease) Code(s): K21.9 - GASTRO-ESOPHAGEAL REFLUX DISEASE WITHOUT ESOPHAGITIS Status: Chronic (10) Hypertension Code(s): I10 - ESSENTIAL (PRIMARY) HYPERTENSION Status: Chronic - Plan continue antibiotics On Rocephin since 09/14/2019, WBC remains elevated, low grade temp overnight Continue IV fluids Blood and urine cultures pending Consulted Dr. Sanchez about urethral stricture, any procedure will likely need to be done outpatient DVT proph: on chronic Xarelto GI proph: continue PPI
[2019-09-16] MEDS: Rivaroxaban 10 MG TAB PO SCH (09:51)
--- NOTE | 2019-09-16 16:05 | CON ---
DATE OF CONSULTATION: 09/16/2019 CONSULTING: Dr. Pacheco. CONSULTED: Dr. Sanchez. REASON FOR CONSULTATION: Urinary tract infection with history of urethroplasty. HISTORY OF PRESENT ILLNESS: Mr. Katz is a 64-year-old black male, who is well known to me for history of previous urethral stricture disease. He had undergone previous endoscopic surgeries, which were unsuccessful. When he came to see me, I had recommended urethroplasty, which he successfully did last year. His postoperative course was complicated by myocardial infarction for which he was hospitalized and is now currently taking Eliquis for. He did urinate very well postoperatively and states the stream was very good. More recently, he states his stream had started to become a little slow and becoming not bothersome to him, but just slower than where had been postoperatively. He developed some hematuria and started to feel bad and then began having dysuria. When he started having nausea and some fevers, he came to the ER where he was found to have a urinary tract infection and tachycardia, but without arrhythmia. He does have a history of atrial fibrillation, but was found to be in sinus rhythm. He was started on antibiotics and stated that after starting the antibiotics, he started feeling much better. He currently has no complaints with his urinary stream and states everything is good. His hematuria has stopped. His dysuria has also stopped. ALLERGIES: NONE. HOME MEDICATIONS: 1. Lisinopril. 2. Amlodipine. 3. Pravastatin. 4. Xarelto. 5. Carvedilol. 6. Zolpidem. 7. Gabapentin. 8. Naproxen. 9. Hydrochlorothiazide. 10. Omeprazole. 11. Latuda. 12. Sertraline. 13. Mirtazapine. 14. Imdur. 15. Zofran as needed. PAST MEDICAL HISTORY: 1. Paroxysmal atrial fibrillation, on chronic anticoagulation. 2. Coronary artery disease with inoperable stenosis. 3. Hypertension. 4. Gastroesophageal reflux disease. 5. BPH. 6. Urethral stricture disease. 7. Chronic lower back pain. 8. Obstructive sleep apnea treated with CPAP machine. SOCIAL HISTORY: The patient lives in [facility]. He continues to smoke, but denies alcohol or illicit drug use. FAMILY HISTORY: Significant for coronary artery disease, but not for urologic disease. REVIEW OF SYSTEMS: A 12-point review of systems reviewed and currently is negative as reported by the patient. PHYSICAL EXAMINATION: VITAL SIGNS: Temperature 98.4, pulse 84, respirations 18, blood pressure 111/68, saturation 98% on room air. GENERAL: No apparent distress, communicative, alert, appears stated age, well nourished, well developed. HEENT: Normocephalic, atraumatic. Pupils are symmetric and round. Trachea midline. Moist mucous membranes. CARDIOVASCULAR: Regular rate and rhythm. Normal S1 and S2. Symmetric pulses. CHEST: No increased work of breathing. Symmetric expansion. LUNGS: Clear anteriorly. ABDOMEN: Soft, nontender, nondistended. Positive bowel sounds. : The patient does not have a catheter. Penis is otherwise unremarkable. Testes are bilaterally descended. Perineal incision has fully healed. EXTREMITIES: No clubbing, cyanosis, or edema. SKIN: Warm and dry. No rashes or lesions. Good turgor. MUSCULOSKELETAL: No joint deformities or joint erythema noted. Good range of motion. NEUROLOGIC: Cranial nerves 2 through 12 are grossly intact. No focal or sensory motor deficits identified. PSYCHIATRIC: Alert and oriented x3. Appropriate mood and affect. LABORATORY EVALUATION: Full set of labs are in the [employer] system, which I have reviewed. Of note, the patient's white count is 18.6, hemoglobin 11.7. Creatinine of 1.4. Urinalysis demonstrates 2+ bacteria, greater than 50 white cells and red cells, nitrite negative. Urine culture preliminarily is growing multiple bacteria. Isolation is currently in progress. Blood cultures are negative thus far. ASSESSMENT AND PLAN: A 64-year-old black male with elevated white count, tachycardia, possible fevers, indicating systemic inflammatory response syndrome criteria, possible early sepsis although. Thus far, blood cultures have been negative. His urine does look suspicious and concerning for urinary tract infection. If this is indeed the case with his hematuria and dysuria, I would strongly recommend a cystoscopy but not until his urinary tract infection is cleared. He does report voiding adequately. Therefore, there is no need for emergent evaluation. I would recommend that his urinary tract infection be completely treated after which time, we will plan for an outpatient cystoscopy. If he does have a stricture recurrence, we will discuss treatment based on the severity and the location of potential recurrence. If there is no stricture, then it possibly may be due to benign prostatic hypertrophy and we can discuss treatment of this separately. For now, I would recommend treatment for a complicated urinary tract infection, which would be at least 7 days of antibiotics. Treatment can be tapered based on culture results. No further treatment in the hospital is necessary or workup is necessary for the urethral stricture as I would wait for his infection to be cleared before any procedural based intervention. Job ID: [id number]
[2019-09-16] MEDS: cefTRIAXone\\ROCEPHIN 1 GM in Sodium Chloride 0.9% 100 ML IVPB SCH (16:53)
[2019-09-16] MEDS: Atorvastatin Calcium 20 MG TAB PO SCH (20:40)
[2019-09-16] MEDS: Mirtazapine 15 MG TAB PO SCH (20:40)
[2019-09-16] MEDS: Zolpidem Tartrate 5 MG TAB PO SCH (20:40)
[2019-09-16] MEDS ORDERED: Non-Formulary Item 1 EACH (Zolpidem Tartrate [Zolpidem Tartrate] 10 MG) PO SCH (21:00)
[2019-09-16] MEDS ORDERED: FLU VACC TS2019-20(65YR UP)/PF 180 MCG/0.5 ML SYRINGE IM ONE (21:00)
[2019-09-16] MEDS ORDERED: Prevnar 13-Val Conj/PF 0.5 ML SYRINGE IM ONE (21:00)
[2019-09-17 05:39] LABS: #Eosinphils 0.2 thou/uL (0.0-0.7); #Lymphocytes 1.4 thou/uL (1.20-3.40); #Monocytes 1.2 thou/uL (0.11-0.59); #Neutrophils 14.7 thou/uL (1.40-6.50); %Basophils 0.2 % (0.0-1.0); %Eosinophils 1.2 % (0.0-10.0); %Lymphocytes 8.2 % (21.0-51.0); %Monocytes 6.9 % (0.0-10.0); %Neutrophils 83.5 % (42.0-75.0); Hemoglobin 11.5 g/dL (14.0-18.0); Mean Corpuscular HGB CONC 33.6 g/dL (32.0-36.0); Mean Corpuscular Hemoglobin 33.7 pg (27.0-31.0); Mean Platelet Volume 7.5 fL (7.4-10.4); Platelet Count 230 thou/uL (130-400); RBC Distribution Width 13.5 % (11.5-14.5); Red Blood Cell (RBC) Count 3.41 mill/uL (4.70-6.10); White Blood Cell (WBC) Count 17.6 thou/uL (4.8-10.8)
[2019-09-17 06:01] LABS: Anion Gap 12 mmol/L (10-20); BUN (Urea Nitrogen) 13 mg/dL (8.4-25.7); Calc. Creatinine Clearance 100 mL/min (70-130); Calcium 8.9 mg/dL (7.8-10.44); Carbon Dioxide 23 mmol/L (23-31); Chloride 107 mmol/L (98-107); Estimated GFR-MDRD 70; Glucose 90 mg/dL (80-115); Potassium 3.5 mmol/L (3.5-5.1); Sodium 138 mmol/L (136-145)
[2019-09-17] MEDS: Carvedilol 6.25 MG TAB PO SCH ×2 (08:03→16:16)
[2019-09-17] MEDS: Amlodipine 5 MG TAB PO SCH (08:03)
[2019-09-17] MEDS: Isosorbide Mononitrate (ER) 30 MG TAB PO SCH (08:04)
[2019-09-17] MEDS: Sodium Chloride 0.45% 1,000 ML IV SCH ×2 (08:04→13:18)
[2019-09-17] MEDS: Rivaroxaban 10 MG TAB PO SCH (08:04)
[2019-09-17] MEDS: Gabapentin 100 MG CAP PO SCH (08:04)
[2019-09-17] MEDS: Lisinopril 20 MG TAB PO SCH (08:04)
[2019-09-17] MEDS ORDERED: Polyethylene Glycol 3350 17 GM Packet PO PRN (12:43)
[2019-09-17] MEDS: cefTRIAXone\\ROCEPHIN 1 GM in Sodium Chloride 0.9% 100 ML IVPB SCH (16:16)
--- NOTE | 2019-09-17 18:54 | PDOC.HOSPP ---
- Subjective Encounter Date: 09/17/19 Encounter Time: 12:00 Subjective: Patient seen and examined for Sepsis. Dysuria +. Hematuria clearing. No fever or chills. No new complaints. No overnight events - Objective Vital Signs & Weight: Vital Signs (12 hours) Temp Pulse Resp BP BP Pulse Ox 09/17/19 16:16 143/88 H 09/17/19 15:00 99.2 F 96 95 H 111/76 18 L 09/17/19 12:00 98.5 F 91 14 104/66 95 09/17/19 08:03 91 122/73 09/17/19 07:10 98 F 91 16 92 L Weight Weight 266 lb 9 oz I&O: 09/16/19 09/17/19 09/18/19 06:59 06:59 06:59 Intake Total 1545 1860 1830 Output Total 550 700 900 Balance 995 1160 930 Result Diagrams: 09/17/19 05:15 09/17/19 05:15 Radiology Reviewed by me: Yes (CXR -no infiltrate) Hospitalist ROS - Review of Systems Respiratory: denies: cough, dry, shortness of breath, hemoptysis, SOB with excertion, pleuritic pain, sputum, wheezing, other Cardiovascular: denies: chest pain, palpitations, orthopnea, paroxysmal noc. dyspnea, edema, light headedness, other - Medication Medications: Active Medications Generic Name Dose Route Start Last Admin Trade Name Freq PRN Reason Stop Dose Admin Acetaminophen 650 mg 09/15/19 19:38 09/16/19 16:13 Tylenol PO 650 mg Q4H PRN Administration Headache/Fever/Mild Pain (1-3) Amlodipine Besylate 2.5 mg 09/16/19 09:00 09/17/19 08:03 Norvasc PO 2.5 mg DAILY ZARA Administration Atorvastatin Calcium 20 mg 09/15/19 21:00 09/16/19 20:40 Lipitor PO 20 mg HS ZARA Administration Carvedilol 6.25 mg 09/16/19 08:00 09/17/19 16:16 Coreg PO 6.25 mg BID-WM ZARA Administration Gabapentin 100 mg 09/16/19 09:00 09/17/19 08:04 Neurontin PO 100 mg DAILY ZARA Administration Ceftriaxone Sodium 1 gm/ 100 mls @ 200 mls/hr 09/16/19 16:00 09/17/19 16:16 Sodium Chloride IVPB 100 mls Q24HR ZARA Administration Sodium Chloride 1,000 mls @ 30 mls/hr 09/17/19 12:40 09/17/19 13:18 1/2 Normal Saline IV Not Given .Q24H ZARA Isosorbide Mononitrate 30 mg 09/16/19 09:00 09/17/19 08:04 Imdur Er PO 30 mg DAILY ZARA Administration Lisinopril 20 mg 09/16/19 09:00 09/17/19 08:04 Zestril PO 20 mg QAM ZARA Administration Mirtazapine 7.5 mg 09/15/19 21:00 09/16/19 20:40 Remeron PO 7.5 mg HS ZARA Administration Pantoprazole Sodium 40 mg 09/16/19 09:00 09/17/19 08:04 Protonix PO 40 mg DAILY ZARA Administration Ranolazine 500 mg 09/16/19 21:00 09/17/19 08:04 Ranexa PO 500 mg BID ZARA Administration Rivaroxaban 20 mg 09/16/19 09:00 09/17/19 08:04 Xarelto PO 20 mg QAM ZARA Administration Sertraline HCl 25 mg 09/16/19 09:00 09/17/19 08:04 Zoloft PO 25 mg DAILY ZARA Administration Zolpidem Tartrate 10 mg 09/16/19 21:00 09/16/19 20:40 Ambien PO 10 mg HS ZARA Administration - Exam General Appearance: NAD Heart: RRR, no gallops, normal peripheral pulses Respiratory: no wheezes, no rales, no ronchi Gastrointestinal: soft, non-tender, non-distended, normal bowel sounds Extremities: no clubbing Hosp A/P - Plan Sepsis due to UTI Dysuria/Hematuria KENY on CKD 2 Urethral stricture Par afib - on chronic anticoag Morbid obesity BMI 41.7 Anxiety PLAN: Cont Ceftriaxone Still has Leucocytosis Await urine culture Cont Xarelto Cont Coreg AM labs
[2019-09-17] MEDS: guaiFENesin ER 600 MG TAB PO SCH (21:10)
[2019-09-17] MEDS: Saccharomyces boulardii 250 MG CAP PO SCH (21:11)
[2019-09-17] MEDS: Docusate 100 MG CAP PO SCH (21:11)
[2019-09-17] MEDS: Mirtazapine 15 MG TAB PO SCH (21:11)
[2019-09-17] MEDS: Zolpidem Tartrate 5 MG TAB PO SCH (21:11)
[2019-09-17] MEDS: Atorvastatin Calcium 20 MG TAB PO SCH (21:12)
[2019-09-18 06:38] LABS: #Eosinphils 0.2 thou/uL (0.0-0.7); #Lymphocytes 1.3 thou/uL (1.20-3.40); #Monocytes 1.2 thou/uL (0.11-0.59); #Neutrophils 9.2 thou/uL (1.40-6.50); %Basophils 0.3 % (0.0-1.0); %Eosinophils 1.6 % (0.0-10.0); %Lymphocytes 10.7 % (21.0-51.0); %Monocytes 10.1 % (0.0-10.0); %Neutrophils 77.3 % (42.0-75.0); Hemoglobin 11.2 g/dL (14.0-18.0); Mean Corpuscular HGB CONC 33.7 g/dL (32.0-36.0); Mean Corpuscular Hemoglobin 33.8 pg (27.0-31.0); Platelet Count 233 thou/uL (130-400); RBC Distribution Width 13.7 % (11.5-14.5); Red Blood Cell (RBC) Count 3.32 mill/uL (4.70-6.10); White Blood Cell (WBC) Count 11.9 thou/uL (4.8-10.8)
[2019-09-18 06:57] LABS: ALT (SGPT) 36 U/L (8-55); AST (SGOT) 38 U/L (5-34); Albumin 3.8 g/dL (3.4-4.8); Alkaline Phosphatase 80 U/L (40-110); Anion Gap 13 mmol/L (10-20); BUN (Urea Nitrogen) 17 mg/dL (8.4-25.7); Bilirubin, Total 0.7 mg/dL (0.2-1.2); CK (CPK) 402 U/L (30-200); Calc. Creatinine Clearance 96 mL/min (70-130); Calcium 9.1 mg/dL (7.8-10.44); Carbon Dioxide 23 mmol/L (23-31); Chloride 106 mmol/L (98-107); Estimated GFR-MDRD 67; Globulin 3.6 g/dL (2.4-3.5); Glucose 83 mg/dL (80-115); Potassium 3.5 mmol/L (3.5-5.1); Protein, Total 7.4 g/dL (5.8-8.1); Sodium 138 mmol/L (136-145)
[2019-09-18] MEDS: Docusate 100 MG CAP PO SCH ×2 (08:38→20:35)
[2019-09-18] MEDS: Amlodipine 5 MG TAB PO SCH (08:38)
[2019-09-18] MEDS: Gabapentin 100 MG CAP PO SCH (08:40)
[2019-09-18] MEDS: Lisinopril 20 MG TAB PO SCH (08:40)
[2019-09-18] MEDS: Isosorbide Mononitrate (ER) 30 MG TAB PO SCH (08:40)
[2019-09-18] MEDS: Folic Acid 1 MG TAB PO SCH (08:41)
[2019-09-18] MEDS: Carvedilol 6.25 MG TAB PO SCH ×2 (08:41→16:24)
[2019-09-18] MEDS: Cyanocobalamin (Vitamin B-12) 1,000 MCG TAB PO SCH (08:41)
[2019-09-18] MEDS: Rivaroxaban 10 MG TAB PO SCH (08:41)
[2019-09-18] MEDS: guaiFENesin ER 600 MG TAB PO SCH ×2 (08:41→20:37)
--- NOTE | 2019-09-18 13:00 | PDOC.HOSPP ---
- Subjective Subjective: pt is sleeping, on awakening appropriate response, urinal --dark urine. hgb stable at 11.9, on xarelto - Objective Vital Signs & Weight: Vital Signs (12 hours) Temp Pulse Resp BP BP Pulse Ox 09/18/19 11:08 98.4 F 83 18 99/67 95 09/18/19 10:13 96 09/18/19 08:41 143/88 H 09/18/19 08:40 143/88 H 09/18/19 08:38 78 09/18/19 08:00 96 09/18/19 07:27 98.4 F 78 17 144/90 H 96 Weight Weight 266 lb 9 oz I&O: 09/17/19 09/18/19 09/19/19 06:59 06:59 06:59 Intake Total 1860 2590 Output Total 700 1650 Balance 1160 940 Result Diagrams: 09/18/19 05:59 09/18/19 05:59 Hospitalist ROS - Medication Medications: Active Medications Generic Name Dose Route Start Last Admin Trade Name Freq PRN Reason Stop Dose Admin Acetaminophen 650 mg 09/15/19 19:38 09/16/19 16:13 Tylenol PO 650 mg Q4H PRN Administration Headache/Fever/Mild Pain (1-3) Amlodipine Besylate 2.5 mg 09/16/19 09:00 09/18/19 08:38 Norvasc PO 2.5 mg DAILY ZARA Administration Atorvastatin Calcium 20 mg 09/15/19 21:00 09/17/19 21:12 Lipitor PO 20 mg HS ZARA Administration Carvedilol 6.25 mg 09/16/19 08:00 09/18/19 08:41 Coreg PO 6.25 mg BID-WM ZARA Administration Cyanocobalamin 1,000 mcg 09/18/19 09:00 09/18/19 08:41 Vitamin B-12 PO 1,000 mcg DAILY ZARA Administration Docusate Sodium 100 mg 09/17/19 21:00 09/18/19 08:38 Colace PO 100 mg BID ZARA Administration Folic Acid 1 mg 09/18/19 09:00 09/18/19 08:41 Folvite PO 1 mg DAILY ZARA Administration Gabapentin 100 mg 09/16/19 09:00 09/18/19 08:40 Neurontin PO 100 mg DAILY ZARA Administration Guaifenesin 600 mg 09/17/19 21:00 09/18/19 08:41 Mucinex PO 600 mg Q12HR ZARA Administration Ceftriaxone Sodium 1 gm/ 100 mls @ 200 mls/hr 09/16/19 16:00 09/17/19 16:16 Sodium Chloride IVPB 100 mls Q24HR ZARA Administration Sodium Chloride 1,000 mls @ 30 mls/hr 09/17/19 12:40 09/17/19 13:18 1/2 Normal Saline IV Not Given .Q24H ZARA Isosorbide Mononitrate 30 mg 09/16/19 09:00 09/18/19 08:40 Imdur Er PO 30 mg DAILY ZARA Administration Lisinopril 20 mg 09/16/19 09:00 09/18/19 08:40 Zestril PO 20 mg QAM ZARA Administration Mirtazapine 7.5 mg 09/15/19 21:00 09/17/19 21:11 Remeron PO 7.5 mg HS ZARA Administration Pantoprazole Sodium 40 mg 09/16/19 09:00 09/18/19 08:38 Protonix PO 40 mg DAILY ZARA Administration Ranolazine 500 mg 09/16/19 21:00 09/18/19 08:38 Ranexa PO 500 mg BID ZARA Administration Rivaroxaban 20 mg 09/16/19 09:00 09/18/19 08:41 Xarelto PO 20 mg QAM ZARA Administration Saccharomyces Boulardii 250 mg 09/17/19 21:00 09/17/19 21:11 Florastor PO 250 mg HS ZARA Administration Sertraline HCl 25 mg 09/16/19 09:00 09/18/19 08:38 Zoloft PO 25 mg DAILY ZARA Administration Zolpidem Tartrate 10 mg 09/16/19 21:00 09/17/19 21:11 Ambien PO 10 mg HS ZARA Administration - Exam General Appearance: NAD, awake alert, ill appearing Neck: supple, symmetric, no JVD, no thyromegaly, no lymphadenopathy, no carotid bruit, JVD Heart: RRR, no murmur, no gallops, no rubs, normal peripheral pulses, irregular , diminshed peripheral pulses, murmur present, II/IV, III/IV Respiratory: CTAB, no wheezes, no rales Gastrointestinal: soft, non-distended, normal bowel sounds Neurological: no focal deficits Psychiatric: normal affect Hosp A/P - Plan Sepsis due to UTI Dysuria/Hematuria KENY on CKD 2 Urethral stricture --urine racheal --mixed diana -bl cx neg - on ctx. - will change to PO, after 48hrs of IV abx, if racheal cont'd to be as above. -avoid nephrotoxic Mild leukocytosis - fw the trend d/t UTI Par afib - on chronic anticoag -xarelto HTN -on coreg, controlled. Morbid obesity BMI 41.7 Anxiety dispo - home in 1 to 2 days.
[2019-09-18] MEDS: Sodium Chloride 0.45% 1,000 ML IV SCH (13:37)
[2019-09-18] MEDS: cefTRIAXone\\ROCEPHIN 1 GM in Sodium Chloride 0.9% 100 ML IVPB SCH (16:24)
[2019-09-18] MEDS: Mirtazapine 15 MG TAB PO SCH (20:36)
[2019-09-18] MEDS: Saccharomyces boulardii 250 MG CAP PO SCH (20:37)
[2019-09-18] MEDS: Atorvastatin Calcium 20 MG TAB PO SCH (20:37)
[2019-09-18] MEDS: Zolpidem Tartrate 5 MG TAB PO SCH (20:38)
[2019-09-19 06:14] LABS: #Basophils 0.1 thou/uL (0.0-0.2); #Eosinphils 0.2 thou/uL (0.0-0.7); #Lymphocytes 1.7 thou/uL (1.20-3.40); #Monocytes 1.2 thou/uL (0.11-0.59); #Neutrophils 5.3 thou/uL (1.40-6.50); %Basophils 0.9 % (0.0-1.0); %Eosinophils 2.9 % (0.0-10.0); %Lymphocytes 19.6 % (21.0-51.0); %Monocytes 14.4 % (0.0-10.0); %Neutrophils 62.1 % (42.0-75.0); Hemoglobin 11.7 g/dL (14.0-18.0); Mean Corpuscular HGB CONC 32.8 g/dL (32.0-36.0); Mean Corpuscular Hemoglobin 33.3 pg (27.0-31.0); Mean Platelet Volume 7.6 fL (7.4-10.4); Platelet Count 268 thou/uL (130-400); RBC Distribution Width 13.9 % (11.5-14.5); White Blood Cell (WBC) Count 8.5 thou/uL (4.8-10.8)
[2019-09-19 06:32] LABS: Anion Gap 14 mmol/L (10-20); BUN (Urea Nitrogen) 17 mg/dL (8.4-25.7); Calc. Creatinine Clearance 106 mL/min (70-130); Calcium 9.1 mg/dL (7.8-10.44); Carbon Dioxide 22 mmol/L (23-31); Chloride 106 mmol/L (98-107); Estimated GFR-MDRD 74; Glucose 84 mg/dL (80-115); Potassium 3.7 mmol/L (3.5-5.1); Sodium 138 mmol/L (136-145)
[2019-09-19] MEDS: Rivaroxaban 10 MG TAB PO SCH (08:48)
[2019-09-19] MEDS: Isosorbide Mononitrate (ER) 30 MG TAB PO SCH (08:48)
[2019-09-19] MEDS: Lisinopril 20 MG TAB PO SCH (08:49)
[2019-09-19] MEDS: Amlodipine 5 MG TAB PO SCH (08:49)
[2019-09-19] MEDS: guaiFENesin ER 600 MG TAB PO SCH (08:49)
[2019-09-19] MEDS: Folic Acid 1 MG TAB PO SCH (08:49)
[2019-09-19] MEDS: Gabapentin 100 MG CAP PO SCH (08:49)
[2019-09-19] MEDS: Carvedilol 6.25 MG TAB PO SCH (08:49)
[2019-09-19] MEDS: Cyanocobalamin (Vitamin B-12) 1,000 MCG TAB PO SCH (08:50)
[2019-09-19] MEDS: Docusate 100 MG CAP PO SCH (08:50)
[2019-09-19 12:34] VITALS: BP 138/80; TEMP 97.7
[2019-09-19] MEDS: Sodium Chloride 0.45% 1,000 ML IV SCH (14:41)
--- NOTE | 2019-09-20 04:11 | DIS ---
DATE OF ADMISSION: 09/15/2019 DATE OF DISCHARGE: 09/19/2019 DISCHARGE DIAGNOSES: 1. Hematuria with underlying history of urethral strictures. 2. Sepsis due to urinary tract infection. 3. Dysuria and hematuria. 4. Leukocytosis secondary to urinary tract infection and acute stress. 5. Paroxysmal atrial fibrillation on chronic anticoagulation with Xarelto and rate controlled with Coreg. 6. Morbid Obesity with a BMI of 41.7. 7. Urinary tract infection and culture with mixed diana. DISCHARGE MEDICATIONS: 1. Norvasc 5 mg daily. 2. Augmentin 1 tablet twice a day for 7 days which is a new medication on discharge for urinary tract infection. 3. Coreg 6.25 mg twice a day. 4. Vitamin B12 stool softener. 5. Folic acid 1 mg daily. 6. Gabapentin 100 mg daily. 7. Hydrochlorothiazide 25 mg daily. 8. Isosorbide mononitrate 30 mg daily. 9. Lisinopril 20 mg daily. 10. Mirtazapine 7.5 mg at bedtime. 11. Ranolazine 500 mg twice a day. 12. Pravastatin 80 mg daily. 13. Xarelto 20 mg daily. 14. Sertraline 25 mg daily. PHYSICAL EXAMINATION: VITAL SIGNS: On the day of discharge, he is afebrile. His blood pressure is 156/99, temperature 97.7, pulse 93, and his repeat blood pressure is 138/80. GENERAL: The patient is alert and oriented x4. He is quite comfortable in ambulating. He does have a trace amount of blood during urination, which is chronic with underlying history of urethral strictures. Otherwise, he is quite hemodynamically stable. CARDIOVASCULAR: Regular rate and rhythm without murmurs, rubs, or gallops. LUNGS: Clear to auscultation bilaterally without wheezing, rales, or rhonchi. ABDOMEN: Soft, nontender, and nondistended. Good bowel sounds. EXTREMITIES: No noticeable pitting edema. HOSPITAL COURSE: This is a 64-year-old male with a history of urethral strictures, presented with dysuria as well as ongoing hematuria. Urology did see him. Dr. Sanchez decided to follow with him in the outpatient setting for cystoscopy after UTI has been treated. His urine culture grew mixed diana. Blood cultures negative. The patient is discharged with Augmentin for 7-day course. After he completed his antibiotics, he will follow with the Urology clinic. His hemoglobin is 11.7 on the day of discharge. His mild leukocytosis has improved, and white count is 8.5. Creatinine on admission was 1.40, improved to 1.19 prior to discharge. DISCHARGE INSTRUCTIONS: Activity: As tolerated. Diet: Healthy heart diet. Followup: With primary care physician in 1 week. Follow up with Urology Clinic 1 week after completing the antibiotic course. TIME SPENT: Discharge time took over 30 minutes. copy to PCP. Job ID: [id number] PANCHITO
== END 2019-09-19 15:00 | disposition home or self-care (01) | DRG 872 ==
LOC: ERS 13:50 → T4-A 19:37
PROVIDERS: ADMIT Emergency Medicine; ATTEND Emergency Medicine
DX: A41.9 Sepsis, unspecified organism (principal); N39.0 Urinary tract infection, site not specified; Z68.41 Body mass index [BMI] 40.0-44.9, adult; N17.9 Acute kidney failure, unspecified; B96.89 Other specified bacterial agents as the cause of diseases classified elsewhere; R31.9 Hematuria, unspecified; I48.0 Paroxysmal atrial fibrillation; E66.01 Morbid (severe) obesity due to excess calories; I25.10 Atherosclerotic heart disease of native coronary artery without angina pectoris; K21.9 Gastro-esophageal reflux disease without esophagitis; N40.0 Benign prostatic hyperplasia without lower urinary tract symptoms; G47.33 Obstructive sleep apnea (adult) (pediatric); F41.9 Anxiety disorder, unspecified; F31.9 Bipolar disorder, unspecified; E78.5 Hyperlipidemia, unspecified; I12.9 Hypertensive chronic kidney disease with stage 1 through stage 4 chronic kidney disease, or unspecified chronic kidney disease; N18.2 Chronic kidney disease, stage 2 (mild); Z79.01 Long term (current) use of anticoagulants; Z82.49 Family history of ischemic heart disease and other diseases of the circulatory system
CPT/HCPCS: 36415; 36416; 71045; 80048; 80053; 81003; 81015; 82550; 83605; 83735; 84484; 85025; 87040; 87086; 87804; 93005; 96361; 96365; 96367; J0696; J3370; J3490

== ENCOUNTER 2019-10-24 13:19 | Inpatient (IN) | payer MEDICARE, MEDICAID ==
[2019-10-24 14:00] LABS: #Lymphocytes 1.1 thou/uL (1.20-3.40); #Monocytes 0.6 thou/uL (0.11-0.59); #Neutrophils 7.9 thou/uL (1.40-6.50); %Basophils 0.3 % (0.0-1.0); %Eosinophils 0.1 % (0.0-10.0); %Monocytes 6.3 % (0.0-10.0); %Neutrophils 82.3 % (42.0-75.0); Hemoglobin 11.7 g/dL (14.0-18.0); Mean Corpuscular HGB CONC 35.2 g/dL (32.0-36.0); Mean Corpuscular Hemoglobin 35.7 pg (27.0-31.0); Mean Platelet Volume 7.4 fL (7.4-10.4); Platelet Count 250 thou/uL (130-400); Red Blood Cell (RBC) Count 3.28 mill/uL (4.70-6.10); White Blood Cell (WBC) Count 9.6 thou/uL (4.8-10.8)
[2019-10-24] MEDS ORDERED: cefTRIAXone\\ROCEPHIN 2 GM VIAL ONE (14:00)
[2019-10-24 14:06] LABS: Bilirubin Negative (Negative); Blood, Urine 1+ (Negative); Clarity Turbid (Clear); Glucose, Urine (Dipstick) Normal (Negative); Leukocyte 500 Leu/uL (Negative); Nitrite Negative (Negative); Protein, Urine (Dipstick) 50 mg/dL (Neg-Trace); Squamous Epithelial 0-3 HPF (0-3); Urobilinogen Normal mg/dL (Less than 2); WBC/HPF Greater than 50 HPF (0-3)
[2019-10-24] MEDS ORDERED: Acetaminophen 500 MG TAB ONE (14:10)
[2019-10-24 14:14] LABS: Bacteria/HPF 3+ HPF (None Seen); Sperm/HPF None Seen HPF (None Seen)
[2019-10-24 14:21] LABS: ALT (SGPT) 28 U/L (8-55); AST (SGOT) 30 U/L (5-34); Albumin 4.4 g/dL (3.4-4.8); Alkaline Phosphatase 72 U/L (40-110); Anion Gap 16 mmol/L (10-20); BUN (Urea Nitrogen) 21 mg/dL (8.4-25.7); Bilirubin, Total 0.7 mg/dL (0.2-1.2); Calc. Creatinine Clearance 0 mL/min (70-130); Calcium 9.3 mg/dL (7.8-10.44); Carbon Dioxide 20 mmol/L (23-31); Chloride 106 mmol/L (98-107); Estimated GFR-MDRD 56; Globulin 3.3 g/dL (2.4-3.5); Glucose 91 mg/dL (80-115); Potassium 3.9 mmol/L (3.5-5.1); Protein, Total 7.7 g/dL (5.8-8.1); Sodium 138 mmol/L (136-145)
[2019-10-24] MEDS ORDERED: Vancomycin 1.5 GRAM/300 ML BAG 1.5 GM in Premix Bag 1 BAG IVPB SCH (14:30)
--- NOTE | 2019-10-24 15:05 | RAD ---
PORTABLE CHEST: Date: 10/24/2019 HISTORY: Fever. FINDINGS: Lungs are clear of infiltrate. Mild vascular engorgement. Heart size upper normal but stable. IMPRESSION: No acute lung process. POS: [facility]
[2019-10-24 17:03] VITALS: BMI 41.1
[2019-10-24] MEDS ORDERED: Sodium Chloride 0.9% 1,000 ML IV SCH (17:15)
[2019-10-24] MEDS ORDERED: hydrALAZINE 20 MG/ML VIAL SLOW IVP PRN (19:23)
[2019-10-24] MEDS ORDERED: Acetaminophen 500 MG TAB PO PRN (19:23)
[2019-10-24] MEDS ORDERED: Ibuprofen 200 MG TAB PO PRN (19:23)
[2019-10-24] MEDS ORDERED: Benzonatate 100 MG CAP PO PRN (19:23)
[2019-10-24] MEDS ORDERED: Ondansetron ODT 4 MG TAB PO PRN (19:23)
[2019-10-24] MEDS ORDERED: Ondansetron PF 4 MG/2 ML Vial IVP PRN (19:23)
[2019-10-24] MEDS: Pravastatin Sodium 40 MG TAB PO SCH (21:05)
[2019-10-24] MEDS: Carvedilol 6.25 MG TAB PO SCH (21:05)
[2019-10-24] MEDS: Famotidine 20 MG TAB PO SCH (21:05)
[2019-10-24] MEDS: Mirtazapine 15 MG TAB PO SCH (21:05)
[2019-10-24] MEDS: Zolpidem Tartrate 5 MG TAB PO SCH (21:06)
[2019-10-24] MEDS: Sodium Chloride 0.9% 1,000 ML IV SCH (21:08)
--- NOTE | 2019-10-24 23:59 | HP ---
PRIMARY CARE PROVIDER: Tariq [place]. CHIEF COMPLAINT: Burning urination and chills. HISTORY OF PRESENT ILLNESS: This is a 64-year-old male, who presents to [facility] Emergency Department complaining of shaking chills, burning urination in the last 24 hours. The patient states he had a similar episode occur in late August 2019, requiring hospitalization for urethral stricture with associated sepsis and urinary tract infection. The patient was discharged home on Augmentin, which he completed a 7-day course into early part of September 2019. The patient states he had been doing well at home and was scheduled for followup with Urology Service after undergoing a bulbar urethral stricture resection with mucosal graft augmentation and urethroplasty in 2017. Urine culture obtained in August 2019 showed a mixed colony specimen without dominant organism. The patient states he had been doing well and suddenly developed symptoms of dysuria and feels that he may have been dehydrated with decreased oral intake. The patient began having shaking chills and had difficulty walking and standing upright at his home. The patient denied taking any home remedy and called EMS personnel for assistance. The patient was evaluated in the emergency room and met sepsis criteria with tachypnea and temperature of 103.7 degrees Fahrenheit. The patient received intravenous normal saline x3 L in addition to vancomycin and Rocephin. The patient was transferred to the medical floor for further evaluation. PAST MEDICAL HISTORY: 1. Urethral stricture with recurrent urinary tract infection. 2. History of sepsis secondary to urinary tract infection, August 2019. 3. Paroxysmal atrial fibrillation, on chronic anticoagulation with Xarelto. 4. Morbid obesity. 5. Hypertension. 6. Coronary artery disease, medically managed. 7. Gastroesophageal reflux disease. 8. Benign prostatic hyperplasia. 9. Chronic back and neck pain. 10. Obstructive sleep apnea, on nocturnal CPAP. PAST SURGICAL HISTORY: 1. Status post urethroplasty with buccal mucosal augmentation. 2. Status post cardiac catheterization. 3. Status post cardiac stent placement in 2010. 4. Status post prostate surgery. 5. Status post back surgery. CURRENT MEDICATIONS: 1. Amlodipine 2.5 mg p.o. daily. 2. Coreg 6.25 mg p.o. b.i.d. 3. Hydrochlorothiazide 25 mg p.o. q.a.m. 4. Latuda 40 mg p.o. daily. 5. Omeprazole 40 mg p.o. daily. 6. Pravachol 80 mg p.o. q.a.m. 7. Zoloft 50 mg p.o. daily. 8. Ambien 10 mg p.o. at bedtime. 9. Gabapentin 100 mg p.o. daily. 10. Isosorbide mononitrate 30 mg p.o. daily. 11. Lisinopril 20 mg p.o. q.a.m. 12. Remeron 7.5 mg p.o. at bedtime. 13. Ranexa 500 mg p.o. b.i.d. 14. Xarelto 20 mg p.o. q.a.m. ALLERGIES: NO KNOWN DRUG ALLERGIES. FAMILY HISTORY: Positive for hypertension and coronary artery disease. SOCIAL HISTORY: Resides in [place], [place]. Smokes up to 1-1/2 packs of cigarettes daily. No alcohol or illicit drug use. Retired. REVIEW OF SYSTEMS: CONSTITUTIONAL: Negative for weight loss or gain, ability to conduct usual activities. SKIN: Negative for rash, itching. EYES: Negative for double vision, pain. ENT/MOUTH: Negative for nose bleeding, neck stiffness, pain, tenderness. CARDIOVASCULAR: Negative for palpitations, dyspnea on exertion, orthopnea. RESPIRATORY: Negative for shortness of breath, wheezing, cough, hemoptysis, fever or night sweats. GASTROINTESTINAL: Negative for poor appetite, abdominal pain, heartburn, nausea, vomiting, constipation, or diarrhea. GENITOURINARY: Negative for urgency, frequency, dysuria, nocturia. MUSCULOSKELETAL: Negative for pain, swelling. NEUROLOGIC/PSYCHIATRIC: Negative for anxiety, depression. ALLERGY/IMMUNOLOGIC: Negative for skin rash, bleeding tendency. Otherwise negative except as stated per HPI. PHYSICAL EXAMINATION: VITAL SIGNS: On admission, blood pressure 112/76, pulse 78, respiratory rate 18, temperature 98.1 degrees Fahrenheit, O2 saturation 94% on room air. GENERAL APPEARANCE: This is a 64-year-old male, alert and oriented x3, pleasant, responsive, in no acute distress. HEENT: Pupils are equal, round, reactive to light and accommodation. Extraocular muscles are intact. No scleral icterus. No conjunctival injection. Nares are patent. OP is clear. Teeth in fair repair. NECK: Supple. No cervical adenopathy. No thyromegaly. No carotid bruits. No JVD appreciated. Cervical spine with full active and passive range of motion. No meningeal signs noted. CHEST: Diminished breath sounds in the bases bilaterally. CARDIOVASCULAR: S1, S2 with a 1/6 systolic ejection murmur in the left upper sternal border. ABDOMEN: Obese, soft with mild tenderness to palpation in the suprapubic region. No palpable mass. No rebound or guarding appreciated. Bowel sounds are positive in all 4 quadrants. EXTREMITIES: Warm and dry with fair turgor. No clubbing, cyanosis, or asymmetric edema appreciated. Pulses palpable distally at the dorsalis pedis, posterior tibial, and popliteal arteries bilaterally. Capillary refill less than 2 seconds. NEUROLOGIC: Cranial nerves 2 through 12 are grossly intact. No focal or lateralizing signs appreciated. PERTINENT LABORATORY AND X-RAY FINDINGS: Sodium 138, potassium 3.9, chloride 106, CO2 of 20, BUN 21, creatinine 1.52, estimated GFR 56, glucose 91, lactic acid level 1.9, calcium 9.3. LFTs within normal limits. BNP 21.4. Troponin I negative x1. CBC showed a white blood cell count of 9.6, hemoglobin 12, hematocrit 33, MCV 101, platelet count 250 with 82% neutrophils. Influenza A and B antigen negative, 10/24/2019. Portable chest x-ray dated 10/24/2019 showed no acute infiltrates. EKG dated 10/24/2019 by my interpretation shows sinus mechanism with heart rates in the 90s. Normal R-wave progression noted in the precordial leads. Normal axis. No acute ST-T wave changes appreciated. ASSESSMENT AND PLAN: 1. Sepsis secondary to urinary tract infection. The patient will be admitted to the medical floor. Continue vancomycin 1.75 g IV q.12 hours with additional Rocephin 2 g IV q.24 hours. Urine and blood cultures pending. Continue intravenous normal saline at 100 mL/h. 2. Acute kidney injury on chronic kidney disease. We will continue IV fluids as outlined previously. Avoid nephrotoxic agents and limit contrast exposure. Repeat creatinine in the a.m. 3. Hypertension. Resume home blood pressure regimen and hold hydrochlorothiazide x24 hours. Serial blood pressure monitoring. 4. Chronic anticoagulation. Continue Xarelto 20 mg p.o. q.a.m. No evidence of active bleeding. 5. Tobacco abuse. Smoking cessation resources prior to discharge. 6. Prophylaxis. SCDs while in bed. Pepcid 20 mg p.o. b.i.d. CODE STATUS: Full. Surrogate medical decision maker is patient's sister. Job ID: [id number]
[2019-10-25] MEDS ORDERED: Vancomycin HCl 1.75 GM in Sodium Chloride 0.9% 250 ML 300 ML IVPB SCH (03:00)
[2019-10-25] MEDS: Sodium Chloride 0.9% 1,000 ML IV SCH ×3 (05:23→18:48)
[2019-10-25 06:09] LABS: Anion Gap 8 mmol/L (10-20); BUN (Urea Nitrogen) 18 mg/dL (8.4-25.7); Calc. Creatinine Clearance 98 mL/min (70-130); Calcium 8.8 mg/dL (7.8-10.44); Carbon Dioxide 25 mmol/L (23-31); Chloride 111 mmol/L (98-107); Estimated GFR-MDRD 70; Glucose 120 mg/dL (80-115); Potassium 3.9 mmol/L (3.5-5.1); Sodium 140 mmol/L (136-145)
[2019-10-25 07:28] LABS: Hemoglobin 11.2 g/dL (14.0-18.0); Mean Corpuscular HGB CONC 33.5 g/dL (32.0-36.0); Mean Corpuscular Hemoglobin 34.6 pg (27.0-31.0); Mean Platelet Volume 7.5 fL (7.4-10.4); Platelet Count 231 thou/uL (130-400); RBC Distribution Width 14.2 % (11.5-14.5); Red Blood Cell (RBC) Count 3.24 mill/uL (4.70-6.10); White Blood Cell (WBC) Count 5.7 thou/uL (4.8-10.8)
[2019-10-25 07:59] LABS: MDiff Complete? YES; Neutrophil 57 % (42-75)
[2019-10-25 08:00] LABS: Band 12 % (5-11); Lymphocytes 24 % (21-51); Macrocytosis SLIGHT = 6-15 cells (100X) (0-5/hpf); Monocytes 7 % (0-10); Platelet Morphology Comment Appears Adequate; Polychromasia SLIGHT = 2-3 cells (100X) (0-2/hpf)
[2019-10-25] MEDS: Rivaroxaban 10 MG TAB PO SCH (08:12)
[2019-10-25] MEDS: Famotidine 20 MG TAB PO SCH ×2 (08:13→20:45)
[2019-10-25] MEDS: Gabapentin 100 MG CAP PO SCH (08:13)
[2019-10-25] MEDS: Carvedilol 6.25 MG TAB PO SCH ×2 (08:13→20:45)
[2019-10-25] MEDS: Amlodipine 5 MG TAB PO SCH (08:13)
[2019-10-25] MEDS: Isosorbide Mononitrate (ER) 30 MG TAB PO SCH (08:13)
[2019-10-25] MEDS: cefTRIAXone\\ROCEPHIN 2 GM in Sodium Chloride 0.9% 100 ML IVPB SCH (13:00)
[2019-10-25] MEDS ORDERED: Vancomycin HCl 1.75 GM in Sodium Chloride 0.9% 500 ML IVPB SCH (15:00)
--- NOTE | 2019-10-25 16:33 | PDOC.HOSPP ---
- Subjective Encounter Date: 10/25/19 Encounter Time: 16:30 Subjective: f/u sepsis due to UTI on currently on Rocephin/Vancomycin with 1 of 2 Bloodcx + with GNR. Feels better overall. - Objective Vital Signs & Weight: Vital Signs (12 hours) Temp Pulse Resp BP BP Pulse Ox 10/25/19 15:30 98.5 F 74 16 132/70 93 L 10/25/19 11:30 98.4 F 72 16 131/83 93 L 10/25/19 08:13 143/89 H 97 10/25/19 07:51 97.8 F 74 18 143/89 H 97 10/25/19 05:29 98.1 F 73 18 121/75 95 Weight Weight 262 lb 3 oz I&O: 10/24/19 10/25/19 10/26/19 06:59 06:59 06:59 Intake Total 1550 Output Total 1600 Balance -50 Result Diagrams: 10/25/19 05:05 10/25/19 05:05 Additional Labs: Microbiology 10/24/19 13:48 Nasal swab Influenza Types A,B Direct EIA - Final 10/24/19 13:59 Venous blood - Right Hand Blood Culture - Preliminary Specimen has been received and culture in progress. No Growth to date. 10/24/19 13:51 Venous blood - Right Arm Blood Culture - Preliminary Gram Negative Stone 10/24/19 13:30 Urine voided Urine Culture - Preliminary Gram Negative Stone Laboratory Tests 10/24/19 10/24/19 10/24/19 13:51 13:51 13:51 Hgb 11.7 L Neutrophils % 82.3 H Neutrophils % (Manual) Band Neuts % (Manual) Creatinine 1.52 H Lactic Acid B-Natriuretic Peptide 21.4 10/24/19 10/25/19 13:51 05:05 Hgb Neutrophils % Neutrophils % (Manual) 57 Band Neuts % (Manual) 12 H Creatinine Lactic Acid 1.9 B-Natriuretic Peptide Hospitalist ROS - Medication Medications: Active Medications Generic Name Dose Route Start Last Admin Trade Name Freq PRN Reason Stop Dose Admin Amlodipine Besylate 2.5 mg 10/25/19 09:00 10/25/19 08:13 Norvasc PO 2.5 mg DAILY ZARA Administration Carvedilol 6.25 mg 10/24/19 21:00 10/25/19 08:13 Coreg PO 6.25 mg BID ZARA Administration Famotidine 20 mg 10/24/19 21:00 10/25/19 08:13 Pepcid PO 20 mg BID ZARA Administration Gabapentin 100 mg 10/25/19 09:00 10/25/19 08:13 Neurontin PO 100 mg DAILY ZARA Administration Ceftriaxone Sodium 2 gm/ 100 mls @ 200 mls/hr 10/25/19 14:00 10/25/19 13:00 Sodium Chloride IVPB 100 mls 1400 ZARA Administration Sodium Chloride 1,000 mls @ 100 mls/hr 10/24/19 19:30 10/25/19 12:22 Normal Saline 0.9% IV 1,000 mls .Q10H ZARA Administration Vancomycin HCl 1.75 gm/ Sodium 500 mls @ 250 mls/hr 10/25/19 15:00 10/25/19 15:34 Chloride IVPB 500 mls 0300,1500 ZARA Administration Isosorbide Mononitrate 30 mg 10/25/19 09:00 10/25/19 08:13 Imdur Er PO 30 mg DAILY ZARA Administration Mirtazapine 7.5 mg 10/24/19 21:00 10/24/19 21:05 Remeron PO 7.5 mg HS ZARA Administration Pravastatin Sodium 80 mg 10/24/19 21:00 10/24/19 21:05 Pravachol PO 80 mg HS ZARA Administration Ranolazine 500 mg 10/24/19 21:00 10/25/19 08:13 Ranexa PO 500 mg BID ZARA Administration Rivaroxaban 20 mg 10/25/19 09:00 10/25/19 08:12 Xarelto PO 20 mg QAM ZARA Administration Sertraline HCl 50 mg 10/25/19 09:00 10/25/19 08:13 Zoloft PO 50 mg DAILY ZARA Administration Zolpidem Tartrate 10 mg 10/24/19 21:00 10/24/19 21:06 Ambien PO 10 mg HS ZARA Administration - Exam General Appearance: NAD, awake alert Eye: PERRL, anicteric sclera ENT: normocephalic atraumatic, no oropharyngeal lesions Neck: supple, symmetric, no JVD, no thyromegaly Heart: RRR, no murmur, no gallops, no rubs, normal peripheral pulses Respiratory - other findings: diminished in bases, occasional exp wheeze Gastrointestinal: soft, non-tender, non-distended, normal bowel sounds, no palpable masses Extremities: no cyanosis, no clubbing, no edema Skin: normal turgor, no lesions Neurological: cranial nerve grossly intact, no new deficit Musculoskeletal: normal tone, normal strength, no muscle wasting Psychiatric: normal affect, A&O x 3 Hosp A/P (1) Sepsis Code(s): A41.9 - SEPSIS, UNSPECIFIED ORGANISM Status: Acute Plan: Gram negative sepsis secondary to UTI source, continue Ceftriaxone/Vancomycin pending final cx results (2) UTI (urinary tract infection) Status: Acute Plan: GNR on initial Ucx, see above, continue IVF's (3) Acute on chronic renal failure Code(s): N17.9 - ACUTE KIDNEY FAILURE, UNSPECIFIED; N18.9 - CHRONIC KIDNEY DISEASE, UNSPECIFIED Status: Acute Plan: Improved, continue IVF's, avoid nephrotoxic meds and limit contrast (4) Chronic anticoagulation Code(s): 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
[2019-10-25] MEDS ORDERED: LURASIDONE HCL 40 MG PO SCH (17:00)
[2019-10-25] MEDS: Pravastatin Sodium 40 MG TAB PO SCH (20:46)
[2019-10-25] MEDS: Mirtazapine 15 MG TAB PO SCH (20:46)
[2019-10-25] MEDS: Zolpidem Tartrate 5 MG TAB PO SCH (20:47)
[2019-10-26 02:27] LABS: Band 6 % (5-11); Eosinophils 8 % (0-10); Hemoglobin 11.4 g/dL (14.0-18.0); Lymphocytes 37 % (21-51); MDiff Complete? YES; Mean Corpuscular HGB CONC 34.2 g/dL (32.0-36.0); Mean Corpuscular Hemoglobin 34.9 pg (27.0-31.0); Mean Platelet Volume 7.4 fL (7.4-10.4); Monocytes 3 % (0-10); Neutrophil 46 % (42-75); Platelet Count 224 thou/uL (130-400); RBC Distribution Width 14.2 % (11.5-14.5); Red Blood Cell (RBC) Count 3.28 mill/uL (4.70-6.10); White Blood Cell (WBC) Count 4.5 thou/uL (4.8-10.8)
[2019-10-26 02:29] LABS: Vancomycin, Trough 14.6 ug/mL
[2019-10-26 02:36] LABS: Anion Gap 13 mmol/L (10-20); BUN (Urea Nitrogen) 17 mg/dL (8.4-25.7); Calc. Creatinine Clearance 109 mL/min (70-130); Calcium 9.1 mg/dL (7.8-10.44); Carbon Dioxide 22 mmol/L (23-31); Chloride 111 mmol/L (98-107); Estimated GFR-MDRD 78; Glucose 122 mg/dL (80-115); Potassium 3.7 mmol/L (3.5-5.1); Sodium 142 mmol/L (136-145)
[2019-10-26] MEDS: Sodium Chloride 0.9% 1,000 ML IV SCH (09:03)
[2019-10-26] MEDS: Isosorbide Mononitrate (ER) 30 MG TAB PO SCH (09:04)
[2019-10-26] MEDS: Carvedilol 6.25 MG TAB PO SCH ×2 (09:07→20:38)
[2019-10-26] MEDS: Famotidine 20 MG TAB PO SCH ×2 (09:08→20:37)
[2019-10-26] MEDS: Amlodipine 5 MG TAB PO SCH (09:10)
[2019-10-26] MEDS: Rivaroxaban 10 MG TAB PO SCH (09:10)
[2019-10-26] MEDS: Gabapentin 100 MG CAP PO SCH (09:13)
[2019-10-26] MEDS: cefTRIAXone\\ROCEPHIN 2 GM in Sodium Chloride 0.9% 100 ML IVPB SCH (14:19)
--- NOTE | 2019-10-26 16:19 | PDOC.HOSPP ---
- Subjective Encounter Date: 10/26/19 Encounter Time: 16:20 Subjective: f/u for Enterobacter sepis due to UTI source on current Rocephin/Vancomycin. Feels much better overall. - Objective Vital Signs & Weight: Vital Signs (12 hours) Temp Pulse Resp BP BP BP Pulse Ox 10/26/19 15:26 98.1 F 62 17 139/88 95 10/26/19 11:55 98.2 F 75 18 139/83 95 10/26/19 11:31 98.2 F 59 L 18 122/73 94 L 10/26/19 09:10 68 168/98 H 10/26/19 09:07 168/98 H 10/26/19 08:00 92 L 10/26/19 07:29 98.1 F 65 19 144/89 H 92 L 10/26/19 04:40 98.3 F 76 20 139/76 94 L Weight Weight 262 lb 3 oz I&O: 10/25/19 10/26/19 10/27/19 06:59 06:59 06:59 Intake Total 1550 1600 600 Output Total 1600 2450 600 Balance -50 -850 0 Result Diagrams: 10/26/19 01:49 10/26/19 01:49 Additional Labs: Microbiology 10/24/19 13:48 Nasal swab Influenza Types A,B Direct EIA - Final 10/24/19 13:30 Urine voided Urine Culture - Final Enterobacter aerogenes 10/24/19 13:59 Venous blood - Right Hand Blood Culture - Preliminary Specimen has been received and culture in progress. No Growth to date. 10/24/19 13:59 Venous blood - Right Hand Blood Culture - Preliminary NO GROWTH AT 48 HOURS 10/24/19 13:51 Venous blood - Right Arm Blood Culture - Preliminary Gram Negative Stone 10/24/19 13:51 Venous blood - Right Arm Blood Culture - Preliminary Enterobacter species 10/24/19 13:30 Urine voided Urine Culture - Preliminary Gram Negative Stone Laboratory Tests 10/24/19 10/24/19 10/24/19 13:51 13:51 13:51 Hgb 11.7 L Neutrophils % 82.3 H Neutrophils % (Manual) Band Neuts % (Manual) Creatinine 1.52 H Lactic Acid B-Natriuretic Peptide 21.4 10/24/19 10/25/19 13:51 05:05 Hgb Neutrophils % Neutrophils % (Manual) 57 Band Neuts % (Manual) 12 H Creatinine Lactic Acid 1.9 B-Natriuretic Peptide Hospitalist ROS - Medication Medications: Active Medications Generic Name Dose Route Start Last Admin Trade Name Nikolas PRN Reason Stop Dose Admin Amlodipine Besylate 2.5 mg 10/25/19 09:00 10/26/19 09:10 Norvasc PO 2.5 mg DAILY ZARA Administration Carvedilol 6.25 mg 10/24/19 21:00 10/26/19 09:07 Coreg PO 6.25 mg BID ZARA Administration Famotidine 20 mg 10/24/19 21:00 10/26/19 09:08 Pepcid PO 20 mg BID ZARA Administration Gabapentin 100 mg 10/25/19 09:00 10/26/19 09:13 Neurontin PO 100 mg DAILY ZARA Administration Ceftriaxone Sodium 2 gm/ 100 mls @ 200 mls/hr 10/25/19 14:00 10/26/19 14:19 Sodium Chloride IVPB 100 mls 1400 ZARA Administration Sodium Chloride 1,000 mls @ 75 mls/hr 10/25/19 18:30 10/26/19 09:03 Normal Saline 0.9% IV 1,000 mls .[id number] ZARA Administration Isosorbide Mononitrate 30 mg 10/25/19 09:00 10/26/19 09:04 Imdur Er PO 30 mg DAILY ZARA Administration Mirtazapine 7.5 mg 10/24/19 21:00 10/25/19 20:46 Remeron PO 7.5 mg HS ZARA Administration Pantoprazole Sodium 40 mg 10/26/19 09:00 10/26/19 09:13 Protonix PO 40 mg DAILY ZARA Administration Pravastatin Sodium 80 mg 10/24/19 21:00 10/25/19 20:46 Pravachol PO 80 mg HS ZARA Administration Ranolazine 500 mg 10/24/19 21:00 10/26/19 09:08 Ranexa PO 500 mg BID ZARA Administration Rivaroxaban 20 mg 10/25/19 09:00 10/26/19 09:10 Xarelto PO 20 mg QAM ZARA Administration Sertraline HCl 50 mg 10/25/19 09:00 10/26/19 09:09 Zoloft PO 50 mg DAILY ZARA Administration Zolpidem Tartrate 10 mg 10/24/19 21:00 10/25/19 20:47 Ambien PO 10 mg HS ZARA Administration - Exam General Appearance: NAD, awake alert Eye: PERRL, anicteric sclera ENT: normocephalic atraumatic, no oropharyngeal lesions Neck: supple, symmetric, no JVD, no thyromegaly Heart: RRR, no murmur, no gallops, no rubs, normal peripheral pulses Respiratory: CTAB, no wheezes, no rales, no ronchi, normal chest expansion Gastrointestinal: soft, non-tender, non-distended, normal bowel sounds, no palpable masses Extremities: no cyanosis, no clubbing, no edema Skin: normal turgor, no lesions Neurological: cranial nerve grossly intact, no new deficit Musculoskeletal: normal tone, normal strength, no muscle wasting Psychiatric: normal affect, A&O x 3 Hosp A/P (1) Sepsis Code(s): A41.9 - SEPSIS, UNSPECIFIED ORGANISM Status: Acute Plan: Continue Rocephin, d/c Vancomycin, continue low-volume IVF's another 24h then d/ c (2) UTI (urinary tract infection) Status: Acute Plan: Enterobacter spp isolated, continue Rocephin IV (3) Acute on chronic renal failure Code(s): N17.9 - ACUTE KIDNEY FAILURE, UNSPECIFIED; N18.9 - CHRONIC KIDNEY DISEASE, UNSPECIFIED Status: Acute Plan: Improved, avoid nephrotoxic agents and limit contrast exposure (4) Chronic anticoagulation Code(s): 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
[2019-10-26] MEDS: PROVENTIL INHALER 6.7 G (200 INHALATIONS) INH SCH (19:18)
[2019-10-26] MEDS: Mirtazapine 15 MG TAB PO SCH (20:37)
[2019-10-26] MEDS: Zolpidem Tartrate 5 MG TAB PO SCH (20:37)
[2019-10-26] MEDS: Pravastatin Sodium 40 MG TAB PO SCH (20:38)
[2019-10-27] MEDS: PROVENTIL INHALER 6.7 G (200 INHALATIONS) INH SCH ×4 (00:28→19:21)
[2019-10-27 06:48] LABS: Anion Gap 14 mmol/L (10-20); BUN (Urea Nitrogen) 14 mg/dL (8.4-25.7); Calc. Creatinine Clearance 110 mL/min (70-130); Calcium 9.4 mg/dL (7.8-10.44); Carbon Dioxide 24 mmol/L (23-31); Chloride 107 mmol/L (98-107); Estimated GFR-MDRD 79; Glucose 98 mg/dL (80-115); Potassium 3.8 mmol/L (3.5-5.1); Sodium 141 mmol/L (136-145)
[2019-10-27] MEDS: Isosorbide Mononitrate (ER) 30 MG TAB PO SCH (09:31)
[2019-10-27] MEDS: Rivaroxaban 10 MG TAB PO SCH (09:31)
[2019-10-27] MEDS: Gabapentin 100 MG CAP PO SCH (09:32)
[2019-10-27] MEDS: Carvedilol 6.25 MG TAB PO SCH ×2 (09:32→20:57)
[2019-10-27] MEDS: Famotidine 20 MG TAB PO SCH ×2 (09:32→20:56)
[2019-10-27] MEDS: Amlodipine 5 MG TAB PO SCH (09:33)
[2019-10-27] MEDS: cefTRIAXone\\ROCEPHIN 2 GM in Sodium Chloride 0.9% 100 ML IVPB SCH (13:40)
--- NOTE | 2019-10-27 14:06 | PDOC.HOSPP ---
- Subjective Encounter Date: 10/27/19 Encounter Time: 14:00 Subjective: f/u for Enterobacter spp UTI/Sepsis on Rocephin. Feels better overall. No recurrent fever. Tolerating po intake. No new issues reported. - Objective Vital Signs & Weight: Vital Signs (12 hours) Temp Pulse Resp BP BP BP Pulse Ox 10/27/19 12:26 61 16 98 10/27/19 09:33 69 10/27/19 09:32 156/94 H 10/27/19 08:00 98.1 F 61 18 155/94 H 100 10/27/19 07:08 56 L 16 100 10/27/19 04:30 97.6 F 68 20 157/96 H 95 10/27/19 04:00 97.6 F 68 20 157/96 H 95 Weight Admit Weight 262 lb 3 oz Weight 262 lb 3 oz I&O: 10/26/19 10/27/19 10/28/19 06:59 06:59 06:59 Intake Total 1600 840 Output Total 2450 600 Balance -850 240 Result Diagrams: 10/26/19 01:49 10/27/19 06:14 Additional Labs: Microbiology 10/24/19 13:48 Nasal swab Influenza Types A,B Direct EIA - Final 10/24/19 13:30 Urine voided Urine Culture - Final Enterobacter aerogenes 10/24/19 13:59 Venous blood - Right Hand Blood Culture - Preliminary Specimen has been received and culture in progress. No Growth to date. 10/24/19 13:59 Venous blood - Right Hand Blood Culture - Preliminary NO GROWTH AT 48 HOURS 10/24/19 13:51 Venous blood - Right Arm Blood Culture - Preliminary Gram Negative Stone 10/24/19 13:51 Venous blood - Right Arm Blood Culture - Preliminary Enterobacter species 10/24/19 13:30 Urine voided Urine Culture - Preliminary Gram Negative Stone Laboratory Tests 10/24/19 10/24/19 10/24/19 13:51 13:51 13:51 Hgb 11.7 L Neutrophils % 82.3 H Neutrophils % (Manual) Band Neuts % (Manual) Creatinine 1.52 H Lactic Acid B-Natriuretic Peptide 21.4 10/24/19 10/25/19 13:51 05:05 Hgb Neutrophils % Neutrophils % (Manual) 57 Band Neuts % (Manual) 12 H Creatinine Lactic Acid 1.9 B-Natriuretic Peptide Hospitalist ROS - Medication Medications: Active Medications Generic Name Dose Route Start Last Admin Trade Name Freq PRN Reason Stop Dose Admin Albuterol Sulfate 2 puff 10/26/19 19:00 10/27/19 12:26 Proventil Hfa INH 2 puff [id number] ZARA Administration Amlodipine Besylate 2.5 mg 10/25/19 09:00 10/27/19 09:33 Norvasc PO 2.5 mg DAILY ZARA Administration Carvedilol 6.25 mg 10/24/19 21:00 10/27/19 09:32 Coreg PO 6.25 mg BID ZARA Administration Famotidine 20 mg 10/24/19 21:00 10/27/19 09:32 Pepcid PO 20 mg BID ZARA Administration Gabapentin 100 mg 10/25/19 09:00 10/27/19 09:32 Neurontin PO 100 mg DAILY ZARA Administration Ceftriaxone Sodium 2 gm/ 100 mls @ 200 mls/hr 10/25/19 14:00 10/27/19 13:40 Sodium Chloride IVPB 100 mls 1400 ZARA Administration Isosorbide Mononitrate 30 mg 10/25/19 09:00 10/27/19 09:31 Imdur Er PO 30 mg DAILY ZARA Administration Mirtazapine 7.5 mg 10/24/19 21:00 10/26/19 20:37 Remeron PO 7.5 mg HS ZARA Administration Ondansetron HCl 4 mg 10/24/19 19:23 10/27/19 13:48 Zofran Odt PO 4 mg Q6H PRN Administration Nausea/Vomiting Pantoprazole Sodium 40 mg 10/26/19 09:00 10/27/19 09:32 Protonix PO 40 mg DAILY ZARA Administration Pravastatin Sodium 80 mg 10/24/19 21:00 10/26/19 20:38 Pravachol PO 80 mg HS ZARA Administration Ranolazine 500 mg 10/24/19 21:00 10/27/19 09:31 Ranexa PO 500 mg BID ZARA Administration Rivaroxaban 20 mg 10/25/19 09:00 10/27/19 09:31 Xarelto PO 20 mg QAM ZARA Administration Sertraline HCl 50 mg 10/25/19 09:00 10/27/19 09:31 Zoloft PO 50 mg DAILY ZARA Administration Zolpidem Tartrate 10 mg 10/24/19 21:00 10/26/19 20:37 Ambien PO 10 mg HS ZARA Administration - Exam General Appearance: NAD, awake alert Eye: PERRL, anicteric sclera ENT: normocephalic atraumatic, no oropharyngeal lesions Neck: supple, symmetric, no JVD, no thyromegaly Heart: RRR, no murmur, no gallops, no rubs, normal peripheral pulses Respiratory: no rales, normal chest expansion Respiratory - other findings: occasional rhonchi Gastrointestinal: soft, non-tender, non-distended, normal bowel sounds, no palpable masses Extremities: no cyanosis, no clubbing, no edema Skin: normal turgor, no lesions Neurological: cranial nerve grossly intact, no new deficit Musculoskeletal: normal tone, normal strength, no muscle wasting Psychiatric: normal affect, A&O x 3 Hosp A/P (1) Sepsis Code(s): A41.9 - SEPSIS, UNSPECIFIED ORGANISM Status: Acute Plan: Enterobacter spp from UTI, continue Rocephin another 24h then convert to Levaquin (2) UTI (urinary tract infection) Status: Acute Plan: See #1 above (3) Acute on chronic renal failure Code(s): N17.9 - ACUTE KIDNEY FAILURE, UNSPECIFIED; N18.9 - CHRONIC KIDNEY DISEASE, UNSPECIFIED Status: Acute Plan: Improved, avoid nephrotoxic meds and limit contrast exposure (4) Chronic anticoagulation Code(s): 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
[2019-10-27 20:29] VITALS: TEMP 97.6
[2019-10-27] MEDS: Zolpidem Tartrate 5 MG TAB PO SCH (20:56)
[2019-10-27] MEDS: Mirtazapine 15 MG TAB PO SCH (20:57)
[2019-10-27] MEDS: Pravastatin Sodium 40 MG TAB PO SCH (20:57)
[2019-10-28] MEDS: PROVENTIL INHALER 6.7 G (200 INHALATIONS) INH SCH ×2 (00:12→06:42)
[2019-10-28] MEDS: Amlodipine 5 MG TAB PO SCH (08:41)
[2019-10-28] MEDS: Rivaroxaban 10 MG TAB PO SCH (08:41)
[2019-10-28] MEDS: Gabapentin 100 MG CAP PO SCH (08:42)
[2019-10-28] MEDS: Famotidine 20 MG TAB PO SCH (08:42)
[2019-10-28] MEDS: Carvedilol 6.25 MG TAB PO SCH (08:42)
[2019-10-28] MEDS: Isosorbide Mononitrate (ER) 30 MG TAB PO SCH (08:42)
[2019-10-28 12:01] VITALS: BP 129/77
--- NOTE | 2019-10-28 15:44 | DIS ---
DATE OF ADMISSION: 10/24/2019 DATE OF DISCHARGE: 10/28/2019 DISCHARGE DIAGNOSES: 1. Sepsis secondarily to urinary tract infection, resolving. 2. Urinary tract infection with Enterobacter species, improved. 3. Acute on chronic kidney disease, improved. 4. Chronic anticoagulation with Xarelto. 5. Hypertension, stable. CONSULTATIONS: None. PERTINENT LABORATORY AND X-RAY FINDINGS: Creatinine ranged between 1.13 to 1.52. Estimated GFR ranged between 56 to 79. Lactic acid level 1.9. LFTs within normal limits. BNP 21. CBC showed a white blood cell count ranging between 4.5 to 9.6, hemoglobin ranged between 11.2 to 11.7. Urine culture dated 10/24/2019, showed greater than 100,000 colonies of Enterobacter aerogenes. Blood cultures x2 dated 10/24/2019, showed 1/2 positive for Enterobacter species. Influenza A and B antigen dated 10/24/2019 negative. Portable chest x-ray dated 10/24/2019, showed no acute process. HOSPITAL COURSE: The patient was admitted to the medical floor after initially presenting with dysuria and fever and chills. The patient was diagnosed with a urinary tract infection in the context of previous urethral stricture, status post urethroplasty in 2018. The patient was noted to meet sepsis criteria and placed on broad-spectrum IV antibiotic therapy to include vancomycin and Rocephin. Urine and blood cultures were positive for Enterobacter species and the patient continued on IV antibiotic therapy throughout the hospital course. The patient rapidly clinically improved with the addition of IV antibiotic therapy and IV fluid support. The patient was also noted with mild acute kidney injury, improving with IV fluid hydration and adjustment to his blood pressure regimen to include holding lisinopril and hydrochlorothiazide. The patient overall remained clinically stable during the hospital course, tolerating regular oral intake with stable vital signs. I have examined the patient at the time of discharge and discussed followup instructions. The patient verbalizes understanding and in agreement and ready for discharge on 10/28/2019. DISCHARGE MEDICATIONS: 1. Levaquin 500 mg one tablet p.o. daily x7 days. 2. Amlodipine 2.5 mg p.o. daily. 3. Coreg 6.25 mg p.o. b.i.d. 4. Hydrochlorothiazide 25 mg p.o. q.a.m. 5. Latuda 40 mg p.o. daily. 6. Omeprazole 40 mg p.o. q.a.m. 7. Pravachol 80 mg p.o. daily. 8. Zoloft 50 mg p.o. daily. 9. Ambien 10 mg p.o. at bedtime. 10. Neurontin 100 mg p.o. daily. 11. Isosorbide mononitrate 30 mg p.o. daily. 12. Lisinopril 20 mg p.o. daily, resume on 11/01/2019. 13. Remeron 7.5 mg p.o. at bedtime. 14. Ranexa 500 mg p.o. b.i.d. 15. Xarelto 20 mg p.o. q.a.m. FOLLOWUP: The patient may follow up with [place], [place] with [facility] within 7 to 10 days of discharge. CONDITION ON DISCHARGE: Stable. ACTIVITY: Ad-maggie. DIET: Heart healthy. CODE STATUS: Full. DISPOSITION: Home on 10/28/2019. TIME SPENT: Total time preparing and coordinating discharge, 31 minutes. Job ID: [id number]
--- NOTE | 2019-10-30 18:13 | EKG ---
Test Reason : SEPSIS Blood Pressure : / mmHG Vent. Rate : 094 BPM Atrial Rate : 094 BPM P-R Int : 182 ms QRS Dur : 102 ms QT Int : 338 ms P-R-T Axes : 049 014 070 degrees QTc Int : 422 ms Normal sinus rhythm Normal ECG Confirmed by JASON GRACIA, CONSUELO Hartman ([id number]), videotape editor DAVIDSON BROWN ([id number]) on 10/30/2019 6:13:46 PM Referred By: Confirmed By:CONSUELO GOMEZ MD
--- NOTE | 2019-11-01 23:59 | PQF ---
AUGUSTO BADILLO JR, CHARLES DO [id number] CLINICAL DOCUMENTATION CLARIFICATION FORM: POST DISCHARGE Addendum to original discharge summary date: ____ Late entry note date: __ DATE:11/02/2019 ATTN:SAMUEL MAYNARD DO Please exercise your independent, professional judgment in responding to the clarification form. Clinical indicators are provided on the bottom of this form for your review Please check appropriate box(s): [ ] UTI due to urethroplasty procedure [ x ] UTI not due to urethroplasty procedure [ ] Other diagnosis [ ] Unable to determine CLINICAL INDICATORS - SIGNS / SYMPTOMS / LABS - UTI with Enterobacter species, improved- DS, 10/27, SAMUEL MAYNARD DO - Sepsis secondary to UTI resolving-DS, 10/27, SAMUEL MAYNARD DO - Urine culture: Enterobacter aerogenes- Microbiology 10/23 - Temp: 103.7- H&P, 10/23CAESAR CHARLES DO RISK FACTORS - S/p Urethroplasty with buccal mucosal augmentation- H&P, 10/23, SAMUEL MYANARD DO - Acute kidney injury- H&P, 10/23, SAMUEL MAYNARD DO TREATMENT: - Vancomycin.IV- OCT.10/23 - Rocephin.IV- MAR, 10/23 (This form is maintained as a part of the permanent medical record) 2014 [employer] All Rights Reserved [email or web address]
== END 2019-10-28 12:04 | disposition home or self-care (01) | DRG 872 ==
LOC: ERS 13:19 → T4-B 15:03
PROVIDERS: ADMIT Emergency Medicine; ATTEND Family Medicine
DX: A41.81 Sepsis due to Enterococcus (principal); N39.0 Urinary tract infection, site not specified; N17.9 Acute kidney failure, unspecified; Z68.41 Body mass index [BMI] 40.0-44.9, adult; R65.20 Severe sepsis without septic shock; N18.9 Chronic kidney disease, unspecified; I12.9 Hypertensive chronic kidney disease with stage 1 through stage 4 chronic kidney disease, or unspecified chronic kidney disease; E86.0 Dehydration; E66.01 Morbid (severe) obesity due to excess calories; K21.9 Gastro-esophageal reflux disease without esophagitis; N40.0 Benign prostatic hyperplasia without lower urinary tract symptoms; F17.210 Nicotine dependence, cigarettes, uncomplicated; G89.4 Chronic pain syndrome; G47.33 Obstructive sleep apnea (adult) (pediatric); I48.0 Paroxysmal atrial fibrillation; Z79.01 Long term (current) use of anticoagulants
CPT/HCPCS: 36415; 71045; 80048; 80053; 80202; 81003; 81015; 83605; 83880; 84484; 85007; 85025; 85027; 87040; 87077; 87086; 87149; 87186; 87804; 93005; 94640; 96365; 96366; 96367; J0696; J3370; J3490; J7050; J7620; Q0162

== ENCOUNTER 2020-08-22 13:52 | Outpatient (CLI) | payer MEDICARE, MEDICAID ==
--- NOTE | 2020-08-22 15:37 | RAD ---
RIGHT FOOT 3 VIEWS: HISTORY: Foot pain. Injury to great toe. FINDINGS: Tarsals appear intact. Metatarsals and phalanges are intact. Mild degenerative changes at the 1st M TP joint and at the IP joint of the great toe. IMPRESSION: No acute finding. POS: AGW
== END 2020-08-22 13:53 | disposition home or self-care (01) ==
LOC: BICRAD 13:52
PROVIDERS: ATTEND Nurse Practitioner Family
DX: M79.674 Pain in right toe(s) (principal)

== ENCOUNTER 2021-06-15 10:10 | Observation (INO) | payer MEDICARE, MEDICAID ==
[2021-06-15 10:54] LABS: #Eosinphils 0.2 thou/uL (0.0-0.7); #Lymphocytes 1.6 thou/uL (1.20-3.40); #Monocytes 0.5 thou/uL (0.11-0.59); #Neutrophils 2.2 thou/uL (1.40-6.50); %Basophils 0.4 % (0.0-1.0); %Eosinophils 3.8 % (0.0-10.0); %Lymphocytes 36.1 % (21.0-51.0); %Monocytes 10.3 % (0.0-10.0); %Neutrophils 49.3 % (42.0-75.0); Hemoglobin 13.7 g/dL (14.0-18.0); Mean Corpuscular HGB CONC 35.3 g/dL (32.0-36.0); Mean Corpuscular Hemoglobin 36.2 pg (27.0-31.0); Mean Platelet Volume 7.8 fL (7.4-10.4); Platelet Count 252 thou/uL (130-400); RBC Distribution Width 12.9 % (11.5-14.5); Red Blood Cell (RBC) Count 3.79 mill/uL (4.70-6.10); White Blood Cell (WBC) Count 4.5 thou/uL (4.8-10.8)
[2021-06-15 11:10] LABS: ALT (SGPT) 63 U/L (8-55); AST (SGOT) 54 U/L (5-34); Albumin 4.4 g/dL (3.4-4.8); Alkaline Phosphatase 87 U/L (40-110); Anion Gap 12 mmol/L (10-20); BUN (Urea Nitrogen) 20 mg/dL (8.4-25.7); Bilirubin, Total 0.6 mg/dL (0.2-1.2); Calc. Creatinine Clearance 0 mL/min (70-130); Calcium 10.2 mg/dL (7.8-10.44); Carbon Dioxide 24 mmol/L (23-31); Chloride 105 mmol/L (98-107); Globulin 4.2 g/dL (2.4-3.5); Glucose 133 mg/dL (80-115); Potassium 4.2 mmol/L (3.5-5.1); Protein, Total 8.6 g/dL (5.8-8.1); Sodium 137 mmol/L (136-145)
[2021-06-15] MEDS ORDERED: Aspirin 325 MG TAB ONE (11:29)
[2021-06-15] MEDS ORDERED: Nitroglycerin 2% Ointment 1 INCH/1 GM Packet ONE (15:21)
[2021-06-15 15:59] LABS: Troponin I Less than 0.010 ng/mL (< 0.028)
[2021-06-15] MEDS ORDERED: Bisacodyl 10 MG SUPP PR PRN (16:57)
[2021-06-15] MEDS ORDERED: Ondansetron PF 4 MG/2 ML Vial IVP PRN (16:57)
[2021-06-15] MEDS ORDERED: Acetaminophen 325 MG TAB PO PRN (16:57)
[2021-06-15] MEDS ORDERED: Senokot S 8.6-50 MG TAB PO PRN (16:57)
[2021-06-15] MEDS ORDERED: Guaifenesin DM 100-10/5 ML UDCUP PO PRN (16:57)
[2021-06-15 19:40] LABS: Troponin I Less than 0.010 ng/mL (< 0.028)
[2021-06-15 20:16] VITALS: BMI 42.4
[2021-06-15] MEDS ORDERED: Morphine 4 MG/ML VIAL SLOW IVP PRN ×2 (21:30→23:00)
[2021-06-15] MEDS: Calcium Carbonate 500 MG ChewTAB PO PRN (22:07)
[2021-06-15] MEDS: Nicotine 14 MG PATCH TD SCH (22:51)
[2021-06-15] MEDS: Benzonatate 100 MG CAP PO SCH (22:52)
[2021-06-15] MEDS: Doxycycline 100 MG CAP PO SCH (22:52)
[2021-06-15] MEDS: Mirtazapine 15 MG TAB PO SCH (22:52)
[2021-06-15] MEDS: guaiFENesin ER 600 MG TAB PO SCH (22:52)
[2021-06-15] MEDS: methylPREDNISolone Sod Succ 40 MG VIAL IVP SCH (22:52)
[2021-06-15] MEDS: Carvedilol 6.25 MG TAB PO SCH (22:52)
[2021-06-15 22:55] LABS: Troponin I Less than 0.010 ng/mL (< 0.028)
[2021-06-16] MEDS: methylPREDNISolone Sod Succ 40 MG VIAL IVP SCH ×2 (05:47→12:41)
[2021-06-16] MEDS: Mometasone 200 MCG/Formoterol 5 MCG 120 PUFF INHALER INH SCH ×3 (05:49→21:06)
[2021-06-16 05:57] LABS: #Monocytes 0.1 thou/uL (0.11-0.59); #Neutrophils 4.8 thou/uL (1.40-6.50); %Basophils 0.5 % (0.0-1.0); %Eosinophils 0.2 % (0.0-10.0); %Lymphocytes 16.9 % (21.0-51.0); %Monocytes 1.5 % (0.0-10.0); %Neutrophils 80.9 % (42.0-75.0); Hemoglobin 13.7 g/dL (14.0-18.0); Mean Corpuscular HGB CONC 34.7 g/dL (32.0-36.0); Mean Corpuscular Hemoglobin 35.8 pg (27.0-31.0); Mean Platelet Volume 7.7 fL (7.4-10.4); Platelet Count 241 thou/uL (130-400); RBC Distribution Width 12.8 % (11.5-14.5); Red Blood Cell (RBC) Count 3.84 mill/uL (4.70-6.10)
[2021-06-16 06:18] LABS: Anion Gap 14 mmol/L (10-20); BUN (Urea Nitrogen) 23 mg/dL (8.4-25.7); Calc. Creatinine Clearance 77 mL/min (70-130); Calcium 10.7 mg/dL (7.8-10.44); Carbon Dioxide 23 mmol/L (23-31); Chloride 106 mmol/L (98-107); Glucose 199 mg/dL (80-115); Potassium 4.8 mmol/L (3.5-5.1); Sodium 138 mmol/L (136-145)
[2021-06-16] MEDS: Doxycycline 100 MG CAP PO SCH ×2 (08:35→21:06)
[2021-06-16] MEDS: Amlodipine 5 MG TAB PO SCH (08:35)
[2021-06-16] MEDS: Gabapentin 100 MG CAP PO SCH (08:36)
[2021-06-16] MEDS: Rivaroxaban 10 MG TAB PO SCH (08:36)
[2021-06-16] MEDS: guaiFENesin ER 600 MG TAB PO SCH ×2 (08:36→21:06)
[2021-06-16] MEDS: Benzonatate 100 MG CAP PO SCH ×3 (08:36→21:06)
[2021-06-16] MEDS: Carvedilol 6.25 MG TAB PO SCH ×2 (08:38→21:05)
[2021-06-16] MEDS ORDERED: Hydrochlorothiazide 25 MG TAB PO SCH (09:00)
[2021-06-16] MEDS ORDERED: Atorvastatin Calcium 20 MG TAB PO SCH (09:00)
[2021-06-16] MEDS: Atorvastatin Calcium 20 MG TAB PO SCH (09:30)
[2021-06-16] MEDS ORDERED: Sodium Chloride 0.9% 1,000 ML IV SCH (10:00)
[2021-06-16] MEDS ORDERED: Sodium Chloride 0.9% 500 ML IV SCH (10:00)
[2021-06-16] MEDS: Calcium Carbonate 500 MG ChewTAB PO PRN ×2 (12:38→15:53)
[2021-06-16 14:42] LABS: Anion Gap 15 mmol/L (10-20); BUN (Urea Nitrogen) 26 mg/dL (8.4-25.7); Calc. Creatinine Clearance 75 mL/min (70-130); Calcium 10.5 mg/dL (7.8-10.44); Carbon Dioxide 22 mmol/L (23-31); Chloride 103 mmol/L (98-107); Glucose 220 mg/dL (80-115); Potassium 4.7 mmol/L (3.5-5.1); Sodium 135 mmol/L (136-145)
[2021-06-16] MEDS: Sodium Chloride 0.9% 1,000 ML IV SCH (15:36)
[2021-06-16 16:21] LABS: SARS-CoV-2 PCR by NAA Not Detected (NotDetected)
[2021-06-16] MEDS ORDERED: Lurasidone 20 MG TABLET PO SCH (17:00)
[2021-06-16] MEDS: predniSONE 20 MG TAB PO SCH (18:33)
[2021-06-16] MEDS ORDERED: Zolpidem Tartrate 5 MG TAB PO SCH (21:00)
[2021-06-16] MEDS: Mirtazapine 15 MG TAB PO SCH (21:05)
[2021-06-16] MEDS: Nicotine 14 MG PATCH TD SCH (21:06)
[2021-06-17] MEDS: Sodium Chloride 0.9% 1,000 ML IV SCH (05:38)
[2021-06-17] MEDS: Mometasone 200 MCG/Formoterol 5 MCG 120 PUFF INHALER INH SCH (06:33)
[2021-06-17 07:57] LABS: Anion Gap 17 mmol/L (10-20); BUN (Urea Nitrogen) 32 mg/dL (8.4-25.7); Calc. Creatinine Clearance 82 mL/min (70-130); Carbon Dioxide 21 mmol/L (23-31); Chloride 107 mmol/L (98-107); Glucose 143 mg/dL (80-115); Magnesium 2.1 mg/dL (1.6-2.6); Potassium 4.6 mmol/L (3.5-5.1); Sodium 140 mmol/L (136-145)
[2021-06-17] MEDS: guaiFENesin ER 600 MG TAB PO SCH (08:23)
[2021-06-17] MEDS: Atorvastatin Calcium 20 MG TAB PO SCH (08:23)
[2021-06-17] MEDS: Carvedilol 6.25 MG TAB PO SCH (08:23)
[2021-06-17] MEDS: Doxycycline 100 MG CAP PO SCH (08:23)
[2021-06-17] MEDS: Rivaroxaban 10 MG TAB PO SCH (08:23)
[2021-06-17] MEDS: Gabapentin 100 MG CAP PO SCH (08:24)
[2021-06-17] MEDS: predniSONE 20 MG TAB PO SCH (08:24)
[2021-06-17] MEDS: Benzonatate 100 MG CAP PO SCH (08:24)
[2021-06-17] MEDS: Amlodipine 5 MG TAB PO SCH (08:24)
[2021-06-17] MEDS ORDERED: Aspirin 81 mg Enteric Coated Tablet PO SCH (09:00)
[2021-06-17 12:05] VITALS: BP 155/79; TEMP 97.8
[2021-06-17] MEDS: Calcium Carbonate 500 MG ChewTAB PO PRN (12:20)
[2021-06-17 14:15] LABS: Anion Gap 15 mmol/L (10-20); BUN (Urea Nitrogen) 32 mg/dL (8.4-25.7); Calc. Creatinine Clearance 81 mL/min (70-130); Calcium 9.9 mg/dL (7.8-10.44); Carbon Dioxide 22 mmol/L (23-31); Chloride 106 mmol/L (98-107); Glucose 208 mg/dL (80-115); Potassium 4.3 mmol/L (3.5-5.1); Sodium 139 mmol/L (136-145)
== END 2021-06-17 15:10 | disposition home or self-care (01) ==
LOC: ERS 10:10 → 2SW 16:57
PROVIDERS: ADMIT Internal Medicine; ATTEND Internal Medicine
DX: J44.1 Chronic obstructive pulmonary disease with (acute) exacerbation (principal); R07.89 Other chest pain; I25.10 Atherosclerotic heart disease of native coronary artery without angina pectoris; N17.9 Acute kidney failure, unspecified; I12.9 Hypertensive chronic kidney disease with stage 1 through stage 4 chronic kidney disease, or unspecified chronic kidney disease; N18.30 Chronic kidney disease, stage 3 unspecified; E78.5 Hyperlipidemia, unspecified; I48.0 Paroxysmal atrial fibrillation; G47.33 Obstructive sleep apnea (adult) (pediatric); F17.210 Nicotine dependence, cigarettes, uncomplicated; F25.9 Schizoaffective disorder, unspecified; F41.9 Anxiety disorder, unspecified; K21.9 Gastro-esophageal reflux disease without esophagitis; E66.01 Morbid (severe) obesity due to excess calories; Z68.41 Body mass index [BMI] 40.0-44.9, adult; Z20.822 Contact with and (suspected) exposure to COVID-19; Z95.5 Presence of coronary angioplasty implant and graft; Z79.01 Long term (current) use of anticoagulants; Z79.899 Other long term (current) drug therapy; Z79.82 Long term (current) use of aspirin
CPT/HCPCS: 71045; 80048 ×4; 80053; 83735; 84484 ×2; 85025 ×2; 93005; 94640 ×4; 94760; 96374; 96375; 96376; 97139 ×4; 99285; G0378 ×4; U0003; U0005; 36415; J2405; J2920; J7050; J7512; J7620

== ENCOUNTER 2022-03-09 11:20 | Emergency (ER) | payer MEDICARE, MEDICAID | END 2022-03-09 13:25 | disposition home or self-care (01) | LOC: ERS 11:20 | DX: U07.1 COVID-19 (principal); J44.1 Chronic obstructive pulmonary disease with (acute) exacerbation; I25.2 Old myocardial infarction; K21.9 Gastro-esophageal reflux disease without esophagitis; E78.5 Hyperlipidemia, unspecified; I10 Essential (primary) hypertension; F17.210 Nicotine dependence, cigarettes, uncomplicated; Z79.899 Other long term (current) drug therapy | CPT/HCPCS: 71045; U0003; U0005 ==

== ENCOUNTER 2022-05-29 11:40 | Outpatient (CLI) | payer OTHER, MEDICAID | END 2022-05-29 11:41 | disposition home or self-care (01) | LOC: DTY/OP 11:40 | PROVIDERS: ATTEND Family Medicine | DX: E11.65 Type 2 diabetes mellitus with hyperglycemia (principal); Z71.3 Dietary counseling and surveillance | CPT/HCPCS: 97802 ==

== ENCOUNTER 2022-07-26 13:22 | Outpatient (CLI) | payer OTHER, MEDICAID ==
[2022-07-26 14:38] LABS: Hemoglobin 13.8 g/dL (13.5-17.5); Mean Corpuscular HGB CONC 34.3 g/dL (32.0-36.0); Mean Corpuscular Hemoglobin 34.5 pg (27.0-33.0); Mean Corpuscular Volume 100.5 fl (81.2-95.1); Platelet Count 300 10x3/uL (150-450); RBC Distribution Width 15.6 % (11.5-14.5); White Blood Cell (WBC) Count 5.8 10x3/uL (3.5-10.5)
[2022-07-26 14:50] LABS: INR-International Normal Ratio 1.3; PTT 48.9 sec (22.0-33.0)
[2022-07-26 15:03] LABS: Anion Gap 14 mmol/L (10-20); BUN (Urea Nitrogen) 21 mg/dL (8.4-25.7); Calc. Creatinine Clearance 0 mL/min (70-130); Calcium 9.7 mg/dL (7.8-10.44); Carbon Dioxide 23 mmol/L (23-31); Chloride 109 mmol/L (98-107); Estimated GFR 63; Glucose 88 mg/dL (80-115); Potassium 4.3 mmol/L (3.5-5.1); Sodium 142 mmol/L (136-145)
[2022-07-26 16:26] LABS: Bilirubin Neg (Negative); Blood, Urine Negative (Negative); Clarity Clear (Clear); Glucose, Urine (Dipstick) 250 mg/dL (Negative); Ketone, Urine Negative (Negative); Leukocyte 100 (Negative); Nitrite Negative (Negative); Protein, Urine (Dipstick) 15 mg/dl (Neg-Trace); Urobilinogen Normal mg/dL (Less than 2)
[2022-07-26 16:35] LABS: Bacteria/HPF Rare-Few HPF (None Seen); RBC/HPF 0-3 HPF (0-3); Squamous Epithelial 0-3 HPF (0-3)
== END 2022-07-26 13:23 | disposition home or self-care (01) ==
LOC: LABBT 13:22
PROVIDERS: ATTEND Urology
DX: Z01.818 Encounter for other preprocedural examination (principal); N99.111 Postprocedural bulbous urethral stricture, male; E11.9 Type 2 diabetes mellitus without complications; F17.210 Nicotine dependence, cigarettes, uncomplicated; F20.9 Schizophrenia, unspecified; G47.33 Obstructive sleep apnea (adult) (pediatric); I25.10 Atherosclerotic heart disease of native coronary artery without angina pectoris; N52.01 Erectile dysfunction due to arterial insufficiency
CPT/HCPCS: 80048; 81001; 85027; 85610; 85730; 87086; 93005; 93010

== ENCOUNTER 2022-08-08 08:37 | Day surgery (SDC) | payer OTHER, MEDICAID ==
[2022-08-07 14:26] VITALS: BMI 42.1
[~2022-08-08 08:37] MED LIST: Triamcinolone Acetonide 40 MG in Sodium Chloride 0.9% 4 ML FS SCH
[2022-08-08] MEDS ORDERED: FENTANYL 50 MCG/ML 1 ML VIAL ONE (10:54)
[2022-08-08] MEDS ORDERED: SUGAMMADEX SODIUM 200 MG/2 ML VIAL ONE (10:55)
[2022-08-08] MEDS ORDERED: Famotidine/PF 20 mg/2ml Vial ONE (11:02)
[2022-08-08] MEDS ORDERED: Levofloxacin 500 mg/D5W 100 ml Premix Bag ONE (11:09)
[2022-08-08] MEDS ORDERED: Rocuronium Bromide 10 MG/ML (10ML VIAL) ONE (11:17)
[2022-08-08] MEDS ORDERED: GLYCOPYRROLATE/PF 0.2 MG/ML VIAL ONE (11:17)
[2022-08-08] MEDS ORDERED: Ondansetron PF 4 MG/2 ML Vial ONE (11:17)
[2022-08-08] MEDS ORDERED: ePHEDrine 50 MG/ML VIAL ONE (11:17)
[2022-08-08] MEDS ORDERED: Metoclopramide HCl 10 MG/2 ML VIAL ONE (11:17)
[2022-08-08] MEDS ORDERED: PROPOFOL 200 MG/20 ML VIAL ONE (11:17)
[2022-08-08] MEDS ORDERED: Phenylephrine 10 MG/ML VIAL ONE (11:17)
[2022-08-08] MEDS ORDERED: Iopamidol 10 ML FS ONE (11:37)
[2022-08-08] MEDS ORDERED: Iopamidol 0 ML FS ONE (11:37)
[2022-08-08] MEDS ORDERED: Labetalol HCl 100 MG/20 ML VIAL ONE (12:52)
[2022-08-08] MEDS ORDERED: hydrALAZINE 20 MG/ML VIAL ONE (13:11)
== END 2022-08-08 14:35 | disposition home or self-care (01) ==
LOC: SDC 08:37
PROVIDERS: ATTEND Urology
PROC: 0TND8ZZ Release Urethra, Via Natural or Artificial Opening Endoscopic (ICD-10-PCS; principal; 2022-08-08)
PROC: 3E0K83Z Introduction of Anti-inflammatory into Genitourinary Tract, Via Natural or Artificial Opening Endoscopic (ICD-10-PCS; 2022-08-08)
DX: N99.111 Postprocedural bulbous urethral stricture, male (principal); N40.1 Benign prostatic hyperplasia with lower urinary tract symptoms; N13.8 Other obstructive and reflux uropathy; N32.89 Other specified disorders of bladder; I10 Essential (primary) hypertension; I48.91 Unspecified atrial fibrillation; Z79.01 Long term (current) use of anticoagulants; Z79.4 Long term (current) use of insulin; Z79.82 Long term (current) use of aspirin; Z79.84 Long term (current) use of oral hypoglycemic drugs; Z79.899 Other long term (current) drug therapy; Z95.5 Presence of coronary angioplasty implant and graft
CPT/HCPCS: 51610; 52276; 52283; 74450; 82962; J3010; 36416; J0360; J1956; J2370; J2405; J2704; J2765; J3301; J3490; Q9966; S0028

== ENCOUNTER 2025-03-27 07:08 | Emergency (ER) | payer OTHER ==
[2025-03-27] MEDS ORDERED: Acetaminophen 325 MG TAB ONE (07:38)
[2025-03-27] MEDS ORDERED: Lidocaine Viscous Sol 2% 15 ml UD Cup ONE (07:38)
[2025-03-27] MEDS ORDERED: Mag-Al 1200 mg/1200 mg/30 ML UDCUP ONE (07:38)
== END 2025-03-27 08:30 | disposition home or self-care (01) ==
LOC: ERS 07:08
DX: J02.9 Acute pharyngitis, unspecified (principal); E78.5 Hyperlipidemia, unspecified; I10 Essential (primary) hypertension; E11.9 Type 2 diabetes mellitus without complications; I25.2 Old myocardial infarction; K21.9 Gastro-esophageal reflux disease without esophagitis; Z79.899 Other long term (current) drug therapy; Z79.01 Long term (current) use of anticoagulants
CPT/HCPCS: 87081; 87426; 87430; 99283

== ENCOUNTER 2025-07-13 08:00 | Observation (INO) | payer OTHER ==
[2025-07-13 08:20] LABS: #Basophils Less than 0.03 10x3/uL (0.0-0.2); #Eosinophils 0.14 10x3/uL (0.0-0.7); #Monocytes 0.33 10x3/uL (0.11-0.59); #Neutrophils 5.50 10x3/uL (1.40-6.50); %Basophils 0.1 % (0.0-1.0); %Eosinophils 2.1 % (0.0-10.0); %Lymphocytes 10.2 % (21.0-51.0); %Monocytes 4.9 % (0.0-10.0); %Neutrophils 82.3 % (42.0-75.0); Hematocrit 38.0 % (42.0-52.0); Hemoglobin 12.4 g/dL (14.0-18.0); Mean Corpuscular Hemoglobin 32.5 pg (27.0-31.0); Mean Corpuscular Volume 99.5 fL (78.0-98.0); Platelet Count 282 10x3/uL (130-400); Red Blood Cell (RBC) Count 3.82 mill/uL (4.70-6.10); White Blood Cell (WBC) Count 6.69 10x3/uL (4.8-10.8)
[2025-07-13] MEDS ORDERED: Mag-Al 1200 mg/1200 mg/30 ML UDCUP ONE (08:23)
[2025-07-13] MEDS ORDERED: Famotidine/PF 20 mg/2ml Vial ONE (08:23)
[2025-07-13] MEDS ORDERED: Lidocaine Viscous Sol 2% 15 ml UD Cup ONE (08:23)
[2025-07-13 08:33] LABS: ALT (SGPT) 40 U/L (Less than 45); AST (SGOT) 60 U/L (11-34); Albumin 4.8 g/dL (3.1-4.5); Alkaline Phosphatase 85 U/L (40-110); Anion Gap 15 mmol/L (10-20); BUN (Urea Nitrogen) 17 mg/dL (8.4-25.7); Bilirubin, Total 0.7 mg/dL (0.3-1.2); Calc. Creatinine Clearance 0 mL/min (70-130); Calcium 9.6 mg/dL (7.8-10.44); Carbon Dioxide 20 mmol/L (23-31); Chloride 112 mmol/L (98-107); Globulin 3.6 g/dL (2.4-3.5); Glucose 130 mg/dL (83-110); Lipase 56 U/L (8-78); Potassium 4.0 mmol/L (3.5-5.1); Sodium 143 mmol/L (136-145)
[2025-07-13] MEDS ORDERED: Iopamidol 370 76% 100 ML VIAL ONE (09:39)
[2025-07-13] MEDS ORDERED: Acetaminophen 325 MG TAB PO PRN (14:23)
[2025-07-13] MEDS ORDERED: Ondansetron PF 4 MG/2 ML Vial IVP PRN (14:23)
[2025-07-13 14:53] VITALS: BMI 40.9
[2025-07-13] MEDS: Sucralfate 1 GM TAB PO SCH (15:29)
[2025-07-13 15:51] LABS: Hematocrit 34.4 % (42.0-52.0); Hemoglobin 11.1 g/dL (14.0-18.0)
[2025-07-13] MEDS: D5 1/2 NS w/20 mEq KCL 1,000 ML IV SCH (16:01)
[2025-07-13] MEDS: Pantoprazole 40 MG VIAL IVP SCH (16:02)
[2025-07-13 20:56] LABS: Hematocrit 31.6 % (42.0-52.0); Hemoglobin 10.3 g/dL (14.0-18.0)
[2025-07-14 00:21] LABS: Campy jejuni + coli by PCR Negative (Negative); STEC Shiga Toxin 1+2 Negative (Negative); Salmonella spp. by PCR Negative (Negative); Shigella spp + EIEC by PCR Negative (Negative)
[2025-07-14 04:47] LABS: #Basophils Less than 0.03 10x3/uL (0.0-0.2); #Eosinophils 0.13 10x3/uL (0.0-0.7); #Monocytes 0.57 10x3/uL (0.11-0.59); #Neutrophils 1.80 10x3/uL (1.40-6.50); %Basophils 0.3 % (0.0-1.0); %Eosinophils 3.4 % (0.0-10.0); %Lymphocytes 33.9 % (21.0-51.0); %Monocytes 15.0 % (0.0-10.0); %Neutrophils 47.1 % (42.0-75.0); Hematocrit 32.7 % (42.0-52.0); Hemoglobin 10.9 g/dL (14.0-18.0); Mean Corpuscular Hemoglobin 33.4 pg (27.0-31.0); Mean Corpuscular Volume 100.3 fL (78.0-98.0); Platelet Count 225 10x3/uL (130-400); Red Blood Cell (RBC) Count 3.26 mill/uL (4.70-6.10); White Blood Cell (WBC) Count 3.81 10x3/uL (4.8-10.8)
[2025-07-14 05:07] LABS: Anion Gap 11 mmol/L (10-20); BUN (Urea Nitrogen) 14 mg/dL (8.4-25.7); Calc. Creatinine Clearance 101 mL/min (70-130); Calcium 8.7 mg/dL (7.8-10.44); Carbon Dioxide 20 mmol/L (23-31); Chloride 112 mmol/L (98-107); Glucose 131 mg/dL (83-110); Potassium 4.0 mmol/L (3.5-5.1); Sodium 139 mmol/L (136-145)
[2025-07-14 07:53] LABS: Hematocrit 33.2 % (42.0-52.0); Hemoglobin 10.9 g/dL (14.0-18.0)
[2025-07-14] MEDS: Pantoprazole 40 MG VIAL IVP SCH (08:38)
[2025-07-14 11:47] VITALS: BP 150/91; TEMP 97
[2025-07-14 14:51] LABS: Hematocrit 33.5 % (42.0-52.0); Hemoglobin 11.0 g/dL (14.0-18.0)
== END 2025-07-14 16:50 | disposition home or self-care (01) ==
LOC: ERS 08:00 → ERHOLD 13:25 → T4-B 14:44
PROVIDERS: ADMIT Internal Medicine; ATTEND Family Medicine
DX: A08.4 Viral intestinal infection, unspecified (principal); I10 Essential (primary) hypertension; I25.10 Atherosclerotic heart disease of native coronary artery without angina pectoris; E11.9 Type 2 diabetes mellitus without complications; E78.5 Hyperlipidemia, unspecified; J44.9 Chronic obstructive pulmonary disease, unspecified; F17.210 Nicotine dependence, cigarettes, uncomplicated; Z79.82 Long term (current) use of aspirin; Z79.84 Long term (current) use of oral hypoglycemic drugs; Z79.51 Long term (current) use of inhaled steroids; Z79.899 Other long term (current) drug therapy
CPT/HCPCS: 71045; 74177; 80053; 82962; 83690; 83880; 84484; 85014; 85018; 85025; 85379; 87324; 87449; 87505; 93005; 94760; J1308; J2470; J3480; 36415; 36416; 80048; 96361; 96374; Q9967